=== PATIENT | female | born 1990 | race Caucasian/White ===

== ENCOUNTER → 2018-03-20 14:30 | Outpatient (CLI) | payer OTHER, SELFPAY ==
[2018-03-21 12:47] LABS: Chlamydia Trachomatis by PCR Negative (Negative); Neisserai gonorrhoeae by PCR Negative (Negative); Probe Check PASS; Sample Adequacy Control PASS; Specimen Processing Control PASS
== END ==
PROVIDERS: Visit Provider Obstetrics & Gynecology
DX: Z11.3 Encounter for screening for infections with a predominantly sexual mode of transmission (principal)
CPT/HCPCS: 87491; 87591

== ENCOUNTER → 2018-04-11 16:36 | Outpatient (CLI) | payer OTHER, SELFPAY ==
[2018-04-11 17:49] LABS: Absolute Lymphocyte Count 2.19 X10^3/ul (0.83-4.51); Absolute Neutrophil Count 6.1 X10^3/uL (2.0-7.7); Basophil# 0.02 X10^3/uL; Basophil% 0.2 % (0-1); Eosinophil# 0.13 X10^3/uL; Eosinophils% 1.4 % (0-5); Hematocrit 40.7 % (37-47); Hemoglobin 14.4 g/dl (12.0-15.0); Lymphocyte # 2.19 X10^3/ul (4.0); Mean Corp Hgb Conc 35.4 g/gl (32-36); Mean Corpuscular Hgb 29.6 pg (27.0-32.0); Mean Corpuscular Volume 83.7 fL (81-99); Mean Platelet Vol. 8.9 fl (6.2-12.0); Monocyte# 0.62 X10^3/uL; Monocyte% 6.8 % (0-10); Neutrophil # 6.13 X10^3/uL (2.7-7.7); Neutrophil % 67.3 % (47-70); Platelet Count 249 K/mm3 (150-450); RBC Distribution Width CV 11.9 % (11.6-14.6); RBC Distribution Width SD 36.4 fl (35.1-43.9); Red Blood Count 4.86 M/mm3 (4.2-5.4); White Blood Count 9.1 K/mm3 (4.4-11.0)
[2018-04-11 18:32] LABS: POSITIVE COUNT NO; POSITIVE DIFFERENTIAL NO; POSITIVE MORPHOLOGY NO
[2018-04-11 18:38] LABS: Color, Urine Straw (Yellow); Glucose, Dipstick Normal (Normal); Ketone-Dipstick Negative (Negative); Leukocyte Esterase-Dipstick Negative /ul (Negative); Nitrite-Dipstick Negative (Negative); Occult Blood-Urine Negative /ul (Negative); Protein-Dipstick Negative (Negative); Specific Gravity, Urine 1.005 (1.002-1.030); Urine Bilirubin Dipstick Negative (Negative); Urine Clarity Clear (Clear); Urine Urobilinogen Normal (Normal)
[2018-04-11 18:51] LABS: HIV - WCH Non-Reactive (Nonreactive); Rubella IgG 88.5 IU/mL
[2018-04-13 03:32] LABS: Prenatal RPR NONREACTIVE (NONREACTIVE)
[2018-04-14 20:15] LABS: HEPATITIS B SURFACE AG Negative (Negative); Hep C Antibodies <0.1 s/co ratio (0.0-0.9); V-Zoster IgG (Immunity) < 135 index (Immune >165)
== END ==
PROVIDERS: Visit Provider Obstetrics & Gynecology
DX: Z34.81 Encounter for supervision of other normal pregnancy, first trimester (principal)
CPT/HCPCS: 36415; 81002; 84443; 85025; 86703; 86762; 86787; 86803; 87340

== ENCOUNTER → 2018-09-25 | Outpatient (CLI) | payer OTHER, SELFPAY | END | disposition home or self-care (01) | LOC: LABSPEC 09-26 09:34 | PROVIDERS: Visit Provider Obstetrics & Gynecology | DX: Z36.85 Encounter for antenatal screening for Streptococcus B (principal) | CPT/HCPCS: 87081 ==

== ENCOUNTER 2018-10-30 05:35 | Inpatient (IN) | payer SELFPAY ==
[2018-10-30 05:25] VITALS: BMI 27.1
[2018-10-30 05:30] LABS: ROM Internal Control Test YES-OK TO RESULT pt. (Internal QC)
[2018-10-30 05:31] LABS: ROM Patient Test POSITIVE (Negative)
[2018-10-30] MEDS: Lactated Ringers 1,000 ML 50 ML IV ×4 (06:20→23:54)
[2018-10-30 06:47] LABS: Absolute Neutrophil Count 9.4 X10^3/uL (2.0-7.7); Basophil# 0.07 X10^3/uL; Basophil% 0.5 % (0-1); Eosinophil# 0.16 X10^3/uL; Eosinophils% 1.2 % (0-5); Hematocrit 36.8 % (37-47); Hemoglobin 13.1 g/dL (12.0-15.0); Lymphocyte % 18.9 % (19-41); Mean Corp Hgb Conc 35.6 g/dL (32-36); Mean Corpuscular Hgb 32.3 pg (27.0-32.0); Mean Corpuscular Volume 90.9 fL (81-99); Mean Platelet Vol. 9.6 fl (6.2-12.0); Monocyte% 7.3 % (0-10); NRBC Flagged by Analyzer 0 % (0-5); Neutrophil % 68.4 % (47-70); Platelet Count 205 K/mm3 (150-450); RBC Distribution Width CV 12.5 % (11.6-14.6); RBC Distribution Width SD 41.1 fl (35.1-43.9); Red Blood Count 4.05 M/mm3 (4.2-5.4); White Blood Count 13.7 K/mm3 (4.4-11.0)
--- NOTE | 2018-10-30 06:52 | HP.PCM_ITS ---
History and Physical Date of Admission: 10/30/18 [facility] History of this : 28 yo female Ab0 with EDC 10/23/2018 by 9 weeks 0 days Ultrasound, presents to Labor and Delivery. care remarkable for - NOT immune to chickenpox IgG low, MSAFP and CF testing declined, Prefers no epidural, Clomid , and childbirth ed classes encouarged. Presents in active labor at 41w0d with SROM at home. Pertinent Past Medical History: Non-smoker Allergies: No Known Allergies Medications: During - clomiphene citrate 50 mg tablet; Prometrium 200 mg capsule; clomiphene citrate 50 mg tablet; letrozole 2.5 mg tablet; Prometrium 200 mg capsule; Vitamin tablet Review of Systems: Non-contributory PHYSICAL EXAMINATION General Appearence: 28 yo female in no acute distress Vital Signs: AF, VSS Heart: RRR without rubs or gallops Lungs: CTA x 2 Breasts: deferred Abdomen: gravid Pelvis: Cervix: 2/50 Presentation: cephalic Station: -2 Fetus: Size: AGA Movement: present Heart: present Impression /Plan: Intrauterine in early labor. Preparations in pr ogress for delivery. Expect .
[2018-10-30] MEDS: Oxytocin 30 units/NS 500 ml 30 UNITS/500 ML IV.SOLN IV (07:30)
--- NOTE | 2018-10-30 07:52 | PCM.PN.BLA ---
Progress Note O positive RI. SROM this am at 0245 Admitted for Pitocin induction at 41 wks. Pitocin at 2 mIU/min EFM 130-140s accels. Irregular UCs at intervals of more than q 10 mins CX: deferred, at admission 2 /60/-2 +ROM A/P: 41 wk induction after SROM. Continue Pitocin Watch progress and tolerance of labor.
--- NOTE | 2018-10-30 13:01 | PCM.PN.BLA ---
Progress Note LABOR PROGRESS SROM at 41 wk In shower Plans no epidural. AVSS Pitocin at 5 mIU/min (dec from 8 mIU/min d/t many UCs) EFM 130-140s avg variability. Accels. Category I tracing UCs q 3-5 mins CX last RN check 3 1/2 cm, 80 / -1 A/P: 41 wk SROM. Labor. Pitocin induction. Continue Pitocin. Watch progress, descent.
[2018-10-30] MEDS: Nalbuphine 10 MG/ML Ampul IV (15:31)
--- NOTE | 2018-10-30 18:24 | PCM.PN.BLA ---
Progress Note 41 wk SROM this am 0245. Light [facility] now S/P Nubain for pain. Wanting another dose soon. Has been back and forth to shower AVSS Pitocin at 9 mIU/min EFM: 120-130s avg variability. Accels early decels, variable decels. Category I tracing UCs q 2-3 mins. CX: 7/100/-1 A/P 41 wk SROM pitocin induction after SROM. Adequate progress. Continue labor.
[2018-10-30] MEDS: fentaNYL-bupivacaine (epidural) 100 ML BAG EPIDURAL ×2 (19:08→23:18)
--- NOTE | 2018-10-30 23:36 | PN_ITS ---
Progress Note 41 wk SROM at 0245 10/30/18 Comfortable w/ epidural and not feeling UCs or pressure with UCs. Pitocin turned off 2/2 variables . some ? lates (on external monitoring). AVSS EFM 120-140s avg variability with accels. Also periods of dec variability. Variables noted (some with late onset), lasting up to 1 min Accel prior to variable. Most variables with UCs. [place] with UCs q 2-5 , now to 8 min without pitocin AGA fetus. CX reducible anterior lip, caput noted. 0 to +1 station IUPC placed for potential amnioinfusion. Scalp stim noted. A/P: 41 wk EGA nearing 41 1/7 wk EGA SROM 21 hr ago. Remains afeb, with inadequate UCs w/o pitocin. Resume pitocin and inc prn to adequate mVUs. Begin pushing, consider amnioinfusion prn.
[2018-10-30] MEDS: Amnioinfusion- 0.9% NS 1,000 ML IV.SOLN. INTRA-UTER (23:47)
[2018-10-31] MEDS: Oxytocin 30 units/NS 500 ml 30 UNITS/500 ML IV.SOLN 334 UNITS IV (02:56)
--- NOTE | 2018-10-31 03:05 | PCM.OPRPT ---
Vaginal Delivery Maternal Presentation: Spontaneous Rupture of Membranes 41 wk SROM Method of Induction: Pitocin Amniotic Membrane Rupture Type: Spontaneous at home Rupture of Membrane time: 0230 10/30/18 Amniotic Fluid Description: Clear - to meconium stained fluid in labor. Final LILIA: 10/23/18 Final LILIA Source: US <20 weeks Gestational age: 41 Weeks and 1 Days Date of Procedure: 10/31/18 Pre-Operative Diagnosis: 41 wk SROM Post-Operative Diagnosis: 41 1/7 wk induction Surgery/ Procedure Performed: Spontaneous Vaginal Delivery Type of Anesthesia: Epidural Description of Procedure: Vacuum assisted vaginal delivery. Significant caput. single pull in green zone on [place] resulted in vaginal delivery. Head delivered CAMILO. OP and nares bulb suctioned on perineum. Nuchal cord times two reduced. Shoulders delivered easily Infant to maternal abdomen for warming, then to Dr Dean present for delivery 2/2 vacuum assist and meconium stained fluid. Routine ABG and VBG collected Infant back to maternal abdomen after Dr. Dean evaluated. PP exam; 2nd deg posterior vaginal and perineal laceration. Repaired under epidural to hemostatic, intact t with 3-0 Vicryl No other lacerations. Placenta delivered by spont expulsion, 3V normal appearing, intact with trailing membranes. Meconium stained. EBL 350 cc pt and infant tole delivery well> to recovery, stable condition [place] and needle counts correct times two. Presentation: Vertex, CAMILO Placental Delivery Description: Spontaneous, Expressed Placenta Disposition: [facility] Cord Vessel Description: 3 Vessels Cord Entanglement: Around neck x 2, loose Drain: [place] to straight drain Estimated Blood Loss: 350 A gender: Male Episiotomy Description: None Laceration: Midline, Perineal Extension/lac, Vaginal Extension/lac, 2nd degree Medications given after delivery: IV Pitocin Complications: None
--- NOTE | 2018-10-31 03:12 | DCINST_ITS ---
Discharge Diet: No Restrictions Discharge Activity: May Shower, May Take a Tub Bath May resume sexual activity in: 4-6 weeks Additional Activity Instructions:: Nothing in the vagina for 4-6 weeks. You may return to work/school in 6 weeks. Additional Instructions: If you experience any of the following, contact your healthcare provider. * Bleeding that soaks a pad every hour for 2 hours * Fever 100.4 or higher * Unrelieved abdominal pain * Problems urinating (including inability to urinate or burning while urinating). * Visual changes * Severe headache * Flu-like symptoms * Pain or redness in one of both of your breasts * Pain, warmth, tenderness or swelling in your legs, especially the calf area * Frequent nausea and vomiting * Symptoms of depression or anxiety If you experience any of the following, call 911 or go to the nearest Emergency Room. * Chest pain * Problems breathing * Seizure activity * Partial or complete paralysis of a body part, slurred speech, weakness or drooping of the face, or a sudden inability to walk or hold your balance Allergies/Adverse Reactions: Allergies No Known Allergies Allergy (Verified 10/30/18 05:21) Medications to take at Discharge Pnv No.121/Iron/Folic Acid [ Multivitamin Tablet] 1 ea PO DAILY 10/30/18 Please Follow Up With: Lionel Zelaya MD - [phone] When: Call to make an appointment with your doctor in 6 weeks. Primary Care Physician: Care Physician,No Primary [Primary Care Provider] - Test Results: Test results from this visit will be discussed in further detail at your follow- up appointment, if applicable. Proposed Discharge Date: 11/02/18
--- NOTE | 2018-10-31 03:12 | PCM.DCVAG ---
Discharge Diet: No Restrictions Discharge Activity: May Shower, May Take a Tub Bath May resume sexual activity in: 4-6 weeks Additional Activity Instructions:: Nothing in the vagina for 4-6 weeks. You may return to work/school in 6 weeks. Additional Instructions: If you experience any of the following, contact your healthcare provider. Bleeding that soaks a pad every hour for 2 hours Fever 100.4 or higher Unrelieved abdominal pain Problems urinating (including inability to urinate or burning while urinating). Visual changes Severe headache Flu-like symptoms Pain or redness in one of both of your breasts Pain, warmth, tenderness or swelling in your legs, especially the calf area Frequent nausea and vomiting Symptoms of depression or anxiety If you experience any of the following, call 911 or go to the nearest Emergency Room. Chest pain Problems breathing Seizure activity Partial or complete paralysis of a body part, slurred speech, weakness or drooping of the face, or a sudden inability to walk or hold your balance Allergies/Adverse Reactions: Allergies No Known Allergies Allergy (Verified 10/30/18 05:21) Medications to take at Discharge Pnv No.121/Iron/Folic Acid [ Multivitamin Tablet] 1 ea PO DAILY 10/30/18 Please Follow Up With: Lionel Zelaya MD - [phone] When: Call to make an appointment with your doctor in 6 weeks. Primary Care Physician: Care Physician,No Primary [Primary Care Provider] - Test Results: Test results from this visit will be discussed in further detail at your follow-up appointment, if applicable. Proposed Discharge Date: 11/02/18
[2018-10-31] MEDS: Oxytocin 30 units/NS 500 ml 30 UNITS/500 ML IV.SOLN 167 UNITS IV (03:27)
[2018-10-31] MEDS: 0.9% Saline Lock 10 ML Syringe IV (05:00)
[2018-10-31 08:15] VITALS: BP 135/64; PULSE 105; RESP 16; TEMP 37.2
--- NOTE | 2018-10-31 08:26 | PCM.PN.OB ---
Subjective: Day of delivery Vacuum assisted vaginal delivery Deep variables with pushing. CAN times two at delivery. Doing well. No concerns voiced. Breast feeding. Baby just over 6# weight. - Physical Exam General: Alert, Oriented x3, Cooperative, No apparent distress HEENT: Atraumatic, EOMI Neck: Supple Abdomen: Soft - Fundus firm NT inferior to umbilicus. Minimal lochia on pad Psych/Mental Status: Normal Affect Weight: 67.318 kg Body Mass Index (BMI) 27.1 Intake and Output for Last 24 Hours 10/29/18 10/30/18 10/31/18 23:59 23:59 23:59 Intake Total 2948 / 2948 1979 / 1979 Output Total 1300 / 1300 1900 / 1900 Balance 1648 / 1648 80 / 80 Laboratory Tests Past 24 Hrs 10/30/18 06:25 Blood Type O POSITIVE Antibody Screen NEGATIVE Medical Necessity - Tobacco Use Smoking Status: Never smoker Assessment/Plan PPD#0 day of delivery. Vacuum assist Stable continue routine care.
[2018-10-31] MEDS: Prenatal Vits Tablet 1 TABLET PO (10:24)
[2018-10-31 12:10] VITALS: BP 117/68; PULSE 99; RESP 16; TEMP 36.6
[2018-10-31 17:30] VITALS: BP 108/55; PULSE 77; RESP 16; TEMP 36.9
[2018-10-31 20:07] VITALS: BP 127/68; PULSE 108; RESP 16; TEMP 36.6; O2SAT 98
[2018-11-01 00:21] VITALS: BP 104/53; PULSE 92; RESP 16; TEMP 36.9
--- NOTE | 2018-11-01 01:09 | NURSING ---
this RN confirmed with [facility] that they are charging for the breast pump being used. education given to pt concerning pump settings and frequency of when to pump. pt aware to label and take colostrum to [facility] as needed.
[2018-11-01 03:26] VITALS: BP 106/62; PULSE 93; RESP 16; TEMP 37.2
[2018-11-01 08:00] VITALS: BP 112/64; PULSE 90; RESP 16; TEMP 36.4
--- NOTE | 2018-11-01 08:15 | PCM.PN.OB ---
Subjective: PPD#1 Vacuum assisted vaginal delivery Doing well. Some soreness at perineum. Breast feeding. Minimal pain and minimal bleeding. - Physical Exam General: Alert, Oriented x3, Cooperative, No apparent distress HEENT: Atraumatic Neck: Supple Abdomen: Soft - Fundus firm NT at inferior to umbilicus Neurological: Cranial nerves II-XII grossly intact Psych/Mental Status: Normal Affect Vital Signs Temp Pulse Resp BP Pulse Ox 97.5 F L 90 16 112/64 98 11/01/18 08:00 11/01/18 08:00 11/01/18 08:00 11/01/18 08:00 10/31/18 20:07 Oxygen Delivery Method Room Air Weight: 67.318 kg Body Mass Index (BMI) 27.1 Intake and Output for Last 24 Hours 10/30/18 10/31/18 11/01/18 23:59 23:59 23:59 Intake Total 2948 / 2948 1979 / 1979 Output Total 1300 / 1300 4100 / 4100 Balance 1648 / 1648 -2120 / -2120 Medical Necessity - Tobacco Use Smoking Status: Never smoker Assessment/Plan PPD#1 day of delivery. Vacuum assist Stable continue routine care.
[2018-11-01] MEDS: Prenatal Vits Tablet 1 TABLET PO (12:25)
[2018-11-01 13:49] VITALS: BP 99/57; PULSE 84; RESP 14; TEMP 36.1
[2018-11-01 13:54] LABS: Hematocrit 35.9 % (37-47); Hemoglobin 12.4 g/dL (12.0-15.0); Mean Corp Hgb Conc 34.5 g/dL (32-36); Mean Corpuscular Hgb 32.2 pg (27.0-32.0); Mean Corpuscular Volume 93.2 fL (81-99); Mean Platelet Vol. 9.6 fl (6.2-12.0); Platelet Count 254 K/mm3 (150-450); RBC Distribution Width CV 12.9 % (11.6-14.6); Red Blood Count 3.85 M/mm3 (4.2-5.4); White Blood Count 17.2 K/mm3 (4.4-11.0)
[2018-11-01 18:00] VITALS: BP 107/66; PULSE 84; RESP 16; TEMP 36.7
[2018-11-01 19:54] VITALS: BP 111/63; PULSE 94; RESP 16; TEMP 36.7
[2018-11-02 02:48] VITALS: BP 99/65; PULSE 84; RESP 18; TEMP 36.4
--- NOTE | 2018-11-02 08:19 | PCM.PN.BLA ---
Progress Note Attempted to round. patient not in room. Baby is in [facility]. Probable dischg on 11/03/18
[2018-11-02 10:00] VITALS: BP 110/81; PULSE 95; RESP 15; TEMP 36.7; O2SAT 98
--- NOTE | 2018-11-02 13:04 | PCM.PN.OB ---
Subjective: talking on phone NAD - Physical Exam General: Alert, Oriented x3 HEENT: Atraumatic, EOMI Neck: Supple Psych/Mental Status: Normal Affect Vital Signs Temp Pulse Resp BP Pulse Ox 98.1 F 95 15 110/81 H 98 11/02/18 10:00 11/02/18 10:00 11/02/18 10:00 11/02/18 10:00 11/02/18 10:00 Oxygen Delivery Method Room Air Weight: 67.318 kg Body Mass Index (BMI) 27.1 Intake and Output for Last 24 Hours 10/31/18 11/01/18 11/02/18 23:59 23:59 23:59 Intake Total 1979 / 1979 Output Total 4100 / 4100 Balance -2120 / -2120 Laboratory Tests Past 24 Hrs 11/01/18 13:35 WBC 17.2 H RBC 3.85 L Hgb 12.4 Hct 35.9 L MCV 93.2 MCH 32.2 H MCHC 34.5 RDW Std Deviation 44.0 H RDW Coeff of Loren 12.9 Plt Count 254 MPV 9.6 Medical Necessity - Tobacco Use Smoking Status: Never smoker Assessment/Plan PPD#2 day of delivery. Vacuum assist Stable Unable to round 2/2 not in room, then on phone. Doing well according to chart review NAD on phone Dischg home. Eligible for hotel status if baby is not released. RTO in 6 wk for pp check. , prn sooner.
--- NOTE | 2018-11-02 13:06 | PCM.DC.SUM ---
Discharge Date and Diagnosis Date of Admission: 10/30/18 - 41 wk SROM Date of Discharge: 11/02/18 Hospital Course and Treatment Summary of Care Provided: The patient is a 28 year old female admitted for induction for SROM on 10/30/18 Slow progress to complete and delivered by vacuum assisted vaginal delivery 0300 (approx time) 10/31/18 course uneventful. in [facility]. Home on PPD#2 - Physical Exam Vital Signs Temp Pulse Resp BP Pulse Ox 98.1 F 95 15 110/81 H 98 11/02/18 10:00 11/02/18 10:00 11/02/18 10:00 11/02/18 10:00 11/02/18 10:00 Oxygen Delivery Method Room Air Weight: 67.318 kg Body Mass Index (BMI) 27.1 Intake and Output for Last 24 Hours 10/31/18 11/01/18 11/02/18 23:59 23:59 23:59 Intake Total 1979 / 1979 Output Total 4100 / 4100 Balance -2120 / -2120 Laboratory Tests Past 24 Hrs 11/01/18 13:35 WBC 17.2 H RBC 3.85 L Hgb 12.4 Hct 35.9 L MCV 93.2 MCH 32.2 H MCHC 34.5 RDW Std Deviation 44.0 H RDW Coeff of Loren 12.9 Plt Count 254 MPV 9.6 Discharge Diet: No Restrictions Discharge Activity: May Shower, May Take a Tub Bath May resume sexual activity in: 4-6 weeks Additional Activity Instructions:: Nothing in the vagina for 4-6 weeks. You may return to work/school in 6 weeks. Home Medications: Medications to take at Discharge Pnv No.121/Iron/Folic Acid [ Multivitamin Tablet] 1 ea PO DAILY 10/30/18 Primary Care Physician: Care Physician,No Primary [Primary Care Provider] - Please Follow Up With: Lionel Zelaya MD - [phone] Medical Necessity - Tobacco Use Smoking Status: Never smoker Meaningful Use Info Meaningful Use Diagnoses (Choose all that apply): None applicable
== END 2018-11-02 11:30 | disposition home or self-care (01) | DRG 807 ==
LOC: WPOUT 05:38 → WP 10-31 02:56
PROVIDERS: Obstetrics & Gynecology; Admitting Provider Obstetrics & Gynecology; Referring Provider Obstetrics & Gynecology; Visit Provider Obstetrics & Gynecology
DX: O76 Abnormality in fetal heart rate and rhythm complicating labor and delivery (principal); Z37.0 Single live birth; O77.0 Labor and delivery complicated by meconium in amniotic fluid; Z3A.41 41 weeks gestation of pregnancy; O48.0 Post-term pregnancy; O69.81X0 Labor and delivery complicated by cord around neck, without compression, not applicable or unspecified; O70.1 Second degree perineal laceration during delivery
CPT/HCPCS: 59025; 59050; 84112; 85025; 85027; 86850; 86900; 99218; J7030; J7120; A4216; G0378

== ENCOUNTER → 2018-12-12 12:29 | Outpatient (CLI) | payer OTHER, SELFPAY ==
[2018-12-18 11:26] LABS: HPV Reflexed? NOT INDICATED
== END ==
PROVIDERS: Referring Provider Obstetrics & Gynecology; Visit Provider Obstetrics & Gynecology
DX: Z12.4 Encounter for screening for malignant neoplasm of cervix (principal)
CPT/HCPCS: 87624; 88175; G0145

== ENCOUNTER → 2020-09-23 11:26 | Outpatient (CLI) | payer OTHER, SELFPAY ==
[2020-09-25 03:07] LABS: Chlamydia By Nucleic Acid AMP Negative (Negative)
[2020-09-26 09:57] LABS: Gonococcus By Nucleic Acid AMP Negative (Negative)
[2020-09-30 11:16] LABS: HPV APTIMA, High Risk Negative (Negative); HPV Reflexed? YES, CHARGE PATIENT
== END ==
PROVIDERS: Visit Provider Obstetrics & Gynecology
DX: Z12.4 Encounter for screening for malignant neoplasm of cervix (principal); Z11.3 Encounter for screening for infections with a predominantly sexual mode of transmission
CPT/HCPCS: 87491; 87591; 87624; 88175; G0145

== ENCOUNTER → 2021-02-23 | Outpatient (CLI) | payer SELFPAY | END | disposition home or self-care (01) | LOC: LABSPEC 02-24 09:54 | PROVIDERS: Visit Provider Obstetrics & Gynecology | DX: Z36.85 Encounter for antenatal screening for Streptococcus B (principal) | CPT/HCPCS: 87081 ==

== ENCOUNTER 2021-03-06 07:20 | Inpatient (IN) | payer SELFPAY ==
[2021-03-06] VITALS (25 sets, daily range): BP systolic 97–129; BP diastolic 57–77; PULSE 72–110; RESP 18; TEMP 36.2–36.8; O2SAT 96–98; BMI 25.1
--- NOTE | 2021-03-06 01:55 | NURSING ---
ROM collected. results to be determined.
[2021-03-06 02:15] LABS: ROM Internal Control Test YES-OK TO RESULT pt. (Internal QC)
[2021-03-06 02:16] LABS: ROM Patient Test POSITIVE (Negative)
--- NOTE | 2021-03-06 07:51 | PCM.HP.BLA ---
History and Physical Date of Admission: 03/06/21 HPI: 30 yo at 38/2w, LILIA 03/18/21 by LMP, admitted with spontaneous rupture of membranes. Reports rupture of membranes at 2300 on 03/05/2021, reports some bloody mucus as well. Denies regular contractions. Reports movement. Denies headache, vision changes, chest pain, shortness of breath, nausea or vomiting, fevers chills, diarrhea or constipation. complicated by: Nothing CLINICAL LAB ASSISTANT history: G1: 41/1-week vacuum-assisted vaginal delivery for 3-hour pushing G2: current Medical history: Denies Surgical history: Tonsillectomy and adenoidectomy Medications: vitamin Allergies: No known drug allergies Family history: No history of blood clots or bleeding disorders Social history: Denies alcohol, smoking, drug use Review of systems: Negative otherwise noted above Physical exam: Vitals: Blood pressure 119/76 // pulse 96 // temperature 98.1 ?F // 97% oxygen saturation on room air General: Patient is no acute distress, comfortable resting in bed HEENT: Normocephalic/atraumatic, pupils equally round and reactive to light and accommodation Cardiorespiratory: No increased effort, no use of accessory muscles, regular heart rate Abdomen: Soft, nontender, gravid Extremities: No edema Neurologic: Cranial nerves II through XII grossly intact Musculoskeletal: Equal strength and movement throughout all extremities Sterile speculum exam: [place]-tinged fluid on swab, ferning slide collected however not used based on cervical exam. Cervical exam completed noting dilation of 4 cm / 60% effaced/-1 station. Moderate amount of blood-tinged fluid noted on exam. Confirming rupture of membranes. Bedside ultrasound: Fetus in cephalic position, HANSA minimal Labs: Blood type O+ Hepatitis B/C both negative Syphilis nonreactive HIV pending GBS negative 02/23 Assessment/plan 30-year-old G2, P1 at 38/2 weeks admitted with spontaneous rupture of membranes and labor. uncomplicated. -Rupture of membranes confirmed with leakage of moderate amount of blood-tinged fluid on cervical exam, no membranes palpated, bedside ultrasound with minimal amniotic fluid noted. Additionally patient has made cervical change from 2.5 cm to 4 cm since arrival to labor and delivery. -Plan for expectant management at this time. Will reevaluate cervical change and if Pitocin augmentation needed we will add at that time. -GBS negative -Admit to L&D Assessment & Plan Assessment/Plan (1) Spontaneous rupture of amniotic membranes:
[2021-03-06] MEDS: Lactated Ringers 1,000 ML 50 ML IV (08:00)
[2021-03-06 08:31] LABS: Absolute Lymphocyte Count 2.26 X10^3/uL (0.83-4.51); Absolute Neutrophil Count 10.3 X10^3/uL (2.0-7.7); Basophil# 0.12 X10^3/uL; Basophil% 0.8 % (0-1); Eosinophil# 0.15 X10^3/uL; Eosinophils% 1.1 % (0-5); Hematocrit 35.6 % (37-47); Hemoglobin 12.4 g/dL (12.0-15.0); Lymphocyte # 2.26 X10^3/ul (0.83-4.51); Lymphocyte % 15.9 % (19-41); Mean Corp Hgb Conc 34.8 g/dL (32-36); Mean Corpuscular Hgb 31.2 pg (27.0-32.0); Mean Corpuscular Volume 89.4 fL (81-99); Mean Platelet Vol. 9.4 fl (6.2-12.0); Monocyte% 6.3 % (0-10); NRBC Flagged by Analyzer 0 % (0-5); Neutrophil # 10.29 X10^3/uL (2.7-7.7); Neutrophil % 72.4 % (47-70); Platelet Count 210 K/mm3 (150-450); RBC Distribution Width CV 13.2 % (11.6-14.6); RBC Distribution Width SD 42.6 fl (35.1-43.9); Red Blood Count 3.98 M/mm3 (4.2-5.4); White Blood Count 14.2 K/mm3 (4.4-11.0)
[2021-03-06 09:27] LABS: HIV - WCH Non-Reactive (Nonreactive)
--- NOTE | 2021-03-06 15:16 | PCM.PN.BLA ---
Progress Note AROM forebag, blood tinged. CE /0. FHR cat I 135/mod mendy/+accel/no decel/. [place] q5. continue expectant management as patient is progressing.
[2021-03-06] MEDS: Oxytocin 30 units/NS 500 ml 30 UNITS/500 ML IV.SOLN 334 UNITS IV (16:45)
--- NOTE | 2021-03-06 16:56 | EX.PCM.OBRPT ---
Maternal Data Information Final LILIA: 03/18/21 Final LILIA Source: LMP Vaginal Delivery Operative Information Date of Procedure: 03/06/21 Pre-Operative Diagnosis: Hodgsno intrauterine Post-Operative Diagnosis: Hodgson intrauterine Surgery / Procedure Performed: Spontaneous Vaginal Delivery Type of Anesthesia: None Estimated Blood Loss: 400cc Findings Description of Procedure: Spontaneous vaginal delivery viable female. No nuchal cord. Baby to mom, cord clamped and cut. Spontaneous delivery of placenta. First degree laceration repaired in usual fashion, hemostatic. Left labial abrasion, hemostatic. Infant A Gender: Female (1 minute): 8 (5 minute): 9
[2021-03-06] MEDS: Ibuprofen 600 MG Tablet PO (17:47)
[2021-03-07] VITALS (10 sets, daily range): BP systolic 90–109; BP diastolic 55–68; PULSE 88–100; RESP 14–18; TEMP 36.5–36.7
--- NOTE | 2021-03-07 10:45 | PN.OBGYN_ITS ---
Subjective Subjective day 1. Feeling well. Lochia minimal. Pain controlled. Breast- feeding going well. Objective Data Objective Data Vital Signs: Vital Signs Temp Pulse Resp BP Pulse Ox 98.1 F 88 16 100/56 L 98 03/07/21 07:59 03/07/21 07:59 03/07/21 07:59 03/07/21 07:59 03/06/21 14:52 Oxygen Delivery Method Room Air Weight: 62.3 kg Body Mass Index (BMI) 25.1 Intake & Output: Intake and Output for Last 24 Hours 03/05/21 03/06/21 03/07/21 23:59 23:59 23:59 Intake Total 500.83 / 500.83 Output Total 500 / 500 Balance 0.83 / 0.83 Lab / Micro Data Result Diagrams: 03/06/21 07:50 Micro: Microbiology 03/06/21 07:50 Nasal Secretion SARS-CoV-2 Antigen (Rapid) - Final Physical Exam Const alert, oriented x3 and no apparent distress HEENT normocephalic Head and Scalp: atraumatic Neck full ROM Resp normal respiratory effort Cardio regular rate GI normal to inspection, nondistended, normoactive bowel sounds GI Narrative: Uterus 2 cm below umbilicus Back/Spine normal ROM Extremity normal to inspection Extremity Narrative: Minimal pedal edema Neuro no focal motor deficits and no sensory deficits noted Psych mental status grossly normal and affect normal Assessment & Plan (1) state: PLAN: day 1. Breast-feeding. Desires home-going today. Follow-up 2 weeks telehealth visit and 6-week visit. (2) Vaginal delivery:
--- NOTE | 2021-03-07 10:46 | PCM.DC ---
Discharge Instructions Diet Discharge Diet: No restrictions Activity Discharge Activity: Return to Normal Activity and May Shower May resume sexual activity in: 4-6 weeks Weight Bearing Status: Weight bearing as tolerated Lifting Restrictions: No greater than 25 pounds Dressing / Incision Call your doctor if you observe: Fever of 101 or Higher, Change in Color, Inability to urinate, Using more than 1 pad per hour, Shortness of breath, Dizziness, Swelling in the ankles, Chest pain and Calf discomfort Follow Up Care Please Follow Up With: Lionel Zelaya MD When: 2-week telehealth appointment and 6-week visit Test Results: Test results from this visit will be discussed in further detail at your follow-up appointment, if applicable. Discharge Plan Admission Admit Date/Time: 03/06/21 07:20 Primary Reason for Your Visit: Labor Attending Provider: Antonella Griffith Primary Care Provider: Joann Pandey Primary Discharge Orders/Prescriptions Prescriptions: No Action PNV no.[id number] acid 1 EACH tablet 1 ea PO DAILY RF: 0 Referrals / Follow Up: Care Physician,No Primary [Primary Care Provider] - Disposition Disposition (needs filled in before D/C Order can be placed): Home, Self Care
== END 2021-03-07 20:13 | disposition home or self-care (01) | DRG 807 ==
LOC: WPOUT 07:28 → WP 07:31
PROVIDERS: Admitting Provider Student in an Organized Health Care Education/Training Program; Referring Provider Student in an Organized Health Care Education/Training Program; Visit Provider Student in an Organized Health Care Education/Training Program
DX: O70.0 First degree perineal laceration during delivery (principal); Z37.0 Single live birth; Z3A.38 38 weeks gestation of pregnancy
CPT/HCPCS: 59025; 59050; 76815; 84112; 85025; 86703; 86850; 86900; 86901; 87426; 99218; J7120; G0378

== ENCOUNTER → 2024-10-10 | Outpatient (CLI) | payer SELFPAY ==
[2024-10-10 12:19] LABS: Hematocrit 39.6 % (37-47); Hemoglobin 13.8 g/dL (12.0-15.0); Immature Granulocytes Count 0.050 X10^3/uL (0.0-0.0); Mean Corp Hgb Conc 34.8 g/dL (32-36); Mean Corpuscular Volume 85.0 fL (81-99); Mean Platelet Vol. 8.8 fl (6.2-12.0); NRBC Flagged by Analyzer 0 % (0-5); Platelet Count 343 K/mm3 (150-450); RBC Distribution Width CV 11.9 % (11.6-14.6); RBC Distribution Width SD 36.3 fl (35.1-43.9); Red Blood Count 4.66 M/mm3 (4.2-5.4); White Blood Count 7.9 K/mm3 (4.4-11.0)
[2024-10-10 13:04] LABS: HIV Nonreactive (Nonreactive); Hepatitis B Surface Antigen Nonreactive (Nonreactive); Hepatitis C Antibody Nonreactive (Nonreactive); Syphilis Antibodies Nonreactive (Nonreactive)
[2024-10-11 22:07] LABS: Chlamydia By Nucleic Acid AMP Negative (Negative); Gonococcus By Nucleic Acid AMP Negative (Negative)
[2024-10-13 15:07] LABS: HPV APTIMA, High Risk Negative (Negative)
== END | disposition home or self-care (01) ==
PROVIDERS: Visit Provider Advanced Practice Midwife
DX: O09.90 Supervision of high risk pregnancy, unspecified, unspecified trimester (principal); Z3A.00 Weeks of gestation of pregnancy not specified; Z12.4 Encounter for screening for malignant neoplasm of cervix
CPT/HCPCS: 36415; 85025; 86703; 86762; 86780; 86803; 86850; 86900; 86901; 87086; 87340; 87491; 87591; 87624; 88175; G0145

== ENCOUNTER → 2024-12-30 | Outpatient (CLI) | payer SELFPAY ==
--- NOTE | 2024-12-30 12:06 | US_ITS ---
PROCEDURE: OB ANATOMY W/ TRANSVAGINAL 12/30/2024 REASON FOR EXAM: ANATOMY ULTRASOUND Routine survey TECHNIQUE: Procedure Code: [id number] Modality: US Procedure: OB ANATOMY W/ TRANSVAGINAL COMPARISON: None FINDINGS Number: 1 Position: Breech Placental Position: Anterior Placental Abnormalities: None DIMENSIONS: Biparietal Diameter: 5.0 cm/21 weeks 0 days Head Circumference: 18.5 cm/20 weeks 6 days Abdominal Circumference: 15 cm/20 weeks 2 days Femur Length: 3.1 cm/19 weeks 5 days ESTIMATED WEIGHT: 335 g +/-50 g ESTIMATED WEIGHT PERCENTILE (24+ weeks): 37 ESTIMATED GESTATIONAL AGE: By Ultrasound: 20 weeks 4 days ESTIMATED DATE OF DELIVERY: By Ultrasound: 05/15/2025 BIOPHYSICAL ASSESSMENT: Amniotic Fluid Volume: Subjectively normal with largest pocket measuring 4 cm Amniotic Fluid Index: (8-24 cm normal range) Cardiac Motion: 157 (average) Trunk and Limb Motion: Present. MATERNAL ANATOMY: Adnexa: Neither maternal ovary is successfully identified. Cervical Length (if measured): 3 cm ANATOMY: Spine: Sonographically normal Cranium: Sonographically normal Cerebellum: Sonographically normal Cisterna Magna: Sonographically normal Cavum Septum Pellucidi: Sonographically normal Lateral Ventricles: Sonographically normal Choroid Plexus: Sonographically normal Midline Falx: Sonographically normal Nuchal Fold: Sonographically normal Upper Lip: Sonographically normal Heart: Sonographically normal Ventricular Outflow Tracts: Seen Stomach: Sonographically normal Kidneys: A nonspecific subtle dilatation of the left renal pelvis at 3 mm Bladder: Sonographically normal Umbilical Cord: Three-vessel umbilical cord seen attaching the midline of the abdomen Extremities: Sonographically normal Incidental note is made of uterine syncytiae to the right of the placenta which may be from previous inflammation US/OB Anatomy w/ Transvaginal IMPRESSION: Single live intrauterine at 20 weeks 4 days by current ultrasound wit h a LILIA of 05/15/2025. Heart rate at 157 beats per minute. Placenta is anterior position is breech anatomical survey showed no suspicious abnormalities Incidental note is made of uterine syncytiae to the right of the placenta Reading Location: [id number]
== END | disposition home or self-care (01) ==
PROVIDERS: Referring Provider Advanced Practice Midwife; Visit Provider Advanced Practice Midwife
DX: O09.90 Supervision of high risk pregnancy, unspecified, unspecified trimester (principal); Z3A.00 Weeks of gestation of pregnancy not specified
CPT/HCPCS: 76805; 76817

== ENCOUNTER → 2025-02-24 | Outpatient (CLI) | payer OTHER, SELFPAY ==
--- OUTSIDE RECORDS SUMMARY | 2025-02-24 09:14 | XMS RPT_ITS | CCD ---
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 follow up unless otherwise noted in visit notes/problem list details Initial Weight: Not Recorded Date -???-???-???-???-?? ?-???-???-???-???-? ??-???-???- EGA Weight BP Urine Prot -???-???-???-???-?? ?-???-???-???-???-? ??-???-???- Glucose FHR FuHt Pres Dilation -???-???-???-???-?? ?-???-???-???-???-? ??-???-???- Effaced St Visit Note 10/10/24 -???-???-???-???-?? ?-???-???-???-???-? ??-???-???- 8w 5d 127 lb 2 oz 115/80 -???-???-???-???-?? ?-???-???-???-???-? ??-???-???- 185 -???-???-???-???-?? ?-???-???-???-???-? ??-???-???- KW- CRL 2.09 cm and cons with dates. Declines NIPT. 11/06/24 -???-???-???-???-?? ?-???-???-???-???-? ??-???-???- 12w 4d 123 lb 9 oz 109/73 Negative -???-???-???-???-?? ?-???-???-???-???-? ??-???-???- Negative 184 -???-???-???-???-?? ?-???-???-???-???-? ??-???-???- KW- no vb/cr amping. feeling much better. US ordered with WC. 12/03/24 -???-???-???-???-?? ?-???-???-???-???-? ??-???-???- 16w 3d 127 lb 9 oz 102/68 Negative -???-???-???-???-?? ?-???-???-???-???-? ??-???-???- Negative 166 -???-???-???-???-?? ?-???-???-???-???-? ??-???-???- -No VB, HIEU F. Roberto FM. Nausea resolved ACOG First Trimester First Trimester: Desire for , Alcohol, Tobacco Cessation, Illicit/Recreationa l Drug/Substance Use, Intimate Partner Violence, Barriers to care, Unstable Housing, Communication Barriers, Environmental/Work Hazards, Anticipated (more content not included)... Normal [facility] - Chemistry and C hemistry - challengeOrdered By: Gail Murphy on 11-06-2024 Glucose Ql (U) Negative [facility] - UrinalysisOrder ed By: Gail Murphy on 11-06-2024 Protein Ql (U) Negative [facility] Child Care Supervisor Office Visit Reporton 11-06-2024 Child Care Supervisor Office Visit Report [facility] [address], [address] [place] [address] OFFICE VISIT Date of Service: 11/06/24 MR#: [id number] Acct: [id number] Name: DOLLY GRAY Rep #: [id number] : 1990 Provider: VASYL Sam ams Age/Sex: 34/F Location: [place] Status: Signed Intake Vital Signs 10/10/24 10:33 11/06/24 14:41 Height 5 ft 2 in 5 ft 2 in Weight: 123 lb 9 oz BMI 22.6 BP 109/73 Intake Visit Reasons: 12 wk ob Picture Frames Inspector Required: No Is patient in pain?: No Feel stressed/tense/nerv ous/anxious/difficu lty sleeping: not at all Allergies No Known Allergies Allergy (Verified 11/06/24 14:39) Medications ???Medication ???Instructions ???Recorded ???Confirmed ???Type vitamins no.121-iron 28 1 ea PO DAILY 10/30/18 0 11/06/24 History mg-folic acid 800 mcg tablet Last Menstrual Period: 08/10/24 Zika: Zika virus screening: Negative : No PFSH PFSH Surgical History History of tonsillectomy Social History adopted: No household members: spouse and children housing: house number of children: 2 current occupational status: unemployed current occupation: [employer] pets and animals: Yes (Avoid litterbox) pets and animals: cat(s) and dog(s) history of recent travel: Yes (July) out of state: Yes out of country: No sexually active: Yes Smoking Status: Never smoker alcohol intake: never substance use type: does not use well-balanced diet: daily or most days caffeine: Yes Type: coffee Number of servings: 1 eating out: rarely or never during the past year weight has: remained stable what type of physical activity do you participate in: none ben/holiness: Bahai seatbelt use: always do you feel safe at home: Yes additional social history: Andrey History 2 Elective abortions Hx Para 2 Spontaneous abortions Hx # Term Pregnancies 2 Ectopic pregnancies Hx # Pregnancies 0 Multiple births # of living children 2 Past Pregnancies Del. Date Name GA/Weeks Outcome Route Bth Weight Gen Labor Lgth Anesthesia Del Locatn Provider FOB 10/31/18 Mir 41 live - full term vacuum 6#5oz Male epidural [facility] Justin Balderas 03/06/21 Mayeie 38 live - full term 5#8oz Female none [facility] Allan Balderas HPI 12 wk ob Details: DOLLY GRAY is a 34 year old who presents for routine OB visit. OB Visit LILIA Calculator Estimated Delivery Date Method Current WG Current Estimate 05/17/25 LMP (Certain) 12w 4d Other Estimates 05/17/25 Ultrasound #1 12w 4d Expected Delivery Route/Plan Labor Preferences- CB/BF classes: [] labor support person: [] labor intervention preferences: [] pain management options preferred: [] cut cord/dad catch: [] : [] PP control planned: [] discussed possible routes of delivery and associated risks: [] special requests: [] Specific Issue/Plans Covid status: [] Flu vaccine: [] Tdap vaccine: [] Rhogam: [] LARC form signed: [] Problem list reviewed and updated with the most current plan of care details and appropriate orders placed. Relevant counseling for the gestational age provided. Continue routine care and follow up unless otherwise noted in visit notes/problem list details Initial Weight: Not Recorded Date -???-???-???-???-?? ?-???-???-???-???-? ??-???-???- EGA Weight BP Urine Prot -???-???-???-???-?? ?-???-???-???-???-? ??-???-???- Glucose FHR FuHt Pres Dilation -???-???-???-???-?? ?-???-???-???-???-? ??-???-???- Effaced St Visit Note 10/10/24 -???-???-???-???-?? ?-???-???-???-???-? ??-???-???- 8w 5d 127 lb 2 oz 115/80 -???-???-???-???-?? ?-???-???-???-???-? ??-???-???- 185 -???-???-???-???-?? ?-???-???-???-???-? ??-???-???- KW- CRL 2.09 cm and cons with dates. Declines NIPT. 11/06/24 -???-???-???-???-?? ?-???-???-???-???-? ??-???-???- 12w 4d 123 lb 9 oz 109/73 -???-???-???-???-?? ?-???-???-???-???-? ??-???-???- 184 -???-???-???-???-?? ?-???-???-???-???-? ??-???-???- KW- no vb/cr amping. feeling much better. US ordered with [facility]. ACOG First Trimester First Trimester: Desire for , Alcohol, Tobacco Cessation, Illicit/Recreationa l Drug/Substance Use, Intimate Partner Violence, Barriers to care, Unstable Housing, Communication Barriers, Environmental/Work Hazards, Anticipated Course of Care, Toxoplasmosis Precations, Use of Any medications, Sexual activity, Exercise, Dental Care, Sauna/Hot tub use, Seat Belt use, Childbirth classes/Hospital facilities, Travel, Indications for Ultrasound and Screening for Aneuploidy; Discussed Second Trimester Seco (more content not included)... Normal [facility] PAP IG HPV APTIMA 16/18,45on 10-13-2024 ADEQ Comment Normal . [facility] Comment on above: Order Comment: Speci men Comment: [id number] Specimen Comment: No. of containers..01 ThinPrep Vial Result Comment: Sati sfactory for evaluation. No endocervical component is identified. Performed By: #### L 7400.0280, M100.2200, L7000.1800 #### [facility] [address] [place], [place], [id number] COMM . Normal . [facility] Comment on above: Order Comment: Speci men Comment: [id number] Specimen Comment: No. of containers..01 ThinPrep Vial Performed By: #### L 7400.0280, M100.2200, L7000.1800 #### [facility] [address] [place], [address] COMMENT Comment Normal . [facility] Comment on above: Order Comment: Speci men Comment: [id number] Specimen Comment: No. of containers..01 ThinPrep Vial Result Comment: This liquid based ThinPrep(R) pap test was screened with the use of an image guided system. Performed By: #### L 7400.0280, M100.2200, L7000.1800 #### [facility] [address] [place], [address] DIAG Comment Normal . [facility] Comment on above: Order Comment: Speci men Comment: [id number] Specimen Comment: No. of containers..01 ThinPrep Vial Result Comment: NEGA TIVE FOR INTRAEPITHELIAL LESION OR MALIGNANCY. Performed By: #### L 7400.0280, M100.2200, L7000.1800 #### [facility] [address] [place], [address] HPV APTIMA, HR Negative Normal Negative [facility] Comment on above: Order Comment: Speci men Comment: [id number] Specimen Comment: No. of containers..01 ThinPrep Vial Result Comment: This nucleic acid amplification test detects fourteen high- risk HPV types (16,18,31,33,35,39,45,51,52,56,58,59,66,68) without differentiation. Performed By: #### L 7400.0280, M100.2200, L7000.1800 #### [facility] [address] [place], [address] HPV Candelaria Rfx Comment Normal . [facility] Comment on above: Order Comment: Speci men Comment: [id number] Specimen Comment: No. of containers..01 ThinPrep Vial Result Comment: Crit eria not met, HPV Genotype not performed. Performed at: - [address] [id number] Pastrycook: Sandra Pena MD, Phone: [phone] Performed at: = - [facility], [place] [id number] Pastrycook: Sandra Pena MD, Phone: [phone] Performed By: #### L 7400.0280, M100.2200, L7000.1800 #### [facility] [address] [place], [address] PAPSMR Comment Normal . [facility] Comment on above: Order Comment: Speci men Comment: [id number] Specimen Comment: No. of containers..01 ThinPrep Vial Result Comment: The Pap smear is a screening test designed to aid in the detection of premalignant and malignant conditions of the uterine cervix. It is not a diagnostic procedure and should not be used as the sole means of detecting cervical cancer. Both false-positive and false-negative reports do occur. Performed By: #### L 7400.0280, M100.2200, L7000.1800 #### [facility] [address] [place], [address] PERFORM Comment Normal . [facility] Comment on above: Order Comment: Speci men Comment: [id number] Specimen Comment: No. of containers..01 ThinPrep Vial Result Comment: Joann Woodward Scoreboard Operator (ASCP) Performed By: #### L 7400.0280, M100.2200, L7000.1800 #### [facility] [address] [place], [address] Chlamydia/GC TEE aptimaon CHLAMY,NUC ACID Negative Normal Negative [facility] Comment on above: Performed By: #### L 7400.0280, M100.2200, L7000.1800 #### [facility] [address] [place], [address] GC BY NUC ACID Negative Normal Negative [facility] Comment on above: Result Comment: Perf ormed at: =G - [facility] [address] [place] [id number] Pastrycook: Sandra Pena MD, Phone: [phone] Performed By: #### L 7400.0280, M100.2200, L7000.1800 #### [facility] [address] [place], [address] Urine Cultureon 10-11-2024 URC Culture exhibits no growth. Normal [facility] Comment on above: Performed By: #### L 7400.0280, M100.2200, L7000.1800 #### [facility] [address] [place], [address] Absolute lymphocyte countOrd ered By: Gail Murphy on 10-10-2024 Lymphocytes Auto (Unsp spec) [#/Vol] 1.93 10*3/uL 0.83-4.51 [facility] Absolute neutrophil countOrd ered By: Gail Murphy on 10-10-2024 Neutrophils (Bld) [#/Vol] 5.3 10*3/uL 2.0-7.7 [facility] Automated lymphocyte count a s percentage of total leukocytesOrdered By: Gail Murphy on 10-10-2024 Lymphocytes/100 WBC Auto (Unsp spec) 24.4 % 19-41 [facility] Basophil percentageOrdered B y: Gail Murphy on 10-10-2024 Basophils/100 WBC (Bld) 0.3 % 0-1 [facility] [place] CBC W/Diff, Automatedon 10-01 0-2024 Absolute Lymph 1.93 X10 3/uL Normal 0.83-4.51 [facility] Comment on above: Performed By: #### B TS, L509.4006, L3890.6006, L509.8002, L100.0100, L3890.6102, L3890.6301 #### [facility] [address] [place], [address] Absolute Neut 5.3 X10 3/uL Normal 2.0-7.7 [facility] Comment on above: Performed By: #### B TS, L509.4006, L3890.6006, L509.8002, L100.0100, L3890.6102, L3890.6301 #### [facility] [address] [place], [address] Basophils/100 WBC (Bld) 0.3 % Normal 0-1 [facility] [place] Comment on above: Performed By: #### B TS, L509.4006, L3890.6006, L509.8002, L100.0100, L3890.6102, L3890.6301 #### [facility] [address] [place], [address] Eosinophils/100 WBC (Bld) 1.4 % Normal 0-5 [facility] Comment on above: Performed By: #### B TS, L509.4006, L3890.6006, L509.8002, L100.0100, L3890.6102, L3890.6301 #### [facility] [address] [place], [address] Erythrocyte distribution width (RBC) [Ratio] 11.9 % Normal 11.6-14.6 [facility] Comment on above: Performed By: #### B TS, L509.4006, L3890.6006, L509.8002, L100.0100, L3890.6102, L3890.6301 #### [facility] [address], [address] Hematocrit (Bld) [Volume fraction] 39.6 % Normal 37-47 [facility] Comment on above: Performed By: #### B TS, L509.4006, L3890.6006, L509.8002, L100.0100, L3890.6102, L3890.6301 #### [facility] [address] [place], [address] Hemoglobin (Bld) [Mass/Vol] 13.8 g/dL Normal 12.0-15.0 [facility] Comment on above: Performed By: #### B TS, L509.4006, L3890.6006, L509.8002, L100.0100, L3890.6102, L3890.6301 #### [facility] [address] [place], [address] IG% 0.600 Normal 0.0-0.9 [facility] Comment on above: Result Comment: IG% - Immature Granulocytes (promyelocytes, myelocytes and metamyelocytes) > 1% indicates that a LEFT SHIFT is Present. Performed By: #### B TS, L509.4006, L3890.6006, L509.8002, L100.0100, L3890.6102, L3890.6301 #### [facility] [address] [place], [address] Lymphocytes/100 WBC (Bld) 24.4 % Normal 19-41 [facility] Comment on above: Performed By: #### B TS, L509.4006, L3890.6006, L509.8002, L100.0100, L3890.6102, L3890.6301 #### [facility] [address] [place], [address] MCH (RBC) [Entitic mass] 29.6 pg Normal 27.0-32.0 [facility] Comment on above: Performed By: #### B TS, L509.4006, L3890.6006, L509.8002, L100.0100, L3890.6102, L3890.6301 #### [facility] [address] [place], [address] MCHC (RBC) [Mass/Vol] 34.8 g/dL Normal 32-36 [facility] Comment on above: Performed By: #### B TS, L509.4006, L3890.6006, L509.8002, L100.0100, L3890.6102, L3890.6301 #### [facility] [address] [place], [address] MCV (RBC) [Entitic vol] 85.0 fL Normal 81-99 [facility] [place] Comment on above: Performed By: #### B TS, L509.4006, L3890.6006, L509.8002, L100.0100, L3890.6102, L3890.6301 #### [facility] [address] [place], [address] Monocytes/100 WBC (Bld) 6.7 % Normal 0-10 [facility] [place] Comment on above: Performed By: #### B TS, L509.4006, L3890.6006, L509.8002, L100.0100, L3890.6102, L3890.6301 #### [facility] [address] [place], [address] Neutrophils/100 WBC (Bld) 66.6 % Normal 47-70 [facility] Comment on above: Performed By: #### B TS, L509.4006, L3890.6006, L509.8002, L100.0100, L3890.6102, L3890.6301 #### [facility] [address] [place], [address] Nucleated RBC (Bld) [#/Vol] 0 10*3/uL Normal 0-5 [facility] Comment on above: Performed By: #### B TS, L509.4006, L3890.6006, L509.8002, L100.0100, L3890.6102, L3890.6301 #### [facility] [address] [place], [address] Platelet mean volume (Bld) [Entitic vol] 8.8 fL Normal 6.2-12.0 [facility] Comment on above: Performed By: #### B TS, L509.4006, L3890.6006, L509.8002, L100.0100, L3890.6102, L3890.6301 #### [facility] [address] [place], [address] Platelets (Bld) [#/Vol] 343 10*3/uL Normal 150-450 [facility] Comment on above: Performed By: #### B TS, L509.4006, L3890.6006, L509.8002, L100.0100, L3890.6102, L3890.6301 #### [facility] [address] [place], [address] RBC (Bld) [#/Vol] 4.66 10*6/uL Normal 4.2-5.4 [facility] Comment on above: Performed By: #### B TS, L509.4006, L3890.6006, L509.8002, L100.0100, L3890.6102, L3890.6301 #### [facility] [address] [place], [address] RDW SD 36.3 fl Normal 35.1-43.9 [facility] Comment on above: Performed By: #### B TS, L509.4006, L3890.6006, L509.8002, L100.0100, L3890.6102, L3890.6301 #### [facility] [address] [place], [address] WBC (Bld) [#/Vol] 7.9 10*3/uL Normal 4.4-11.0 [facility] Comment on above: Performed By: #### B TS, L509.4006, L3890.6006, L509.8002, L100.0100, L3890.6102, L3890.6301 #### [facility] [address] [place], [address] Cervical or vaginal specimen microscopic examination by liquid based cytology (reportOrdered By: Gail Murphy on 10-10-2024 Cytology report Cyto stain.thin prep Doc (Cvx/Vag) Comment . [facility] Comment on above: Criteria not met, HP V Genotype not performed.Performed at: - [facility] [id number] Director: Sandra Pena MD, Phone: [phone] at: = - [facility] [id number] [facility] [place] [id number] Director: Sandra Pena MD, Phone: [phone] Cervical or vagninal specime n microscopic examination by cytology stain (reported asOrdered By: Gail Murphy on 10-10-2024 Cytology report Cyto stain Doc (Cvx/Vag) Comment . [facility] Comment on above: The Pap smear is a s creening test designed to aid in thedetection of premalignant and malignant conditions of theuterine cervix. It is not a diagnostic procedure andshould not be used as the sole means of detecting cervicalcancer. Both false-positive and false-negative reports dooccur. Chlamydia trachomatis rRNA d etection by probe and target amplification methodOrdered By: Gail Murphy on 10-10-2024 C. trachomatis rRNA TEE+probe Ql (Unsp spec) Negative Negative [facility] Detection in cervical specim en of any of human papilloma virus (HPV) 16, 18, 31, 33,Ordered By: Gail Murphy on 10-10-2024 HPV 16+18+31+33+35+39+45+51+5 2+56+58+59+66+68 DNA Probe+sig amp Ql (Cvx) Negative Negative [facility] Comment on above: This nucleic acid am plification test detects fourteen high-risk HPV types (16,18,31,33,35,39,45,51,52,56,58,59,66,68)without differentiation. Eosinophil percentageOrdered By: Gail Murphy on 10-10-2024 Eosinophils/100 WBC (Bld) 1.4 % 0-5 [facility] Erythrocyte distribution wid th ratioOrdered By: Gail Murphy on 10-10-2024 Erythrocyte distribution width (RBC) [Ratio] 11.9 % 11.6-14.6 [facility] Erythrocyte distribution wid th standard deviationOrdered By: Gail Murphy on 10-10-2024 Erythrocyte distribution width (RBC) [Ratio] 36.3 fl 35.1-43.9 [facility] HIVon 10-10-2024 HIV Non-Reactive Normal Nonreactive [facility] Comment on above: Result Comment: Non- Reactive Reactive Repeatedly reactive samples must be confirmed according to CDC recommended confirmatory algorithms. The subresults for either HIVAG or AHIV can be used as an aid in the selection of the confirmation algorithm for reactive samples. Send out specimens with Reactive results to [facility] for confirmation. Order the HIV antibody detection and differentiation: [id number] Performed By: #### B TS, L509.4006, L3890.6006, L509.8002, L100.0100, L3890.6102, L3890.6301 #### [facility] [address] [place], [place], [address] Hematocrit Auto (Bld) [Volum e fraction]Ordered By: Gail Murphy on 10-10-2024 Hematocrit (Bld) [Volume fraction] 39.6 % 37-47 [facility] Hemoglobin measurementOrdere d By: Gail Murphy on 10-10-2024 Hemoglobin (Bld) [Mass/Vol] 13.8 g/dL 12.0-15.0 [facility] Hepatitis C Antibodyon 10-10 Hepatitis C Ab Non-Reactive Normal Nonreactive [facility] Comment on above: Result Comment: Reac tive: Presumptive evidence of antibodies to HCV. Follow CDC recommendations for supplemental testing. Non-Reactive: Antibodies to HCV were not detected; does not exclude the possibility of exposure to HCV Reactive Results are presumptive evidence of antibodies to HCV. Follow CDC recommendations for supplemental testing. Order confirmation testing: HCV Quant by PCR testing - HCVPCR #[id number] Non Reactive: < 0.8 Equivocal: >/= 0.8 to < 1.0 Reactive: >/= 1.0 The CDC requires that a reactive/equivocal HCV antibody result be sent out for confirmation. HCV Quant by PCR testing. Performed By: #### B TS, L509.4006, L3890.6006, L509.8002, L100.0100, L3890.6102, L3890.6301 ####[facility] [address] [place], [place], [id number] Immature granulocytes/100 WB C Auto (Bld)Ordered By: Gail Murphy on 10-10-2024 Immature granulocytes/100 WBC (Bld) 0.600 % 0.0-0.9 [facility] Comment on above: IG% - Immature Granu locytes (promyelocytes, myelocytes and metamyelocytes) > 1% indicates that a LEFT SHIFT is Present. L3890.6102on 10-10-2024 HEP B Surf Ag Non-Reactive Normal Nonreactive [facility] Comment on above: Result Comment: Reac tive: Presumptive evidence of HBV. Repeatedly reactive samples must be confirmed using a neutralization test ([employer] HBsAg Confirmatory Test) Non-Reactive: HBsAg not detected; does not exclude the possibility of exposure to HBV Performed By: #### B TS, L509.4006, L3890.6006, L509.8002, L100.0100, L3890.6102, L3890.6301 ####[facility] [address] [facility] [place], [place], [address] L509.4006on 10-10-2024 Rubella IgG REAC Normal Nonreactive [facility] Comment on above: Result Comment: Anti body Result: Interpretation Non-Reactive: Non-Immune Reactive: Immune The following results were obtained with the [employer] Rubella IgG assay. Results from assays of other manufacturers cannot be used interchangeably. Performed By: #### B TS, L509.4006, L3890.6006, L509.8002, L100.0100, L3890.6102, L3890.6301 ####[facility] [address] [place], [place], [id number] Laboratory - CytologyOrdered By: Gail Murphy on 10-10-2024 Scoreboard Operator Cyto stain Nom (Cvx/Vag) [ID] Comment . [facility] Comment on above: Bg Young (ASCP) Laboratory - Microbiology an d Antimicrobial susceptibilityOrdered By: Gail Murphy on 10-10-2024 HBV surface Ag Ql (S) Non-Reactive Nonreactive [facility] Comment on above: Reactive: Presumptiv e evidence of HBV. Repeatedly reactive samples must be confirmed using a neutralization test ([employer] HBsAg Confirmatory Test)Non-Reactive: HBsAg not detected; does not exclude the possibility of exposure to HBV Laboratory - Miscellaneous t estsOrdered By: Gail Murphy on 10-10-2024 Service comment (Unsp spec) [Interp] . . [facility] MCV (mean corpuscular volume ) determinationOrdered By: Gail Murphy on 10-10-2024 MCV (RBC) [Entitic vol] 85.0 fL 81-99 [facility] [place] Mean corpuscular hemoglobin (MCH) determinationOrdered By: Gail Murphy on 10-10-2024 MCH (RBC) [Entitic mass] 29.6 pg 27.0-32.0 [facility] Mean corpuscular hemoglobin concentration (MCHC) determinationOrdered By: Gail Murphy on 10-10-2024 MCHC (RBC) [Mass/Vol] 34.8 g/dL 32-36 [facility] Mean platelet volume determi nationOrdered By: Gail Murphy on 10-10-2024 Platelet mean volume (Bld) [Entitic vol] 8.8 fL 6.2-12.0 [facility] Monocyte percentageOrdered B y: Gail Murphy on 10-10-2024 Monocytes/100 WBC (Bld) 6.7 % 0-10 [facility] [place] Neisseria gonorrhoeae nuclei c acid detection by amplified probe techniqueOrdered By: Gail Murphy on 10-10-2024 N. gonorrhoeae DNA TEE+probe Ql (Unsp spec) Negative Negative [facility] Comment on above: Performed at: =[address] [id number] Director: Sandra Pena MD, Phone: [phone] Neutrophil percentageOrdered By: Gail Murphy on 10-10-2024 Neutrophils/100 WBC (Bld) 66.6 % 47-70 [facility] No Panel InformationOrdered By: Gail Murphy on 10-10-2024 Pap Smear Specimen Adequacy Comment . [facility] Comment on above: Satisfactory for cade luation. No endocervical component is identified. HIV (1&2) Antibody Non-Reactive Nonreactive [facility] Comment on above: Non-ReactiveReactive Repeatedly reactive samples must be confirmed according to CDC recommended confirmatory algorithms. The subresults for either HIVAG or AHIV can be used as an aid in the selection of the confirmation algorithm for reactive samples.Send out specimens with Reactive results to [facility] for confirmation.Order the HIV antibody detection and differentiation: #[id number] Nucleated red blood cell per centageOrdered By: Gail Murphy on 10-10-2024 Nucleated RBC/100 WBC (Bld) [Ratio] 0 % 0-5 [facility] Child Care Supervisor Office Visit Reporton 10-10-2024 Child Care Supervisor Office Visit Report [facility] [address], [address] [place] [address] OFFICE VISIT Date of Service: 10/10/24 MR#: [id number] Acct: [id number] Name: DOLLY GRAY Rep #: [id number] : 1990 Provider: VASYL Sam ams Age/Sex: 34/F Location: [place] Status: Signed Intake Vital Signs 03/06/21 07:32 10/03/24 12:30 10/10/24 10:33 Height 5 ft 2 in 5 ft 2 in 5 ft 2 in Weight: 126 lb 8 oz 127 lb 2 oz BMI 23.1 23.2 BP 102/60 115/80 Blood Pressure Location Lt brachial Position Sitting Intake Visit Reasons: *NEW* NOB LMP 08/10, LILIA 05/17 Chief Complaint: New OB Picture Frames Inspector Required: No Is patient in pain?: No Allergies No Known Allergies Allergy (Verified 10/10/24 10:31) Medications ???Medication ???Instructions ???Recorded ???Confirmed ???Type vitamins no.121-iron 28 1 ea PO DAILY 10/30/18 0 10/10/24 History mg-folic acid 800 mcg tablet Last Menstrual Period: 08/10/24 Have you fallen in the past year?: No PFSH PFSH Surgical History History of tonsillectomy Social History adopted: No household members: spouse and children housing: house number of children: 2 current occupational status: unemployed current occupation: [employer] pets and animals: Yes (Avoid litterbox) pets and animals: cat(s) and dog(s) history of recent travel: Yes ([place]) out of state: Yes out of country: No sexually active: Yes Smoking Status: Never smoker alcohol intake: never substance use type: does not use well-balanced diet: daily or most days caffeine: Yes Type: coffee Number of servings: 1 eating out: rarely or never during the past year weight has: remained stable what type of physical activity do you participate in: none ben/holiness: Bahai seatbelt use: always do you feel safe at home: Yes additional social history: Andrey History 2 Elective abortions Hx Para 2 Spontaneous abortions Hx # Term Pregnancies 2 Ectopic pregnancies Hx # Pregnancies 0 Multiple births # of living children 2 Past Pregnancies Del. Date Name GA/Weeks Outcome Route Bth Weight Infant Gen Labor Lgth Anesthesia Del Locatn Provider FOB 10/31/18 Mir 41 live - full term vacuum 6#5oz Male epidural [facility] Wee rita Balderas 03/06/21 Aerie 38 live - full term 5#8oz Female none [facility] Weema n Andrey HPI *NEW* NOB LMP 08/10, LILIA 05/17 Details: DOLLY GRAY is a 34 year old who presents for New OB visit. OB Visit LILIA Calculator Estimated Delivery Date Method Current WG Current Estimate 05/17/25 LMP (Certain) 8w 5d Other Estimates 05/17/25 Ultrasound #1 8w 5d Comments: HIV: Urine Culture: Sequential Screen: NIPT Screen: Estimated Due Date: 05/17/25 Expected Delivery Route/Plan Labor Preferences- CB/BF classes: [] labor support person: [] labor intervention preferences: [] pain management options preferred: [] cut cord/dad catch: [] : [] PP control planned: [] discussed possible routes of delivery and associated risks: [] special requests: [] Specific Issue/Plans Covid status: [] Flu vaccine: [] Tdap vaccine: [] Rhogam: [] LARC form signed: [] Problem list reviewed and updated with the most current plan of care details and appropriate orders placed. Relevant counseling for the gestational age provided. Continue routine care and follow up unless otherwise noted in visit notes/problem list details Initial Weight: Not Recorded Date -???-???-???-???-?? ?-???-???-???-???-? ??-???-???- EGA Weight BP Urine Prot -???-???-???-???-?? ?-???-???-???-???-? ??-???-???- Glucose FHR FuHt Pres Dilation -???-???-???-???-?? ?-???-???-???-???-? ??-???-???- Effaced St Visit Note 10/10/24 -???-???-???-???-?? ?-???-???-???-???-? ??-???-???- 8w 5d 127 lb 2 oz 115/80 -???-???-???-???-?? ?-???-???-???-???-? ??-???-???- 185 -???-???-???-???-?? ?-???-???-???-???-? ??-???-???- KW- CRL 2.09 cm and cons with dates. Declines NIPT. 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 Normal [facility] Platelet countOrdered By: Corey Murphy on 10-10-2024 Platelets (Bld) [#/Vol] 343 10*3/uL 150-450 [facility] RBC Auto (Bld) [#/Vol]Ordere d By: Gail Murphy on 10-10-2024 RBC (Bld) [#/Vol] 4.66 10*6/uL 4.2-5.4 [facility] Syphilis Antibodieson 2024 Syphilis Abs Non-Reactive Normal Nonreactive [facility] Comment on above: Performed By: #### B TS, L509.4006, L3890.6006, L509.8002, L100.0100, L3890.6102, L3890.6301 #### [facility] [address] [place] [place], [address] Type AND Screenon 10-10-2024 Ab SCREEN GEL Negative Normal [facility] Comment on above: Order Comment: PN Performed By: #### B TS, L509.4006, L3890.6006, L509.8002, L100.0100, L3890.6102, L3890.6301 ####[facility] [address] [place], [address] Urine cultureOrdered By: Allen Murphy on 10-10-2024 Bacteria identified Cx Nom (U) Culture exhibits no growth. [facility] White blood cell (WBC) count Ordered By: Gail Murphy on 10-10-2024 WBC (Bld) [#/Vol] 7.9 10*3/uL 4.4-11.0 [facility] - Chemistry and C hemistry - challengeOrdered By: Gail Murphy on 10-03-2024 HCG ( test) Ql (U) Positive [facility] Office Visit Reporton 2024 Office Visit Report [facility] [address] [place] [address] OFFICE VISIT Date of Service: 10/10/24 MR#: [id number] Acct: [id number] Patient: DOLLY GRAY Rep #: [id number] : 1990 Provider: VASYL Sam ams Age/Sex: 34/F Location: [place] Status: Signed Intake Vital Signs 03/06/21 07:32 10/03/24 12:30 10/10/24 10:33 Height 5 ft 2 in 5 ft 2 in 5 ft 2 in Weight: 126 lb 8 oz 127 lb 2 oz BMI 23.1 23.2 BP 102/60 115/80 Blood Pressure Location Lt brachial Position Sitting Intake Visit Reasons: *NEW* NOB LMP 08/10, LILIA 05/17 Picture Frames Inspector Required: No Accompanied by: Daughter Is patient in pain?: No Allergies No Known Allergies Allergy (Verified 10/10/24 10:31) Medications ???Medication ???Instructions ???Recorded ???Confirmed ???Type vitamins no.121-iron 28 1 ea PO DAILY 10/30/18 0 10/10/24 History mg-folic acid 800 mcg tablet Is last menstrual period known: Yes Last menstrual period: 08/10/24 Post menopausal: No Patient : Yes Nurse's Note: Pt here for secondary amenorrhea. Office UPT: positive. Vitals WNL. PNOB questions completed. Problem list, allergies, and medications updated. First trimester ACOG education completed. Assessment and Plan Assessment and Plan Orders: Orders CBC W/Diff, Automated 10/10/24 O09.90 - Supervision of high risk , unspecified, unspecified trimester Type Screen 10/10/24 O09.90 - Supervision of high risk , unspecified, unspecified trimester Rubella IgG 10/10/24 O09.90 - Supervision of high risk , unspecified, unspecified trimester Hepatitis C Antibody 10/10/24 O09.90 - Supervision of high risk , unspecified, unspecified trimester Hepatitis B Surface Antigen 10/10/24 O09.90 - Supervision of high risk , unspecified, unspecified trimester Culture, Urine 10/10/24 O09.90 - Supervision of high risk , unspecified, unspecified trimester Syphilis Antibodies 10/10/24 O09.90 - Supervision of high risk , unspecified, unspecified trimester Chlamydia/GC TEE aptima 10/10/24 O09.90 - Supervision of high risk , unspecified, unspecified trimester HIV 10/10/24 O09.90 - Supervision of high risk , unspecified, unspecified trimester POC Urine 10/03/24 N91.1 - Secondary amenorrhea PAP IG HPV APTIMA 16/18,45 10/10/24 Z12.4 - Encounter for screening for malignant neoplasm of cervix 10/21/24 1208 Date Gail Murphy CNM Cosigner Signature: Date (if applicable) CC: Normal [facility] CBC + DIFFon 12-22-2020 BANDS 3 % Normal 0 - 5 [facility] Comment on above: Performed By: #### 2 00772 #### [facility],[address] [place] [address]68 Baso # 0.10 x10EE3/UL Normal 0.00 - 0.10 [facility] Comment on above: Performed By: #### 2 38958 #### [facility],[address] [place] [address] Basophils/100 WBC (Bld) 1.0 % Normal 0.0 - 2.0 [facility] Comment on above: Performed By: #### 2 04862 #### [facility],[address] [place] [address]70 Basophils/100 WBC (Bld) 2.0 % Normal 0.0 - 2.0 [facility] Comment on above: Performed By: #### 2 15509 #### [facility],[address] [place] [address] 24760 CBC + DIFF Normal [facility] Comment on above: Result Comment: CBC- COMPLETE BLOOD COUNT Performed By: #### 2 32736 #### [facility],[address] [place] [address] 71570 CELL COUNT 100 Normal [facility] Comment on above: Performed By: #### 2 07728 #### [facility],[address] [place] [address] EO 1.0 % Normal 0.0 - 4.0 [facility] Comment on above: Performed By: #### 2 68381 #### [facility],[address] [place], [place] [id number] EO # 0.60 x10EE3/UL High 0.00 - 0.50 [facility] Comment on above: Performed By: #### 2 02062 #### [facility],[address] [place] [address] Eosinophils/100 WBC (Bld) 5.3 % Normal 0.0 - 7.0 [facility] Comment on above: Performed By: #### 2 61505 #### [facility],[address] [place] [address] Erythrocyte distribution width (RBC) [Ratio] 13.4 % Normal 12.0 - 15.6 [facility] Comment on above: Performed By: #### 2 74410 #### [facility],[address] [place] [address] Hematocrit (Bld) [Volume fraction] 35.7 % Normal 34.0 - 46.0 [facility] Comment on above: Performed By: #### 2 50065 #### [facility],[address] [place], [place] [id number] Hemoglobin (Bld) [Mass/Vol] 12.4 g/dL Normal 12.0 - 16.0 [facility] Comment on above: Performed By: #### 2 86672 #### [facility],[address] [place] [address]201 Lymph # 2.70 x10EE3/UL Normal 0.80 - 2.80 [facility] Comment on above: Performed By: #### 2 08286 #### [facility],[address] [place], [place] [id number] Lymphocytes/100 WBC (Bld) 22.9 % Normal 20.0 - 45. 0 [facility] Comment on above: Performed By: #### 2 91861 #### [facility],[address] [place], [place] [address] Lymphocytes/100 WBC (Bld) 58 % High 20 - 40 [facility] Comment on above: Performed By: #### 2 81615 #### [facility],[address] [place] [address] MANUAL DIFF SEE BELOW Normal [facility] Comment on above: Performed By: #### 2 17123 #### [facility],[address] [place] [address] MCH (RBC) [Entitic mass] 30 pg Normal 27 - 33 [facility] Comment on above: Performed By: #### 2 08143 #### [facility],[address] [place] [address] MCHC 35 X10 3 Normal 32 - 36 [facility] Comment on above: Performed By: #### 2 78785 #### [facility],[address] [place] [address] MCV (RBC) [Entitic vol] 87 fL Normal 80 - 99 [facility] Comment on above: Performed By: #### 2 19697 #### [facility],[address] [place] [address] META 2 % High 0 - 1 [facility] Comment on above: Performed By: #### 2 06962 #### [facility],[address] [place] [address] [place] # 0.70 x10EE3/UL Normal 0.20 - 1.00 [facility] Comment on above: Performed By: #### 2 81378 #### [facility],[address] [place] [address] MONOS 4 % Normal 0 - 8 [facility] Comment on above: Performed By: #### 2 95797 #### [facility],[address] [place] [address] MONOS % 6.1 % Normal 0.0 - 10.0 [facility] Comment on above: Performed By: #### 2 18378 #### [facility],[address] [place] [address] Morphology Jame (Bld) [Interp] REVIEWED Normal [facility] Comment on above: Result Comment: {CD] Performed By: #### 2 31417 #### [facility],[address] [place] [address] Neut # 7.50 x10EE3/UL High 1.50 - 7.10 [facility] Comment on above: Performed By: #### 2 31620 #### [place] [address] Neutrophils/100 WBC (Bld) 64.7 % Normal 46.0 - 76. 0 [facility] Comment on above: Performed By: #### 2 03252 #### [facility],[address] [place] [address] PLATELET 357 x10EE3/UL Normal 150 - 450 [facility] Comment on above: Performed By: #### 2 35493 #### [facility],[address] [place] [address] Platelet mean volume (Bld) [Entitic vol] 7.1 fL Normal 6.6 - 10.5 [facility] Comment on above: Result Comment: AUTO MATED DIFFERENTIAL Performed By: #### 2 63820 #### [facility],[address] [place] [address] RBC 4.10 x 10EE6/UL Normal 4.10 - 5.30 [facility] Comment on above: Performed By: #### 2 28416 #### [facility],[address] [place] [address] SEGS 30 % Low 50 - 70 [facility] Comment on above: Performed By: #### 2 86288 #### [place] [address] WBC 11.7 x 10EE3/UL High 4.5 - 10.8 [facility] Comment on above: Performed By: #### 2 98217 #### [facility],[address] [place] [address] 86819 GLUCOSE CHALLENGE 50GM 1 TESSA Preston 12-22-2020 Glucose [Mass/Vol] 102 mg/dL Normal 70 - 140 [facility] Comment on above: Performed By: #### 2 31080 #### [facility],[address] [place] [address]3921 GLUCOSE CHALLENGE 50GM 1 HOUR Normal [facility] Comment on above: Result Comment: GLUC OSE CHALLENGE 50 GMS 1 HOUR Performed By: #### 2 39177 #### [facility],[address] [place], [place] [id number] HEPATITIS C AB IA [CCL]on Hepatitis C Ab IA Negative Normal NEGAT [facility] Comment on above: Result Comment: [facility] [address] [place] [address] Kirby Matias III, M.D. [id number] Performed By: #### 2 67355 #### [facility],[address] [place] [address]16 Hepatitis C Ab IAon 09-25-19 Hepatitis C Ab IA NEGAT Normal Negative [facility] Comment on above: Performed By: #### A HCV #### [facility] Routine Lab [address] [place] [address] #### POMER3 #### [facility] [address] [place] [address] JOHN DAY 3 [CCL]on Hepatitis B Surf. Ag Negative Normal NEGAT [facility] Comment on above: Performed By: #### 2 08981 #### [facility],[address] [place] [address] 50585 Reagin Ab RPR Ql (S) Non-Reactive Normal NR [facility] Comment on above: Performed By: #### 2 75025 #### [facility],[address] [place] [address] 56243 Rubella IgG Ab 1.91 Indexlue Normal [facility] Comment on above: Result Comment: Inde x values are interpreted as follows: Negative specimens <0.90 Equivocol specimens 0.90 to 0.99 Positive specimens >0.99 The magnitude of the measured result is not indicative of the amount of antibody present. [facility] [address] [place] [address] Kirby Matias III, M.D. [id number] Performed By: #### 2 85714 #### [facility],[address] [place], [place] [address] Rubella IgG Ab, Qual Positive Abnormal NEGAT [facility] Comment on above: Result Comment: Samp le is considered positive for IgG antibodies to rubella virus. A positive result indicates previous exposure to Rubella virus or vaccination. Performed By: #### 2 80589 #### [facility],[address] [place] [address] 09-24-2020 Rubella IgG Ab 1.91 Index Value Normal [facility] Comment on above: Performed By: #### A HCV #### [facility] Routine Lab [address] [place] [phone] #### POMER3 #### [facility] [address] [place] [address] Rubella IgG Ab, Qual Positive Abnormal Negative [facility] Comment on above: Performed By: #### A HCV #### [facility] Routine Lab [address] [place] [phone] #### POMER3 #### [facility] [address] [place] [phone] Hepatitis B Surf. Ag NEGAT Normal Negative [facility] Comment on above: Performed By: #### A HCV #### [facility] Routine Lab [address] [place] [place] [address] #### POMER3 #### [facility] [address] [place] [address] Reagin Ab RPR Ql (S) NR Normal Non Reactive Cl [facility] Comment on above: Performed By: #### A HCV #### [facility] Routine Lab [address] [place] [address] #### POMER3 #### [facility] [address] [place] [address] BB TYPE & SCREENon 1 ABO O Normal [facility] Comment on above: Performed By: #### 2 08971 #### [facility],[address] [place] [address] ANTIBODY SCR Negative Normal [facility] Comment on above: Performed By: #### 2 64985 #### [facility],[address] [place] [address] BB TYPE & SCREEN Normal [facility] Comment on above: Result Comment: TYPE , Rh, AND SCREEN Performed By: #### 2 86246 #### [facility],[address] [place] [address] Rh Nom (Bld) Positive Normal [facility] Comment on above: Performed By: #### 2 82172 #### [facility],[address] [place] [address] CBC + DIFFon 09-22-2020 Baso # 0.00 x10EE3/UL Normal 0.00 - 0.10 [facility] Comment on above: Performed By: #### 2 27780 #### [facility],[address],[place] [address] Basophils/100 WBC (Bld) 0.5 % Normal 0.0 - 2.0 [facility] Comment on above: Performed By: #### 2 56020 #### [facility],[address] [place] [address] CBC + DIFF Normal [facility] Comment on above: Result Comment: CBC- COMPLETE BLOOD COUNT Performed By: #### 2 63445 #### [facility],[address] [place] [address] EO # 0.10 x10EE3/UL Normal 0.00 - 0.50 [facility] Comment on above: Performed By: #### 2 30421 #### [facility],[address] [place] [address] Eosinophils/100 WBC (Bld) 0.8 % Normal 0.0 - 7.0 [facility] Comment on above: Performed By: #### 2 52986 #### [facility],[address] [place] [address] Erythrocyte distribution width (RBC) [Ratio] 12.4 % Normal 12.0 - 15.6 [facility] Comment on above: Performed By: #### 2 96766 #### [facility],[address] [place] [address] Hematocrit (Bld) [Volume fraction] 42.0 % Normal 34.0 - 46.0 [facility] Comment on above: Performed By: #### 2 48986 #### [facility],[address] [place] [address] Hemoglobin (Bld) [Mass/Vol] 14.8 g/dL Normal 12.0 - 16.0 [facility] Comment on above: Performed By: #### 2 87495 #### [facility],[address] [place] [address] Lymph # 2.10 x10EE3/UL Normal 0.80 - 2.80 [facility] Comment on above: Performed By: #### 2 54324 #### [facility],[address] [place] [address] Lymphocytes/100 WBC (Bld) 22.6 % Normal 20.0 - 45. 0 [facility] Comment on above: Performed By: #### 2 54222 #### [facility],[address] [place] [address] MANUAL DIFF N/A Normal [facility] Comment on above: Performed By: #### 2 45068 #### [facility],[address] [place] [address] MCH (RBC) [Entitic mass] 30 pg Normal 27 - 33 [facility] Comment on above: Performed By: #### 2 88315 #### [facility],[address] [place] [address] MCHC 35 X10 3 Normal 32 - 36 [facility] Comment on above: Performed By: #### 2 52747 #### [facility],[address] [place] [address] MCV (RBC) [Entitic vol] 85 fL Normal 80 - 99 [facility] Comment on above: Performed By: #### 2 67185 #### [facility],[address] [place] [address] [place] # 0.50 x10EE3/UL Normal 0.20 - 1.00 [facility] Comment on above: Performed By: #### 2 80600 #### [facility],[address] [place] [address] MONOS % 4.9 % Normal 0.0 - 10.0 [facility] Comment on above: Performed By: #### 2 82332 #### [facility],[address] [place] [address] Morphology Jame (Bld) [Interp] N/A Normal [facility] Comment on above: Result Comment: {CD] Performed By: #### 2 [id number] #### [facility],[address] [place] [address] 03417 Neut # 6.70 x10EE3/UL Normal 1.50 - 7.10 [facility] Comment on above: Performed By: #### 2 [id number] #### [facility],[address] [place] [address] 72338 Neutrophils/100 WBC (Bld) 71.2 % Normal 46.0 - 76. 0 [facility] Comment on above: Performed By: #### 2 [id number] #### [facility],[address] [place] [address] 45213 PLATELET 348 x10EE3/UL Normal 150 - 450 [facility] Comment on above: Performed By: #### 2 [id number] #### [facility],[address] [place] [address] 22688 Platelet mean volume (Bld) [Entitic vol] 7.3 fL Normal 6.6 - 10.5 [facility] Comment on above: Result Comment: AUTO MATED DIFFERENTIAL Performed By: #### 2 [id number] #### [facility],[address] [place] [address] 56429 RBC 4.95 x 10EE6/UL Normal 4.10 - 5.30 [facility] Comment on above: Performed By: #### 2 [id number] #### [facility],[address] [place] [address] 45136 WBC 9.4 x 10EE3/UL Normal 4.5 - 10.8 [facility] Comment on above: Performed By: #### 2 [id number] #### [facility],[address] [place] [address] 75947 TSHon 09-22-2020 TSH Qn 0.56 m[IU]/L Normal 0.35 - 3.74 [facility] Comment on above: Performed By: #### 2 [id number] #### [facility],[address] [place] [address] 42600 URINALYSISon 09-22-2020 Bilirubin Ql (U) Negative Normal NORMAL: NEGATIVE [facility] Comment on above: Performed By: #### 2 [id number] #### [facility],[address] [place] [address] 14413 Clarity (U) clear Normal NORMAL: CLEAR [facility] Comment on above: Performed By: #### 2 [id number] #### [facility],[address] [place] [address] 07022 Color (U) p.yel Normal NORMAL: YELLOW [facility] Comment on above: Performed By: #### 2 [id number] #### [facility],[address] [place] [address] 55327 Glucose Ql (U) NORM Normal NORMAL: NORMAL [facility] Comment on above: Performed By: #### 2 [id number] #### [facility],[address] [place] [address] 71731 Hemoglobin Ql (U) Negative Normal NORMAL: NEGATIVE [facility] Comment on above: Performed By: #### 2 [id number] #### [facility],[address] [place] [address] 47422 Ketone Negative Normal NORMAL: NEGATIVE [facility] Comment on above: Performed By: #### 2 72973 #### [facility],[address] [place] [address] 55105 Leukocytes Negative Normal NORMAL: NEGATIVE [facility] Comment on above: Performed By: #### 2 [id number] #### [facility],[address] [place] [address] 10475 Nitrite Ql (U) Negative Normal NORMAL: NEGATIVE [facility] Comment on above: Performed By: #### 2 [id number] #### [facility],[address] [place] [address] 08541 pH (U) 6 [pH] Normal NORMAL: 5.0-8.0 [facility] Comment on above: Performed By: #### 2 [id number] #### [facility],[address] [place] [address] 22051 Protein Ql (U) Negative Normal NORMAL: NEGATIVE [facility] Comment on above: Performed By: #### 2 42612 #### [facility],[address] [place] [address] Sp Eldridge 1.010 Normal NORMAL: 1.010-1.030 [facility] Comment on above: Performed By: #### 2 45424 #### [facility],[address] [place] [address] Specimen Type Clean catch Normal [facility] Comment on above: Performed By: #### 2 22462 #### [facility],[address] [place] [address] Urinalysis dipstick W Reflex Microscopic panel (U) NOT INDICATED Normal [facility] Comment on above: Performed By: #### 2 [id number] #### [facility],[address] [place] [address] Urobilinog NORM Normal NORMAL: NORMAL [facility] Comment on above: Performed By: #### 2 [id number] #### [facility],[address] [place], [place] [id number] Laboratory - Chemistry and C hemistry - challengeon 12-16-2016 Prolactin [Mass/Vol] 23.2 ng/mL Normal 2.0 - 3 0.0 ng/mL [facility], [facility].; [facility] Vital Signs Date Time Vital Sign Value Performing Clinician Luma guadarrama 12-30-2024 11:16 Body height 157.48 cm No Primary Care Physician [facility] 12-30-2024 11:16040 Body mass index (BMI) [Ratio] 23.8 kg/m2 No Primary Care Physician [facility] 12-30-2024 11:16 Body weight 59.08 kg No Primary Care Physician [facility] 12-30-2024 11:16040 Diastolic blood pressure 71 mm[Hg] No Primary Care Physician [facility] 12-30-2024 11:16040 Systolic blood pressure 107 mm[Hg] No Primary Care Physician [facility] 12-03-2024 09:53-0400 Body height 157.48 cm No Primary Care Physician [facility] 12-03-2024 09:47-0400 Body mass index (BMI) [Ratio] 23.3 kg/m2 No Primary Care Physician [facility] 12-03-2024 09:47-0400 Body weight 57.86 kg No Primary Care Physician [facility] 12-03-2024 09:47-0400 Diastolic blood pressure 68 mm[Hg] No Primary Care Physician [facility] 12-03-2024 09:47-0400 Systolic blood pressure 102 mm[Hg] No Primary Care Physician [facility] 11-06-2024 14:41-0400 Body height 157.48 cm No Primary Care Physician [facility] 11-06-2024 14:41-0400 Body mass index (BMI) [Ratio] 22.6 kg/m2 No Primary Care Physician [facility] 11-06-2024 14:41-0400 Body weight 56.04 kg No Primary Care Physician [facility] 11-06-2024 14:41-0400 Diastolic blood pressure 73 mm[Hg] No Primary Care Physician [facility] 11-06-2024 14:41-0400 Systolic blood pressure 109 mm[Hg] No Primary Care Physician [facility] 10-10-2024 10:33-0400 Body height 157.48 cm No Primary Care Physician [facility] 10-10-2024 10:33-0400 Body mass index (BMI) [Ratio] 23.2 kg/m2 No Primary Care Physician [facility] 10-10-2024 10:33-0400 Body weight 57.66 kg No Primary Care Physician [facility] 10-10-2024 10:33-0400 Diastolic blood pressure 80 mm[Hg] No Primary Care Physician [facility] 10-10-2024 10:33-0400 Systolic blood pressure 115 mm[Hg] No Primary Care Physician [facility] 09-06-2023 10:37-0400 Body height 157.48 cm ANGELICA MORRISON RN [facility], [facility].; [facility] 09-06-2023 10:37-0400 Body mass index (BMI) [Ratio] 22.86 kg/m2 ANGELICA MORRISON RN [facility].; [facility]. 09-06-2023 10:37-0400 Body surface area Derived from formula 1.57 m2 ANGELICA MORRISON RN [facility].; [facility]. 09-06-2023 10:37-0400 Body weight 56.7 kg ANGELICA MORRISON RN [facility].; [facility]. 09-06-2023 10:37-0400 Diastolic blood pressure 62 mm[Hg] ANGELICA MORRISON RN [facility].; [facility]. Comment on above: Patient Position: Sitting; Cuff Location : Left Arm; Cuff Size: Standard 09-06-2023 10:37-0400 Heart rate 80 /min ANGELICA MORRISON RN [facility] Comment on above: Pattern: Regular 09-06-2023 10:37-0400 Systolic blood pressure 95 mm[Hg] ANGELICA MORRISON RN [facility].; [facility] Comment on above: Patient Position: Sitting; Cuff Location : Left Arm; Cuff Size: Standard 08-21-2023 14:38-0400 Body height 157.48 cm Maurizio JUSTICE MD Work Phone: [facility].; [employer] [facility] 08-21-2023 14:38-0400 Body mass index (BMI) [Ratio] 22.68 kg/m2 Maurizio JUSTICE MD Work Phone: [facility].; [facility]. 08-21-2023 14:38-0400 Body surface area Derived from formula 1.56 m2 Maurizio JUSTICE MD Work Phone: [facility].; [employer] [facility] [employer] [facility] 08-21-2023 14:38-0400 Body weight 56.25 kg Maurizio JUSTICE MD Work Phone: [facility].; [employer] [facility] [employer] [facility] 08-21-2023 14:38-0400 Diastolic blood pressure 57 mm[Hg] Maurizio JUSTICE MD Work Phone: [facility].; [employer] [facility] [employer] [facility] Comment on above: Patient Position: Sitting; Cuff Location : Left Arm; Cuff Size: Standard 08-21-2023 14:38-0400 Heart rate 88 /min Maurizio JUSTICE MD Work Phone: [facility] [employer] [facility]; [employer] [employer] [facility] Comment on above: Pattern: Regular 08-21-2023 14:38-0400 Systolic blood pressure 95 mm[Hg] Maurizio JUSTICE MD Work Phone: [facility] [employer] [facility].; [facility] [employer] [facility]. Comment on above: Patient Position: Sitting; Cuff Location : Left Arm; Cuff Size: Standard 10-28-2021 10:35-0400 Body height 157.48 cm Pippa Rubio RN [facility].; [facility]. 10-28-2021 10:35-0400 Body mass index (BMI) [Ratio] 22.31 kg/m2 Pippa Rubio RN [facility].; [facility]. 10-28-2021 10:35-0400 Body surface area Derived from formula 1.55 m2 Pippa Rubio RN [facility], [facility].; [facility]. 10-28-2021 10:35-0400 Body weight 55.34 kg Pippa Rubio RN [facility], [facility].; [facility]. 10-28-2021 10:35-0400 Diastolic blood pressure 58 mm[Hg] Pippa Rubio RN [facility], [facility].; [employer] [facility] [employer] [facility] Comment on above: Patient Position: Sitting; Cuff Location : Left Arm; Cuff Size: Large 10-28-2021 10:35-0400 Heart rate 73 /min Pippa Rubio RN [facility], [facility] [employer] [facility] [employer] [facility] Comment on above: Pattern: Regular 10-28-2021 10:35-0400 Systolic blood pressure 90 mm[Hg] Pippa Rubio RN [facility] [employer] [facility] [employer] [facility] [employer] [facility] Comment on above: Patient Position: Sitting; Cuff Location : Left Arm; Cuff Size: Large 09-15-2016 15:19-0400 Body height 157.48 cm Pippa Rubio RN [facility], [facility] [employer] [facility] [employer] [facility] 09-15-2016 15:19-0400 Body mass index (BMI) [Ratio] 21.95 kg/m2 Pippa Rubio RN [facility] [employer] [facility] 09-15-2016 15:19-0400 Body surface area Derived from formula 1.54 m2 Pippa Rubio RN [facility] [employer] [facility].; [employer] [facility] 09-15-2016 15:19-0400 Body weight 54.43 kg Pippa Rubio RN [facility], [facility].; [employer] [facility] [employer] [facility] 09-15-2016 15:19-0400 Diastolic blood pressure 74 mm[Hg] Pippa Rubio RN [facility] [employer] [facility] [employer] [facility] [employer] [facility] Comment on above: Patient Position: Sitting; Cuff Location : Left Arm; Cuff Size: Standard 09-15-2016 15:19-0400 Heart rate 95 /min Pippa Rubio RN [facility] [employer] [facility] [employer] [facility] [employer] [employer] Comment on above: Pattern: Regular 09-15-2016 15:19-0400 Systolic blood pressure 116 mm[Hg] Pippa Rubio RN [facility] [employer] [facility] [employer] [facility] [employer] [facility] Comment on above: Patient Position: Sitting; Cuff Location : Left Arm; Cuff Size: Standard 08-05-2014 13:37-0400 Body height 157.48 cm Mary Olmos RN [facility], [facility].; [facility] 08-05-2014 13:37-0400 Body mass index (BMI) [Ratio] 20.12 kg/m2 Mary Olmos RN [facility], [facility] 08-05-2014 13:37-0400 Body surface area Derived from formula 1.48 m2 Mary Olmos RN [facility], [facility].; [facility] 08-05-2014 13:37-0400 Body weight 49.9 kg Mary Olmos RN [facility], [employer] [facility] 08-05-2014 13:37-0400 Diastolic blood pressure 77 mm[Hg] Mary Olmos RN [facility], [facility] [employer] [facility] Comment on above: Patient Position: Sitting; Cuff Location : Left Arm; Cuff Size: Large 08-05-2014 13:37-0400 Heart rate 118 /min Mary Olmos RN [facility] [employer] [facility], [employer] [facility] [employer] [facility] Comment on above: Pattern: Regular 08-05-2014 13:37-0400 Systolic blood pressure 135 mm[Hg] Mary Olmos RN [facility] [employer] [facility].; [facility] [employer] [facility] Comment on above: Patient Position: Sitting; Cuff Location : Left Arm; Cuff Size: Large 07-12-2010 14:03-0400 Body height 157.48 cm Maurizio JUSTICE MD Work Phone: [facility] [employer] [facility].; [employer] [facility] [employer] [facility] 07-12-2010 14:03-0400 Body mass index (BMI) [Percentile] Per age and sex 13 % Maurizio JUSTICE MD Work Phone: [facility] [employer] [facility].; [employer] [facility] [employer] [facility] 07-12-2010 14:03-0400 Body mass index (BMI) [Ratio] 18.47 kg/m2 Maurizio JUSTICE MD Work Phone: [employer]. 07-12-2010 14:03-0400 Body surface area Derived from formula 1.43 m2 Maurizio JUSTICE MD Work Phone: [employer].; [employer]. 07-12-2010 14:03-0400 Body temperature 98.3 [degF] Maurizio JUSTICE MD Work Phone: [employer].; [employer]. Comment on above: Method: Oral 07-12-2010 14:03-0400 Body weight 45.81 kg Maurizio JUSTICE MD Work Phone: [employer].; [employer]. 07-12-2010 14:03-0400 Diastolic blood pressure 68 mm[Hg] Maurizio JUSTICE MD Work Phone: [employer].; [employer]. Comment on above: Patient Position: Sitting; Cuff Location : Left Arm; Cuff Size: Large 07-12-2010 14:03-0400 Heart rate 96 /min Maurizio JUSTICE MD Work Phone: [employer]; [employer]. Comment on above: Pattern: Regular 07-12-2010 14:03-0400 Systolic blood pressure 106 mm[Hg] Maurizio JUSTICE MD Work Phone: [employer].; [employer]. Comment on above: Patient Position: Sitting; Cuff Location : Left Arm; Cuff Size: Large Encounters Encounter Date Encounter Type Care Provider Facility Start: 05-17-2025 ambulatory No Primary Car e Physician Facility:[facility] Start: 02-24-2025 ambulatory No Primary Car e Physician Facility:[facility] Start: 01-27-2025 End: 01-27-2025 ambulatory No Primary Care Physician Facility:[facility] Start: 12-30-2024 End: 12-30-2024 Patient encounter procedure Gail Murphy CN -Ultrasound [facility] Work Phone: Start: 12-30-2024 End: 12-30-2024 ambulatory No Primary Care Physician -[facility] Start: 12-30-2024 End: 12-30-2024 ambulatory No Primary Care Physician Facility:[facility] Start: 12-03-2024 End: 12-03-2024 Patient encounter procedure Marlena SHEPHERD -[facility] Work Phone: Start: 12-03-2024 End: 12-03-2024 ambulatory No Primary Care Physician -[facility] Start: 11-06-2024 End: 11-06-2024 Patient encounter procedure Gail WYATT -[facility] Work Phone: Start: 11-06-2024 End: 11-06-2024 ambulatory No Primary Care Physician -[facility] Start: 10-10-2024 End: 10-10-2024 Patient encounter procedure Gail WYATT -[facility] Work Phone: Start: 10-10-2024 End: 10-10-2024 ambulatory No Primary Care Physician -[facility] Start: 10-10-2024 End: 10-10-2024 ambulatory Gail Murphy Facility:[facility] Start: 10-03-2024 End: 10-03-2024 Patient encounter procedure Gail WYATT -[facility] Work Phone: Start: 10-03-2024 End: 10-03-2024 ambulatory No Primary Care Physician [facility] Start: 09-06-2023 End: 09-06-2023 Admission to same day surgery center Maurizio JUSTICE MD Work Phone: [facility] Start: 08-21-2023 End: 08-21-2023 Office outpatient visit 15 minutes Maurizio JUSTICE MD Work Phone: [facility] Start: 10-28-2021 End: 10-28-2021 Office outpatient visit 10 minutes Maurizio JUSTICE MD Work Phone: [employer]. Start: 12-22-2020 End: 12-22-[address] [facility] Start: 09-22-2020 End: 09-22-[address] [facility] Start: 05-15-2019 End: 05-15-2019 Lab Only Maurizio JUSTICE MD Work Phone: [employer]. Start: 12-16-2016 End: 12-16-2016 Lab Only Maurizio JUSTICE MD Work Phone: [employer]. Start: 09-15-2016 End: 09-15-2016 Office outpatient visit 15 minutes Maurizio JUSTICE MD Work Phone: [employer]. Start: 08-05-2014 End: 08-05-2014 Medical examinations/reports status Maurizio JUSTICE MD Work Phone: [employer].; [employer]. Start: 08-05-2014 End: 08-05-2014 Office outpatient visit 40 minutes Maurizio JUSTICE MD Work Phone: [employer]. Start: 07-12-2010 End: 07-12-2010 Patient encounter procedure Maurizio JUSTICE MD Work Phone: [employer]. Start: 07-12-2010 End: 07-12-2010 Historical Summary Maurizio JUSTICE MD Work Phone: [employer] Procedures Date Procedure Procedure Detail Performing Clinician Start: 12-30-2024 Ultrasonography in f irst trimester No Primary Care Physician Start: 10-10-2024 Liquid based cervica l cytology screening No Primary Care Physician Comment on above: NEGATIVE FOR INTRAEP ITHELIAL LESION OR MALIGNANCY. This liquid based Th inPrep(R) pap test was screened withthe use of an image guided system. Start: 10-10-2024 Urine culture No Primar y Care Physician Start: 10-10-2024 Hepatitis C antibody measurement No Primary Care Physician Comment on above: Reactive: Presumptiv e evidence of antibodies to HCV. Follow CDC recommendations for supplemental testing.Non-Reactive: Antibodies to HCV were not detected; does not exclude the possibility of exposure to HCVReactive Results are presumptive evidence of antibodies to HCV. Follow CDC recommendations for supplemental testing.Order confirmation testing: HCV Quant by PCR testing - HCVPCR #[id number] Non Reactive: < 0.8 Equivocal: >/= 0.8 to < 1.0 Reactive: >/= 1.0The CDC requires that a reactive/equivocal HCV antibody result be sent out for confirmation. HCV Quant by PCR testing. Start: 10-10-2024 Rubella IgG measurement No Primary Care Physician Comment on above: Antibody Result: Int erpretationNon-Reactive: Non- ImmuneReactive: ImmuneThe following results were obtained with the [employer] Rubella IgG assay. Results from assays of other manufacturers cannot be used interchangeably. Start: 10-10-2024 Serologic test for syphilis No Primary Care Physician Start: 09-06-2023 End: 09-06-2023 Exc b9 lesion mrgn xcp sk tg s/n/h/f/g 1.1-2.0cm LUCIANO CARSONP-C Work Phone: Start: 08-21-2023 End: 08-21-2023 Dischrg meds reconciled w/current med list LUCIANO CARSONP-C Work Phone: Start: 10-28-2021 End: 10-28-2021 Dischrg meds reconciled w/current med list ALDEN MASTERS MD Work Phone: Start: 09-22-2020 Urinalysis URSULA Marvin Comment on above: Result Comment: URIN ALYSIS Performed By: #### [id number] #### [facility],[address] [place] [address] Adenoid excision R NICKIE HUSTON MD Work Phone: Comment on above: Age 12 Tonsillectomy Maurizio JUSTICE MD Work Phone: Comment on above: Age 12 Plan of Treatment Date Care Activity Detail Author Start: 10-10-2024 CBC W Auto Differential panel - Blood [facility] Start: 10-10-2024 Hepatitis C antibody measurement [facility] Start: 10-10-2024 Rubella IgG measurement [facility] Start: 10-10-2024 Serologic test for syphilis [facility] Start: 10-10-2024 [facility] Start: 09-06-2023 Patient encounter procedure Medical; ACUTE ILLNESS - CYST ON HEAD [facility]AL [facility] Start: 06-Sep-2023 11:00-04:00 DYLAN ABDULLAHI Appointment Request [facility] Start: 09-15-2016 Patient Education OTITIS MEDIA INSTRUCTIONS Indication: Right acute otitis media Start: 15-Sep-2016 Instruction Type: Patient Education [email or web address] Chlamydia deoxyribon ucleic acid detection [facility] Erythrocyte mean corpuscular volume determination [facility] Hematocrit [Volume Fraction] of Blood [facility] Hemoglobin [Mass/vol ume] in Blood [facility] Hepatitis B virus pete rface Ag [Presence] in Serum [facility] Leukocytes [#/volume ] in Blood [facility] Liquid based cervica l cytology screening [facility] Mean corpuscular hem oglobin concentration determination [facility] Mean corpuscular hem oglobin determination [facility] Neutrophil count [facility] Neutrophil percent differential count [facility] Platelets [#/volume] in Blood [facility] Red blood cell count [facility] Red cell distributio n width determination [facility] Ultrasonography in f irst trimester [facility] Immunizations Immunization Date Immunization Notes Care Provider Fa cility 05-15-2019 *IMMUNIZATION ADMIN ([id number]) Maurizio JUSTICE MD Work Phone: [facility] [facility].; [facility] 05-15-2019 tetanus toxoid, redu manuel diphtheria toxoid, and acellular pertussis vaccine, adsorbed Maurizio JUSTICE MD Work Phone: [facility]; [facility] [employer] [facility]. Comment on above: Site: Right DeltoidV IS Given: * Tdap (Tetanus, Diphtheria, Pertussis) (05/27/14) 05-15-2019 varicella virus vaccine Maurizio JUSTICE MD Work Phone: [facility] [employer] [facility]; [facility] [employer] [facility]. Comment on above: Site: Left ArmVIS Gi luis felipe: * Varicella (Chickenpox) (11/15/2018) 04-10-2019 varicella virus vaccine Maurizio JUSTICE MD Work Phone: [facility] [employer] [facility]; [facility] [employer] [facility]. Comment on above: Health Dept 05-06-1997 diphtheria, tetanus toxoids and acellular pertussis vaccine Maurizio JUSTICE MD Work Phone: [facility] [employer] [facility]; [facility] [employer] [facility] 05-06-1997 measles, mumps and rubella virus vaccine Maurizio JUSTICE MD Work Phone: [facility] [employer] [facility]; [facility] [employer] [facility]. 05-06-1997 poliovirus vaccine, inactivated Maurizio JUSTICE MD Work Phone: [facility] [employer] [facility].; [facility] 03-08-1994 diphtheria, tetanus toxoids and acellular pertussis vaccine Maurizio JUSTICE MD Work Phone: [facility] [employer] [facility].; [facility] 03-08-1994 measles, mumps and rubella virus vaccine Maurizio JUSTICE MD Work Phone: [facility] [employer] [facility].; [facility] 03-08-1994 poliovirus vaccine, inactivated Maurizio JUSTICE MD Work Phone: [facility] [employer] [facility]; [facility] 03-12-1993 diphtheria, tetanus toxoids and acellular pertussis vaccine Maurizio JUSTICE MD Work Phone: [facility].; [facility] 1990 diphtheria, tetanus toxoids and acellular pertussis vaccine Maurizio JUSTICE MD Work Phone: [facility].; [facility] 1992 poliovirus vaccine, inactivated Maurizio JUSTICE MD Work Phone: [facility].; [facility] 1992 diphtheria, tetanus toxoids and acellular pertussis vaccine Maurizio JUSTICE MD Work Phone: [facility].; [facility] 1992 poliovirus vaccine, inactivated Maurizio JUSTICE MD Work Phone: [facility].; [facility] Payers Date Payer Category Payer Self-pay 2020 Unknown [id number] 1990 Unknown [id number] 2.16.84 [id number] 1990 Unknown [id number] 2.16.84 [id number] Unknown 90 Unknown [id number] 2.16.8 [id number] Unknown [id number] 2.16.8 [id number] Unknown [id number] 2.16.8 [id number] Unknown [id number] 2.16.8 [id number] Unknown [id number] 2.16.8 [id number] Unknown [id number] 2.16.8 [id number] Unknown [id number] 2.16.8 [id number] Unknown [id number] 2.16.8 [id number] Unknown [id number] 2.16.8 [id number] Unknown [id number] 2.16.8 [id number] Social History Date Type Detail Facility Alcohol Use: Alcohol Use: ; N o Alcohol Use. [facility]; [facility] Current Work/Study Status Current Work/Study Status [facility]; [facility] Tobacco use: Tobacco use: ; N ever smoker. [facility]; [facility] Start: 1990 Female [facility] Start: 10-03-2024 Never smoked tobacco [facility] Sex Female [facility] Clinical Notes 10-10-2024 to 12-30-2024 Note Date & Type Note Facility 12-30-2024 Progress note [facility] 12-03-2024 Progress note [facility] 11-06-2024 Progress note [facility] 11-06-2024 Progress note Note Date/Time November 06, 2024 2:58pm [facility] [address], [address] [place] [address] OFFICE VISIT Date of Service: 11/06/24 MR#: [id number] Acct: [id number] Name: ISAACIVETDOLLY R Rep #: [id number] : 1990 Provider: VASYL Murphy Age/Sex: 34/F Location: [place] Status: Signed Intake Vital Signs 10/10/24 10:33 11/06/24 14:41 Height 5 ft 2 in 5 ft 2 in Weight: 123 lb 9 oz BMI 22.6 BP 109/73 Intake Visit Reasons: 12 wk ob Picture Frames Inspector Required: No Is patient in pain?: No Feel stressed/tense/nervous/anxious/difficulty sleeping: not at all Allergies No Known Allergies Allergy (Verified 11/06/24 14:39) Medications ?Medication ?Instructions ?Recorded ?Confirmed ?Type vitamins no.121-iron 28 1 ea PO DAILY pregnan cy 10/30/18 11/06/24 History mg-folic acid 800 mcg tablet Last Menstrual Period: 08/10/24 Zika: Zika virus screening: Negative : No PFSH PFSH Surgical History History of tonsillectomy Social History adopted: No household members: spouse and children housing: house number of children: 2 current occupational status: unemployed current occupation: [employer] pets and animals: Yes (Avoid litterbox) pets and animals: cat(s) and dog(s) history of recent travel: Yes (July) out of state: Yes out of country: No sexually active: Yes Smoking Status: Never smoker alcohol intake: never substance use type: does not use well-balanced diet: daily or most days caffeine: Yes Type: coffee Number of servings: 1 eating out: rarely or never during the past year weight has: remained stable what type of physical activity do you participate in: none ben/holiness: Bahai seatbelt use: always do you feel safe at home: Yes additional social history: Andrey History 2 Elective abortions Hx Para 2 Spontaneous abortions Hx # Term Pregnancies 2 Ectopic pregnancies Hx # Pregnancies 0 Multiple births # of living children 2 Past Pregnancies Del. Date Name GA/Weeks Outcome Route Bth Weight Gen Labor Lgth Anesthesia Del Locatn Provider FOB 10/31/18 Mir 41 live - full term vacuum 6#5oz Male epidu ral [facility] Nathalie Balderas 03/06/21 Aerie 38 live - full term 5#8oz Female none [facility] Nathalie Balderas HPI 12 wk ob Details: DOLLY GRAY is a 34 year old who presents for routine OB visit. OB Visit LILIA Calculator Estimated Delivery Date Method Current WG Current Estimate 05/17/25 LMP (Certain) 12w 4d Other Estimates 05/17/25 Ultrasound #1 12w 4d Expected Delivery Route/Plan Labor Preferences- CB/BF classes: [] labor support person: [] labor intervention preferences: [] pain management options preferred: [] cut cord/dad catch: [] : [] PP control planned: [] discussed possible routes of delivery and associated risks: [] special requests: [] Specific Issue/Plans Covid status: [] Flu vaccine: [] Tdap vaccine: [] Rhogam: [] LARC form signed: [] Problem list reviewed and updated with the most current plan of care details and appropriate orders placed. Relevant counseling for the gestational age provided. Continue routine care and follow up unless otherwise noted in visit notes/problem list details Initial Weight: Not Recorded Date -?-?-?-?-?-?-?-?-?-?-?-?- EGA Weight BP Urine Prot -?-?-?-?-?-?-?-?-?-?-?-?- Glucose FHR FuHt Pres Dilation -?-?-?-?-?-?-?-?-?-?-?-?- Effaced St Visit Note 10/10/24 -?-?-?-?-?-?-?-?-?-?-?-?- 8w 5d 127 lb 2 oz 115/80 -?-?-?-?-?-?-?-?-?-?-?-?- 185 -?-?-?-?-?-?-?-?-?-?-?-?- KW- CRL 2.09cm a nd cons with dates. Declines NIPT. 11/06/24 -?-?-?-?-?-?-?-?-?-?-?-?- 12w 4d 123 lb 9 oz 109/73 -?-?-?-?-?-?-?-?-?-?-?-?- 184 -?-?-?-?-?-?-?-?-?-?-?-?- KW- no vb/crampi ng. feeling much better. US ordered with WC. ACOG First Trimester First Trimester: Desire for , Alcohol, Tobacco Cessation, Illicit/Recreational Drug/Substance Use, Intimate Partner Violence, Barriers to care, Unstable Housing, Communication Barriers, Environmental/Work Hazards, Anticipated Course of Care, Toxoplasmosis Precations, Use of Any medications, Sexual activity, Exercise, Dental Care, Sauna/Hot tub use, Seat Belt use, Childbirth classes/Hospital facilities, Travel, Indications for Ultrasound and Screening for Aneuploidy; Discussed Second Trimester Second Trimester: Signs and Symptoms of Labor, Selecting a care provider, Reproductive Life Planning & Contreception, Care Planning, Depression/Anxiety and Intimate Partner Violence; Discussed Tobacco Cessation Third Trimester Third Trimester: Pain Management Plans, Labor support person(s), Immediate Larc, Signs and Symptoms of Preeclampsia, Infant Feeding No , [place] Education and Family Medical Leave or Disability Forms ROS Const Reports system reviewed and no additional complaints, except as documented Eyes Reports system reviewed and no additional complaints, except as documented ENT Reports system reviewed and no additional complaints, except as documented Card Reports system reviewed and no additional complaints, except as documented Resp Reports system reviewed and no additional complaints, except as documented GI Reports system reviewed and no additional complaints, except as documented, Denies nausea and Denies vomiting Reports system reviewed and no additional complaints, except as documented Musc Reports system reviewed and no additional complaints, except as documented Skin/Breast Reports system reviewed and no additional complaints, except as documented Neuro Yes system reviewed and no additional complaints, except as documented Psych Reports system reviewed and no additional complaints, except as documented Endo Reports system reviewed and no additional complaints, except as documented Randall/Lymph Reports system reviewed and no additional complaints, except as documented Aller/Immun Reports system reviewed and no additional complaints, except as documented Exam Const General: cooperative, healthy appearing and no acute distress Orientation: alert, awake and oriented x3 Neck Neck: normal visual inspection and full ROM Resp Effort & Inspection: normal respiratory effort, able to speak in complete sentences and symmetric chest movement GI Inspection: normal to inspection Palpation: soft and other Other: gravid Skin General: no rashes or lesions noted Neuro General: patient alert, patient awake and patient oriented x3 Cognition: normal cognition Speech: speech normal Gait: normal gait Motor: muscle tone normal throughout Extrem General: normal to inspection and full ROM Psych Appearance: grossly normal Mental Status: mental status grossly normal Mood: congruent mood Affect: normal affect Speech and Movement: speech and movement normal Attitude: cooperative Thought Process: normal Thought Content: normal Judgment: judgment good Coding Level of Care Code OB Routine Diagnoses Supervision of high-risk O09.90 12 weeks gestation of Z3A.12 Weeks of gestation: 12 weeks PCOS (polycystic ovarian syndrome) E28.2 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 Assessment and Plan Assessment and Plan (1) Supervision of high-risk : Status: Acute Comment: PRR, , LILIA 05/17/25, PC Mir Joey, Andrey (2) : Status: Acute Qualifiers: Weeks of gestation: 12 weeks Qualified Code(s): Z3A.12 - 12 weeks gestation of Comment: declines NIPT & Carrier testing (3) PCOS (polycystic ovarian syndrome): Status: Acute (4) Infertility associated with anovulation: Status: Acute Comment: spontaneous Orders: Orders OB Anatomy w/ Transvaginal 12/30/24 O09.90 - Supervision of high risk , unspecified, unspecified trimester Plan Details Additional Comments: ACOG trimester education reviewed and updated. see problem list details for updated plan management information and see below for orders placed at this visit. GA appropriate handout given. 11/06/24 [id number] <Electronically signed by Gail briseno CNM> Date _ Gail Murphy CNM Cosigner Signature: Date (if applicable) CC: ~ [facility] Work Phone: 1(206) 327-374007-10-2025 Evaluation note* Diagnosis Onset Date Resolution Status Admit Date Infertility associated with anovulation acute October 10, 2024 10:30am PCOS (polycystic ovarian syndrome) acute October 10, 2024 10:30am acute October 10 10:30am Supervision of high-risk acute October 10, 2024 10:30am [facility] Work Phone: 1(332) 391-726007-10-2025 Evaluation note* Diagnosis Onset Date Resolution Status Admit Date Infertility associated with anovulation acute October 10, 2024 10:30am PCOS (polycystic ovarian syndrome) acute October 10, 2024 10:30am acute October 10 10:30am Supervision of high-risk acute October 10, 2024 10:30am Infertility associated with anovulation acute November 06, 2024 2:36pm PCOS (polycystic ovarian syndrome) acute November 06, 2024 2:36pm acute November 06 2:36pm Supervision of high-risk acute November 06, 2024 2:36pm [facility] Work Phone: 1(336) 437-691207-10-2025 Evaluation note* Diagnosis Onset Date Resolution Status Admit Date Infertility associated with anovulation acute October 10, 2024 10:30am PCOS (polycystic ovarian syndrome) acute October 10, 2024 10:30am acute October 10 10:30am Supervision of high-risk acute October 10, 2024 10:30am Infertility associated with anovulation acute November 06, 2024 2:36pm PCOS (polycystic ovarian syndrome) acute November 06, 2024 2:36pm acute November 06 2:36pm Supervision of high-risk acute November 06, 2024 2:36pm Infertility associated with anovulation acute December 03 025 9:44am PCOS (polycystic ovarian syndrome) acute December 03, 025 9:44am acute December 03, 2024 9:44am Supervision of high-risk acute December 03 025 9:44am [facility] Work Phone: 1(463) 342-309807-10-2025 Evaluation note* Diagnosis Onset Date Resolution Status Admit Date Infertility associated with anovulation acute October 10, 2024 10:30am PCOS (polycystic ovarian syndrome) acute October 10, 2024 10:30am acute October 10 10:30am Supervision of high-risk acute October 10, 2024 10:30am Infertility associated with anovulation acute November 06, 2024 2:36pm PCOS (polycystic ovarian syndrome) acute November 06, 2024 2:36pm acute November 06 2:36pm Supervision of high-risk acute November 06, 2024 2:36pm Infertility associated with anovulation acute December 03, 2 025 9:44am PCOS (polycystic ovarian syndrome) acute December 03, 2 025 9:44am acute December 03, 2024 9:44am Supervision of high-risk acute December 03 9:44am Infertility associated with anovulation acute December 30, 2024 11:13am PCOS (polycystic ovarian syndrome) acute December 30, 2024 11:13am acute December 11:13am Supervision of high-risk acute December 30, 2024 11:13am [facility] Work Phone: 1(404) 689-160007-10-2025 [facility] [address] [place] [address], [address] [place] [address] OFFICE VISIT Date of Service: 10/10/24 MR#: [id number] Acct: [id number] Name: DOLLY GRAY Rep #: [id number] : 1990 Provider: VASYL Murphy Age/Sex: 34/F Location: [place] Status: Signed Intake Vital Signs 03/06/21 07:32 10/03/24 12:30 10/10/24 10:33 Height 5 ft 2 in 5 ft 2 in 5 ft 2 in Weight: 126 lb 8 oz 127 lb 2 oz BMI 23.1 23.2 BP 102/60 115/80 Blood Pressure Location Lt brachial Position Sitting Intake Visit Reasons: *NEW* NOB LMP 08/10, LILIA 05/17 Chief Complaint: New OB Picture Frames Inspector Required: No Is patient in pain?: No Allergies No Known Allergies Allergy (Verified 10/10/24 10:31) Medications ?Medication ?Instructions ?Recorded ?Confirmed ?Type vitamins no.121-iron 28 1 ea PO DAILY pregnan cy 10/30/18 10/10/24 History mg-folic acid 800 mcg tablet Last Menstrual Period: 08/10/24 Have you fallen in the past year?: No PFSH PFSH Surgical History History of tonsillectomy Social History adopted: No household members: spouse and children housing: house number of children: 2 current occupational status: unemployed current occupation: [employer] pets and animals: Yes (Avoid litterbox) pets and animals: cat(s) and dog(s) history of recent travel: Yes (July) out of state: Yes out of country: No sexually active: Yes Smoking Status: Never smoker alcohol intake: never substance use type: does not use well-balanced diet: daily or most days caffeine: Yes Type: coffee Number of servings: 1 eating out: rarely or never during the past year weight has: remained stable what type of physical activity do you participate in: none ben/holiness: Bahai seatbelt use: always do you feel safe at home: Yes additional social history: Andrey History 2 Elective abortions Hx Para 2 Spontaneous abortions Hx # Term Pregnancies 2 Ectopic pregnancies Hx # Pregnancies 0 Multiple births # of living children 2 Past Pregnancies Del. Date Name GA/Weeks Outcome Route Bth Weight Infant Gen Labor Lgth Anesthesia Del Locatn Provider FOB 10/31/18 Mir 41 live - full term vacuum 6#5oz Male epidu ral [facility] Nathalie A nthony 03/06/21 Aerie 38 live - full term 5#8oz Female none [facility] Nathalie Balderas HPI *NEW* NOB LMP 08/10, ILLIA 05/17 Details: DOLLY GRAY is a 34 year old who presents for New OB visit. OB Visit LILIA Calculator Estimated Delivery Date Method Current WG Current Estimate 05/17/25 LMP (Certain) 8w 5d Other Estimates 05/17/25 Ultrasound #1 8w 5d Comments: HIV: Urine Culture: Sequential Screen: NIPT Screen: Estimated Due Date: 05/17/25 Expected Delivery Route/Plan Labor Preferences- CB/BF classes: [] labor support person: [] labor intervention preferences: [] pain management options preferred: [] cut cord/dad catch: [] : [] PP control planned: [] discussed possible routes of delivery and associated risks: [] special requests: [] Specific Issue/Plans Covid status: [] Flu vaccine: [] Tdap vaccine: [] Rhogam: [] LARC form signed: [] Problem list reviewed and updated with the most current plan of care details and appropriate ordersplaced. Relevant counseling for the gestational age provided. Continue routine care and follow up unless otherwise noted in visit notes/problem list details Initial Weight: Not Recorded Date -?-?-?-?-?-?-?-?-?-?-?-?- EGA Weight BP Urine Prot -?-?-?-?--?-?-?-?-?-?-?-?- Glucose FHR FuHt Pres Dilation -?-?-?-?-?-?-?-?-?-?--?-?- Effaced St Visit Note 10/10/24 -?-?-?-?-?-?-?-?-?-?-?-?- 8w 5d 127 lb 2 oz 115/80 -?-?-?-?-?-?-?-?-?-?-?-?- 185 -?-?-?-?-?-?-?-?-?-?-?-?- KW- CRL 2.09cm a nd cons with dates. Declines NIPT. Menstrual History Last Menstrual Period: 08/10/24 Reported LMP: definite Normal amount/duration: Yes Frequency in days: 32-35 On hormonal BC at conception: No hCG+: 09/17/24 Antepartum Record Genetic Screening: Congenital Heart Defect: Patient (nephew, opposite side had heart surgery), Neural Tube Defect: Other, Hemoglobinopathy Or Carrier: Other, Cystic Fibrosis: Other, Chromosome Abnormality: Other, Rojas-Sachs: Other, Hemophilia: Other, Intellectual Disability/Autism: Other, Recurrent Loss/Stillbirth: Other, Other Structural Defect: Other, Other Genetic Disease: Otherand Maternal Metabolic Disorder: Other Infection History: Live with someone with TB or Exposed to TB: No, Patient or Partner has history of Genital Herpes: No, Rash or Viral illness since last mentrual period: No, Prior GBS-Infected child: No, History of STD: No, HIV Infection: No, History of Hepatitis: No, Recent travel outside of [place]: No, Concern for hepatitis exposure: No, Varicella immune: Yes (immune) and Covid Vaccinated: No Medical History Medical History: Positive: Operations/hospitalizations (tonsillectomy), Infertility (3 yrs to conceive 1st preg, 2 years to conceive this time) and Other (PCOS) and Negative: Diabetes, Hypertension, Heart disease, Auto-immune disorder, Kidney disease/UTI, Neurologic/epilepsy, Psychiatric, Depression / depression, Hepatitis/liver disease, Varicosities/phlebitis, Thyroid dysfunction, Trauma/domestic violence, History of blood transfusions, D (Rh) Sensitized, Pulmonary (e.g.,TB,Asthma), Seasonal allergies, Drug/latex allergies/reactions, Breast, School Curriculum Developer surgery, Anesthetic complications, History of abnormal pap, Uterine anomaly/luisa, Anti-retroviral treatment and Relevant family history ACOG First Trimester First Trimester: Nurtrition and weight gain Second Trimester Second Trimester: Signs and Symptoms of Labor, Selecting a care provider, Reproductive Life Planning & Contreception, Care Planning, Depression/Anxiety and Intimate Partner Violence; Discussed Tobacco Cessation Third Trimester Third Trimester: Pain Management Plans, Labor support person(s), Immediate Larc, Signs and Symptoms of Preeclampsia, Feeding, Education and Family Medical Leave or Disability Forms ROS Const Reports system reviewed and no additional complaints, except as documented Eyes Reports system reviewed and no additional complaints, except as documented ENT Reports system reviewed and no additional complaints, except as documented Card Reports system reviewed and no additional complaints, except as documented Resp Reports system reviewed and no additional complaints, except as documented GI Reports system reviewed and no additional complaints, except as documented, Denies nausea and Denies vomiting Reports system reviewed and no additional complaints, except as documented Musc Reports system reviewed and no additional complaints, except as documented Skin/Breast Reports system reviewed and no additional complaints, except as documented Neuro Yes system reviewed and no additional complaints, except as documented Psych Reports system reviewed and no additional complaints, except as documented Endo Reports system reviewed and no additional complaints, except as documented Randall/Lymph Reports system reviewed and no additional complaints, except as documented Aller/Immun Reports system reviewed and no additional complaints, except as documented Exam Const General: cooperative, healthy appearing and no acute distress Orientation: alert, awake and oriented x3 Neck Neck: normal visual inspection and full ROM Chest Chest palpation & inspection: normal inspection of the chest Breast inspection: normal inspection of the breasts and normal inspection of the axillae Breast palpation: normal palpation of the breasts and normal palpation of the axillae Resp Effort & Inspection: normal respiratory effort, able to speak in complete sentences and symmetric chest movement GI Inspection: normal to inspection Palpation: soft and other Other: gravid External Female Exam: normal external appearance and normal appearance of the urethra Urethra: normal appearance of the urethra Skin General: no rashes or lesions noted Neuro General: patient alert, patient awake and patient oriented x3 Cognition: normal cognition Speech: speech normal Gait: normal gait Motor: muscle tone normal throughout Extrem General: normal to inspection and full ROM Psych Appearance: grossly normal Mental Status: mental status grossly normal Mood: congruent mood Affect: normal affect Speech and Movement: speech and movement normal Attitude: cooperative Thought Process: normal Thought Content: normal Judgment: judgment good Coding Level of Care Code OB Routine Diagnoses Supervision of high-risk O09.90 8 weeks gestation of Z3A.08 Weeks of gestation: 8 weeks PCOS (polycystic ovarian syndrome) E28.2 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 Assessment and Plan Assessment and Plan (1) Supervision of high-risk : Status: Acute Comment: , LILIA 05/17/25, Joey Garcia, Andrey (2) : Status: Acute Qualifiers: Weeks of gestation: 8 weeks Qualified Code(s): Z3A.08 - 8 weeks gestation of Comment: declines NIPT & Carrier testing (3) PCOS (polycystic ovarian syndrome): Status: Acute (4) Infertility associated with anovulation: Status: Acute Comment: spontaneous Orders: Orders CBC W/Diff, Automated 10/03/24 O09.90 - Supervision of high risk , unspecified, unspecified trimester Type & Screen 10/03/24 O09.90 - Supervision of high risk , unspecified, unspecified trimester Rubella IgG 10/03/24 O09.90 - Supervision of high risk , unspecified, unspecified trimester Hepatitis C Antibody 10/03/24 O09.90 - Supervision of high risk , unspecified, unspecifiedtrimester Hepatitis B Surface Antigen 10/03/24 O09.90 - Supervision of high risk , unspecified, unspecified trimester Culture, Urine 10/03/24 O09.90 - Supervision of high risk , unspecified, unspecified trimester Syphilis Antibodies 10/03/24 O09.90 - Supervision of high risk , unspecified, unspecified trimester Chlamydia/GC TEE aptima 10/03/24 O09.90 - Supervision of high risk , unspecified, unspecified trimester HIV 10/03/24 O09.90 - Supervision of high risk , unspecified, unspecified trimester POC Urine 10/03/24 N91.1 - Secondary amenorrhea Plan Details Additional Comments: ACOG trimester education reviewed and updated. see problem list details for updated plan management information and see below for orders placed atthis visit. [place] appropriate handout given. Comments Comments: Patient oriented to practice and discussed care expectations and screenings. ACOG book offered to patient. Discussed routine and specially indicated labs if needed- patient consents to testing. See problem list details for plan information. Optional screening including maternal carrier screenings, neural tube defect screening, genetic screening options including quad screen, nuchal translucency, sequential screening, and NIPT screening offered to patient and patient chose: Declines Clinical Quality Measures Falls Risk Screening/Assistive Devices Have you fallen in the past year?: No 10/10/24 1101 s CNM> Date _ Gail Murphy CNM Cosigner Signature: Date (if applicable) CC: [facility] Work Phone: Evaluation note* Diagnosis Onset Date Resolution Status Admit Date Infertility associated with anovulation acute October 10, 2024 10:30am PCOS (polycystic ovarian syndrome) acute October 10, 2024 10:30am acute October 10 10:30am Supervision of high-risk acute October 10, 2024 10:30am [facility] Work Phone: Progress note Author Gail Murphy [facility] Note Date/Time October 10, 2024 11:0 1am [facility] [address] [place] [address], [address] [place] [address] OFFICE VISIT Date of Service: 10/10/24 MR#: [id number] Acct: [id number] Name: DOLLY GRAY Rep #: [id number] : 1990 Provider: VASYL Murphy Age/Sex: 34/F Location: [facility] Status: Signed Intake Vital Signs 03/06/21 07:32 10/03/24 12:30 10/10/24 10:33 Height 5 ft 2 in 5 ft 2 in 5 ft 2 in Weight: 126 lb 8 oz 127 lb 2 oz BMI 23.1 23.2 BP 102/60 115/80 Blood Pressure Location Lt brachial Position Sitting Intake Visit Reasons: *NEW* NOB LMP 08/10, LILIA 05/17 Chief Complaint: New OB Picture Frames Inspector Required: No Is patient in pain?: No Allergies No Known Allergies Allergy (Verified 10/10/24 10:31) Medications ?Medication ?Instructions ?Recorded ?Confirmed ?Type vitamins no.121-iron 28 1 ea PO DAILY pregnan cy 10/30/18 10/10/24 History mg-folic acid 800 mcg tablet Last Menstrual Period: 08/10/24 Have you fallen in the past year?: No PFSH PFSH Surgical History History of tonsillectomy Social History adopted: No household members: spouse and children housing: house number of children: 2 current occupational status: unemployed current occupation: [employer] pets and animals: Yes (Avoid litterbox) pets and animals: cat(s) and dog(s) history of recent travel: Yes (July) out of state: Yes out of country: No sexually active: Yes Smoking Status: Never smoker alcohol intake: never substance use type: does not use well-balanced diet: daily or most days caffeine: Yes Type: coffee Number of servings: 1 eating out: rarely or never during the past year weight has: remained stable what type of physical activity do you participate in: none ben/holiness: Bahai seatbelt use: always do you feel safe at home: Yes additional social history: Andrey History 2 Elective abortions Hx Para 2 Spontaneous abortions Hx # Term Pregnancies 2 Ectopic pregnancies Hx # Pregnancies 0 Multiple births # of living children 2 Past Pregnancies Del. Date Name GA/Weeks Outcome Route Bth Weight Gen Labor Lgth Anesthesia Del Locatn Provider FOB 10/31/18 Mir 41 live - full term vacuum 6#5oz Male epidu ral [facility] Nathalie Roberts nthony 03/06/21 Aerie 38 live - full term 5#8oz Female none [facility] Nathalie Balderas HPI *NEW* NOB LMP 08/10, LILIA 05/17 Details: DOLLY GRAY is a 34 year old who presents for New OB visit. OB Visit LILIA Calculator Estimated Delivery Date Method Current WG Current Estimate 05/17/25 LMP (Certain) 8w 5d Other Estimates 05/17/25 Ultrasound #1 8w 5d Comments: HIV: Urine Culture: Sequential Screen: NIPT Screen: Estimated Due Date: 05/17/25 Expected Delivery Route/Plan Labor Preferences- CB/BF classes: [] labor support person: [] labor intervention preferences: [] pain management options preferred: [] cut cord/dad catch: [] : [] PP control planned: [] discussed possible routes of delivery and associated risks: [] special requests: [] Specific Issue/Plans Covid status: [] Flu vaccine: [] Tdap vaccine: [] Rhogam: [] LARC form signed: [] Problem list reviewed and updated with the most current plan of care details and appropriate orders placed. Relevant counseling for the gestational age provided. Continue routine care and follow up unless otherwise noted in visit notes/problem list details Initial Weight: Not Recorded Date -?-?-?-?-?-?-?-?-?-?-?-?- EGA Weight BP Urine Prot -?-?-?-?--?-?-?-?-?-?-?-?- Glucose FHR FuHt Pres Dilation -?-?-?-?-?-?-?-?-?-?--?-?- Effaced St Visit Note 10/10/24 -?-?-?-?-?-?-?-?-?-?-?-?- 8w 5d 127 lb 2 oz 115/80 -?-?-?-?-?-?-?-?-?-?-?-?- 185 -?-?-?-?-?-?-?-?-?-?-?-?- KW- CRL 2.09cm a nd cons with dates. Declines NIPT. Menstrual History Last Menstrual Period: 08/10/24 Reported LMP: definite Normal amount/duration: Yes Frequency in days: 32-35 On hormonal BC at conception: No hCG+: 09/17/24 Antepartum Record Genetic Screening: Congenital Heart Defect: Patient (nephew, opposite side had heart surgery), Neural Tube Defect: Other, Hemoglobinopathy Or Carrier: Other, Cystic Fibrosis: Other, Chromosome Abnormality: Other, Rojas-Sachs: Other, Hemophilia: Other, Intellectual Disability/Autism: Other, Recurrent Loss/Stillbirth: Other, Other Structural Defect: Other, Other Genetic Disease: Other and Maternal Metabolic Disorder: Other Infection History: Live with someone with TB or Exposed to TB: No, Patient or Partner has history of Genital Herpes: No, Rash or Viral illness since last mentrual period: No, Prior GBS-Infected child: No, History of STD: No, HIV Infection: No, History of Hepatitis: No, Recent travel outside of [place]: No, Concern for hepatitis exposure: No, Varicella immune: Yes (immune) and Covid Vaccinated: No Medical History Medical History: Positive: Operations/hospitalizations (tonsillectomy), Infertility (3 yrs to conceive 1st preg, 2 years to conceive this time) and Other (PCOS) and Negative: Diabetes, Hypertension, Heart disease, Auto-immune disorder, Kidney disease/UTI, Neurologic/epilepsy, Psychiatric, Depression/ depression, Hepatitis/liver disease, Varicosities/phlebitis, Thyroid dysfunction, Trauma/domestic violence, History of blood transfusions, D (Rh) Sensitized, Pulmonary (e.g.,TB,Asthma), Seasonal allergies, Drug/latex allergies/reactions, Breast, School Curriculum Developer surgery, Anesthetic complications, History of abnormal pap, Uterine anomaly/luisa, Anti-retroviral treatment and Relevant family history ACOG First Trimester First Trimester: Nurtrition and weight gain Second Trimester Second Trimester: Signs and Symptoms of Labor, Selecting a care provider, Reproductive Life Planning & Contreception, Care Planning, Depression/Anxiety and Intimate Partner Violence; Discussed Tobacco Cessation Third Trimester Third Trimester: Pain Management Plans, Labor support person(s), Immediate Larc, Signs and Symptoms of Preeclampsia, Feeding, Education and Family Medical Leave or Disability Forms ROS Const Reports system reviewed and no additional complaints, except as documented Eyes Reports system reviewed and no additional complaints, except as documented ENT Reports system reviewed and no additional complaints, except as documented Card Reports system reviewed and no additional complaints, except as documented Resp Reports system reviewed and no additional complaints, except as documented GI Reports system reviewed and no additional complaints, except as documented, Denies nausea and Denies vomiting Reports system reviewed and no additional complaints, except as documented Musc Reports system reviewed and no additional complaints, except as documented Skin/Breast Reports system reviewed and no additional complaints, except as documented Neuro Yes system reviewed and no additional complaints, except as documented Psych Reports system reviewed and no additional complaints, except as documented Endo Reports system reviewed and no additional complaints, except as documented Randall/Lymph Reports system reviewed and no additional complaints, except as documented Aller/Immun Reports system reviewed and no additional complaints, except as documented Exam Const General: cooperative, healthy appearing and no acute distress Orientation: alert, awake and oriented x3 Neck Neck: normal visual inspection and full ROM Chest Chest palpation & inspection: normal inspection of the chest Breast inspection: normal inspection of the breasts and normal inspection of the axillae Breast palpation: normal palpation of the breasts and normal palpation of the axillae Resp Effort & Inspection: normal respiratory effort, able to speak in complete sentences and symmetric chest movement GI Inspection: normal to inspection Palpation: soft and other Other: gravid External Female Exam: normal external appearance and normal appearance of the urethra Urethra: normal appearance of the urethra Skin General: no rashes or lesions noted Neuro General: patient alert, patient awake and patient oriented x3 Cognition: normal cognition Speech: speech normal Gait: normal gait Motor: muscle tone normal throughout Extrem General: normal to inspection and full ROM Psych Appearance: grossly normal Mental Status: mental status grossly normal Mood: congruent mood Affect: normal affect Speech and Movement: speech and movement normal Attitude: cooperative Thought Process: normal Thought Content: normal Judgment: judgment good Coding Level of Care Code OB Routine Diagnoses Supervision of high-risk O09.90 8 weeks gestation of Z3A.08 Weeks of gestation: 8 weeks PCOS (polycystic ovarian syndrome) E28.2 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 Assessment and Plan Assessment and Plan (1) Supervision of high-risk : Status: Acute Comment: , LILIA 05/17/25, Joey Garcia, Andrey (2) : Status: Acute Qualifiers: Weeks of gestation: 8 weeks Qualified Code(s): Z3A.08 - 8 weeks gestation of Comment: declines NIPT & Carrier testing (3) PCOS (polycystic ovarian syndrome): Status: Acute (4) Infertility associated with anovulation: Status: Acute Comment: spontaneous Orders: Orders CBC W/Diff, Automated 10/03/24 O09.90 - Supervision of high risk , unspecified, unspecified trimester Type & Screen 10/03/24 O09.90 - Supervision of high risk , unspecified, unspecified trimester Rubella IgG 10/03/24 O09. - Supervision of high risk , unspecified, unspecified trimester Hepatitis C Antibody 10/03/24 O09.90 - Supervision of high risk , unspecified, unspecified trimester Hepatitis B Surface Antigen 10/03/24 O. - Supervision of high risk , unspecified, unspecified trimester Culture, Urine 10/03/24 O. - Supervision of high risk , unspecified, unspecified trimester Syphilis Antibodies 10/03/24 O09.90 - Supervision of high risk , unspecified, unspecified trimester Chlamydia/GC TEE aptima 10/03/24 O - Supervision of high risk , unspecified, unspecified trimester HIV 10/03/24 O09. - Supervision of high risk , unspecified, unspecified trimester POC Urine 10/03/24 N91.1 - Secondary amenorrhea Plan Details Additional Comments: ACOG trimester education reviewed and updated. see problem list details for updated plan management information and see below for orders placed at this visit. [place] appropriate handout given. Comments Comments: Patient oriented to practice and discussed care expectations and screenings. ACOG book offered to patient. Discussed routine and specially indicated labs if needed- patient consents to testing. See problem list details for plan information. Optional screening including maternal carrier screenings, neural tube defect screening, genetic screening options including quad screen, nuchal translucency, sequential screening, and NIPT screening offered to patient and patient chose: Declines Clinical Quality Measures Falls Risk Screening/Assistive Devices Have you fallen in the past year?: No 10/10/24 1101 <Electronically signed by Gail briseno CNM> Date _ Gail Murphy CNM Cosigner Signature: Date (if applicable) CC: ~ [facility] Work Phone: Progress note Author Marlena Álvarez [facility] Note Date/Time December 03, 2024 10:00am [facility] [address], [address] [place] [address] OFFICE VISIT Date of Service: 12/03/24 MR#: [id number] Acct: [id number] Name: DOLLY GRAY Rep #: [id number] : 1990 Provider: JOAO Álvarez Age/Sex: 34/F Location: [facility] Status: Signed Intake Vital Signs 10/10/24 10:33 11/06/24 14:41 12/03/24 09:47 12/03/24 09:53 Height 5 ft 2 in 5 ft 2 in 5 ft 2 in 5 ft 2 in Weight: 127 lb 9 oz BMI 23.3 BP 102/68 Intake Visit Reasons: 16 wk ob Chief Complaint: 16 Week OB Picture Frames Inspector Required: No Is patient in pain?: No Allergies No Known Allergies Allergy (Verified 12/03/24 09:47) Medications ?Medication ?Instructions ?Recorded ?Confirmed ?Type vitamins no.121-iron 28 1 ea PO DAILY pregnan cy 10/30/18 12/03/24 History mg-folic acid 800 mcg tablet Last Menstrual Period: 08/10/24 Zika: Zika virus screening: Negative : No PFSH PFSH Surgical History History of tonsillectomy Social History adopted: No household members: spouse and children housing: house number of children: 2 current occupational status: unemployed current occupation: [employer] pets and animals: Yes (Avoid litterbox) pets and animals: cat(s) and dog(s) history of recent travel: Yes (July) out of state: Yes out of country: No sexually active: Yes Smoking Status: Never smoker alcohol intake: never substance use type: does not use well-balanced diet: daily or most days caffeine: Yes Type: coffee Number of servings: 1 eating out: rarely or never during the past year weight has: remained stable what type of physical activity do you participate in: none ben/holiness: Bahai seatbelt use: always do you feel safe at home: Yes additional social history: Andrey History 2 Elective abortions Hx Para 2 Spontaneous abortions Hx # Term Pregnancies 2 Ectopic pregnancies Hx # Pregnancies 0 Multiple births # of living children 2 Past Pregnancies Del. Date Name GA/Weeks Outcome Route Bth Weight Gen Labor Lgth Anesthesia Del Locatn Provider FOB 10/31/18 Mir 41 live - full term vacuum 6#5oz Male epidu ral [facility] Radamesterrell Adnrey 03/06/21 Aerie 38 live - full term 5#8oz Female none [facility] Andrey HPI 16 wk ob Details: DOLLY GRAY is a 34 year old who presents for routine OB visit. OB Visit LILIA Calculator Estimated Delivery Date Method Current WG Current Estimate 05/17/25 LMP (Certain) 16w 3d Other Estimates 05/17/25 Ultrasound #1 16w 3d Expected Delivery Route/Plan Labor Preferences- CB/BF classes: [] labor support person: [] labor intervention preferences: [] pain management options preferred: [] cut cord/dad catch: [] : [] PP control planned: [] discussed possible routes of delivery and associated risks: [] special requests: [] Specific Issue/Plans Covid status: [] Flu vaccine: [] Tdap vaccine: [] Rhogam: [] LARC form signed: [] Problem list reviewed and updated with the most current plan of care details and appropriate orders placed. Relevant counseling for the gestational age provided. Continue routine care and follow up unless otherwise noted in visit notes/problem list details Initial Weight: Not Recorded Date -?-?--?-?-?-?-?-?-?-?-?-?- EGA Weight BP Urine Prot -?-?-?-?-?-?-?-?-?-?-?-?- Glucose FHR FuHt Pres Dilation -?-?-?-?-?-?-?-?-?-?-?-?- Effaced St Visit Note 10/10/24 -?-?-?-?-?-?-?-?-?-?-?-?- 8w 5d 127 lb 2 oz 115/80 -?-?-?-?-?-?-?-?-?-?-?-?- 185 -?-?-?-?-?-?-?-?-?-?-?-?- KW- CRL 2.09cm a nd cons with dates. Declines NIPT. 11/06/24 -?-?-?-?-?-?-?-?-?-?-?-?- 12w 4d 123 lb 9 oz 109/73 Nega tive -?-?-?-?-?-?-?-?-?-?-?-?- Negative 184 -?-?-?-?-?-?-?-?-?-?-?-?- KW- no vb/crampi ng. feeling much better. US ordered with WC. 12/03/24 -?-?-?-?-?-?-?-?-?-?-?-?- 16w 3d 127 lb 9 oz 102/68 Nega tive -?-?-?-?-?-?-?-?-?-?-?-?- Negative 166 -?-?-?-?-?-?-?-?-?-?-?-?- MH-No VB, LOF. G ood FM. Nausea resolved ACOG First Trimester First Trimester: Desire for , Alcohol, Tobacco Cessation, Illicit/Recreational Drug/Substance Use, Intimate Partner Violence, Barriers to care, Unstable Housing, Communication Barriers, Environmental/Work Hazards, Anticipated Course of Care, Toxoplasmosis Precations, Use of Any medications, Sexual activity, Exercise, Dental Care, Sauna/Hot tub use, Seat Belt use, Childbirth classes/Hospital facilities, Travel, Indications for Ultrasound and Screening for Aneuploidy; Discussed Second Trimester Second Trimester: Signs and Symptoms of Labor, Selecting a care provider, Reproductive Life Planning & Contreception, Care Planning, Depression/Anxiety and Intimate Partner Violence; Discussed Tobacco Cessation Third Trimester Third Trimester: Pain Management Plans, Labor support person(s), Immediate Larc, Signs and Symptoms of Preeclampsia, Feeding No , [place] Education and Family Medical Leave or Disability Forms ROS Const Reports system reviewed and no additional complaints, except as documented GI Denies abdominal pain, Denies nausea and Denies vomiting Exam Const General: cooperative Nutritional Appearance: well nourished GI Palpation: soft, nontender and other (gravid) Results POC Urinalysis 2 Dip (Clinic) Office Urine Glucose Negative Last Edit by Madonna Griffith on 12/03/24 09 :53 Office Urine Protein Negative Last Edit by Madonna Griffith on 12/03/24 09 :53 Coding Level of Care Code OB Routine Diagnoses Supervision of high risk in second trimester O09.92 Trimester: second trimester 16 weeks gestation of Z3A.16 Weeks of gestation: 16 weeks PCOS (polycystic ovarian syndrome) E28.2 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 Assessment and Plan Assessment and Plan (1) Supervision of high-risk : Status: Acute Qualifiers: Trimester: second trimester Qualified Code(s): O09.92 - Supervision of high risk , unspecified, second trimester Comment: PRR, , LILIA 05/17/25, PC Joey Hester, Andrey (2) : Status: Acute Qualifiers: Weeks of gestation: 16 weeks Qualified Code(s): Z3A.16 - 16 weeks gestation of Comment: declines NIPT & Carrier testing (3) PCOS (polycystic ovarian syndrome): Status: Acute (4) Infertility associated with anovulation: Status: Acute Comment: spontaneous Orders: Orders POC Urinalysis 2 Dip (Clinic) Today Plan problem list reviewed and updated for most current plan of care and appropriate orders placed. Relevant counseling for the gestational age appropriate provided and ACOG education checklist updated. Continue routine care and follow up. 12/03/24 1001 <Electronically signed by Marlena briseno NP TRANSMITTER ENGINEER-C> Date _ Marlena Álvarez NP TRANSMITTER ENGINEER-C Cosigner Signature: Date (if applicable) CC: ~ [facility] Work Phone: Progress note Author Gail Murphy [facility] Note Date/Time December 30, 2024 11:35am [facility] [address], [address] [place] [address] OFFICE VISIT Date of Service: 12/30/24 MR#: [id number] Acct: [id number] Name: DOLLY GRAY Rep #: [id number] : 1990 Provider: VASYL Murphy Age/Sex: 34/F Location: [facility] Status: Signed Intake Vital Signs 10/10/24 10:33 11/06/24 14:41 12/03/24 09:53 12/30/24 11:16 12/30/24 11:16 Height 5 ft 2 in 5 ft 2 in 5 ft 2 in 5 ft 2 in 5 ft 2 in Weight: 130 lb 4 oz BMI 23.8 BP 107/71 Intake Visit Reasons: 20 wk ob Is patient in pain?: No Allergies No Known Allergies Allergy (Verified 12/30/24 11:16) Medications ?Medication ?Instructions ?Recorded ?Confirmed ?Type vitamins no.121-iron 28 1 ea PO DAILY pregnan cy 10/30/18 12/30/24 History mg-folic acid 800 mcg tablet Last Menstrual Period: 08/10/24 Zika: Zika virus screening: Negative : No PFSH PFSH Surgical History History of tonsillectomy Social History adopted: No household members: spouse and children housing: house number of children: 2 current occupational status: unemployed current occupation: [employer] pets and animals: Yes (Avoid litterbox) pets and animals: cat(s) and dog(s) history of recent travel: Yes (July) out of state: Yes out of country: No sexually active: Yes Smoking Status: Never smoker alcohol intake: never substance use type: does not use well-balanced diet: daily or most days caffeine: Yes Type: coffee Number of servings: 1 eating out: rarely or never during the past year weight has: remained stable what type of physical activity do you participate in: none ben/holiness: Bahai seatbelt use: always do you feel safe at home: Yes additional social history: Andrey History 2 Elective abortions Hx Para 2 Spontaneous abortions Hx # Term Pregnancies 2 Ectopic pregnancies Hx # Pregnancies 0 Multiple births # of living children 2 Past Pregnancies Del. Date Name GA/Weeks Outcome Route Bth Weight Gen Labor Lgth Anesthesia Del Locatn Provider FOB 10/31/18 Mir 41 live - full term vacuum 6#5oz Male epidu ral [facility] Nathalie Balderas 03/06/21 Aerie 38 live - full term 5#8oz Female none [facility] Andrey HPI 20 wk ob Details: DOLLY GRAY is a 34 year old who presents for routine OB visit. OB Visit LILIA Calculator Estimated Delivery Date Method Current WG Current Estimate 05/17/25 LMP (Certain) 20w 2d Other Estimates 05/17/25 Ultrasound #1 20w 2d Expected Delivery Route/Plan Labor Preferences- CB/BF classes: [] labor support person: [] labor intervention preferences: [] pain management options preferred: [] cut cord/dad catch: [] : [] PP control planned: [] discussed possible routes of delivery and associated risks: [] special requests: [] Specific Issue/Plans Covid status: [] Flu vaccine: [] Tdap vaccine: [] Rhogam: [] LARC form signed: [] Problem list reviewed and updated with the most current plan of care details and appropriate orders placed. Relevant counseling for the gestational age provided. Continue routine care and follow up unless otherwise noted in visit notes/problem list details Initial Weight: Not Recorded Date -?-?-?-?-?-?-?-?-?-?-?-?- EGA Weight BP Urine Prot -?-?-?-?-?-?-?-?-?-?-?-?- Glucose FHR FuHt Pres Dilation -?-?-?-?-?-?-?-?-?-?-?-?- Effaced St Visit Note 10/10/24 -?-?-?-?-?-?-?-?-?-?-?-?- 8w 5d 127 lb 2 oz 115/80 -?-?-?-?-?-?-?-?-?-?-?-?- 185 -?-?-?-?-?-?-?-?-?-?-?-?- KW- CRL 2.09cm a nd cons with dates. Declines NIPT. 11/06/24 -?-?-?-?-?-?-?-?-?-?-?-?- 12w 4d 123 lb 9 oz 109/73 Nega tive -?-?-?-?-?-?-?-?-?-?-?-?- Negative 184 -?-?-?-?-?-?-?-?-?-?-?-?- KW- no vb/crampi ng. feeling much better. US ordered with [facility]. 12/03/24 -?-?-?-?-?-?-?-?-?-?-?-?- 16w 3d 127 lb 9 oz 102/68 Nega tive -?-?-?-?-?-?-?-?-?-?-?-?- Negative 166 -?-?-?-?-?-?-?-?-?-?-?-?- MH-No VB, LOF. G ood FM. Nausea resolved 12/30/24 -?-?-?-?-?-?-?-?-?-?-?-?- 20w 2d 130 lb 4 oz 107/71 -?-?-?-?-?-?-?-?-?-?-?-?- 155 20 -?-?-?-?-?-?-?-?-?-?-?-?- KW- no vb/lof/ct x. good fm US today after appt. ACOG First Trimester First Trimester: Desire for , Alcohol, Tobacco Cessation, Illicit/Recreational Drug/Substance Use, Intimate Partner Violence, Barriers to care, Unstable Housing, Communication Barriers, Environmental/Work Hazards, Anticipated Course of Care, Toxoplasmosis Precations, Use of Any medications, Sexual activity, Exercise, Dental Care, Sauna/Hot tub use, Seat Belt use, Childbirth classes/Hospital facilities, Travel, Indications for Ultrasound and Screening for Aneuploidy; Discussed Second Trimester Second Trimester: Signs and Symptoms of Labor, Selecting a care provider, Reproductive Life Planning & Contreception, Care Planning, Depression/Anxiety and Intimate Partner Violence; Discussed Tobacco Cessation Third Trimester Third Trimester: Pain Management Plans, Labor support person(s), Immediate Larc, Signs and Symptoms of Preeclampsia, Feeding No , Education and Family Medical Leave or Disability Forms ROS Const Reports system reviewed and no additional complaints, except as documented Eyes Reports system reviewed and no additional complaints, except as documented ENT Reports system reviewed and no additional complaints, except as documented Card Reports system reviewed and no additional complaints, except as documented Resp Reports system reviewed and no additional complaints, except as documented GI Reports system reviewed and no additional complaints, except as documented, Denies nausea and Denies vomiting Reports system reviewed and no additional complaints, except as documented Musc Reports system reviewed and no additional complaints, except as documented Skin/Breast Reports system reviewed and no additional complaints, except as documented Neuro Yes system reviewed and no additional complaints, except as documented Psych Reports system reviewed and no additional complaints, except as documented Endo Reports system reviewed and no additional complaints, except as documented Randall/Lymph Reports system reviewed and no additional complaints, except as documented Aller/Immun Reports system reviewed and no additional complaints, except as documented Exam Const General: cooperative, healthy appearing and no acute distress Orientation: alert, awake and oriented x3 Neck Neck: normal visual inspection and full ROM Resp Effort & Inspection: normal respiratory effort, able to speak in complete sentences and symmetric chest movement GI Inspection: normal to inspection Palpation: soft and other Other: gravid Skin General: no rashes or lesions noted Neuro General: patient alert, patient awake and patient oriented x3 Cognition: normal cognition Speech: speech normal Gait: normal gait Motor: muscle tone normal throughout Extrem General: normal to inspection and full ROM Psych Appearance: grossly normal Mental Status: mental status grossly normal Mood: congruent mood Affect: normal affect Speech and Movement: speech and movement normal Attitude: cooperative Thought Process: normal Thought Content: normal Judgment: judgment good Coding Level of Care Code OB Routine Diagnoses Supervision of high risk in second trimester O09.92 Trimester: second trimester 20 weeks gestation of Z3A.20 Weeks of gestation: 20 weeks PCOS (polycystic ovarian syndrome) E28.2 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 Assessment and Plan Assessment and Plan (1) Supervision of high-risk : Status: Acute Qualifiers: Trimester: second trimester Qualified Code(s): O09.92 - Supervision of high risk , unspecified, second trimester Comment: PRR, , LILIA 2/14/26, PC Joey Hester, Andrey (2) : Status: Acute Qualifiers: Weeks of gestation: 20 weeks Qualified Code(s): Z3A.20 - 20 weeks gestation of Comment: declines NIPT & Carrier testing (3) PCOS (polycystic ovarian syndrome): Status: Acute (4) Infertility associated with anovulation: Status: Acute Comment: spontaneous Orders: Orders POC Urinalysis 2 Dip (Clinic) Today Plan Details Additional Comments: ACOG trimester education reviewed and updated. see problem list details for updated plan management information and see below for orders placed at this visit. GA appropriate handout given. 12/30/24 0751 <Electronically signed by Gail briseno CNM> Date _ Gail Murphy CNM Cosigner Signature: Date (if applicable) CC: ~ [facility] Work Phone: Reason for referral (narrative)No reason for referral information available[facility] Work Phone: Summary Purpose Family History No Family History Records Found Brother (s) Status:Active Comments:2. Father Status:Active Comments:In good health. 1967; Mother Status:Active Comments:1967 Sister (s) Status:Active Comments:1. Brother (s) Status:Active Comments:2. Father Status:Active Comments:In good health. 1967; Mother Status:Active Comments:1967 Sister (s) Status:Active Comments:1. Brother (s) Status:Active Comments:2. Father Status:Active Comments:In good health. 1967; Mother Status:Active Comments:1967 Sister (s) Status:Active Comments:1. Brother (s) Status:Active Comments:2. Father Status:Active Comments:In good health. 1967; Mother Status:Active Comments:1967 Sister (s) Status:Active Comments:1. Brother (s) Status:Active Comments:2. Father Status:Active Comments:In good health. b. 1968; Mother Status:Active Comments:b. 1967 Sister (s) Status:Active Comments:1. Advance Directives No Advanced Directives Records FoundNo Advanced Directives Records FoundNo Advanced Directives Records Found Chief Complaint and Reason for Visit Chief Complaint Admit Date PNOB Confirm , Vitals October 03, 2024 11:12am Chief Complaint Admit Date PNOB Confirm , Vitals October 03, 2024 11:12am *NEW* NOB LMP 08/10, LILIA 05/17October 10, 2024 10:30am Reason for Visit Admit Date Infertility associated with anovulation October 10, 2024 10:30am PCOS (polycystic ovarian syndrome) October 10, 2024 10:30am October 10, 2024 10:3 0am Supervision of high-risk October 10, 2024 10:30am Chief Complaint Admit Date PNOB Confirm , Vitals October 03, 2024 11:12am *NEW* NOB LMP 08/10, LILIA 05/17October 10, 2024 10:30am 12 wk ob November 06, 2024 2:3 6pm Reason for Visit Admit Date Infertility associated with anovulation October 10, 2024 10:30am PCOS (polycystic ovarian syndrome) October 10, 2024 10:30am October 10, 2024 10:3 0am Supervision of high-risk October 10, 2024 10:30am Infertility associated with anovulation November 06, 2024 2:36pm PCOS (polycystic ovarian syndrome) Augus t 2024 2:36pm November 06, 2024 2:3 6pm Supervision of high-risk Augus t 2024 2:36pm Chief Complaint Admit Date PNOB Confirm , Vitals October 03, 2024 11:12am *NEW* NOB LMP 08/10, LILIA 05/17October 10, 2024 10:30am 12 wk ob November 06, 2024 2:3 6pm 16 wk ob December 03, 2024 9:44am Reason for Visit Admit Date Infertility associated with anovulation October 10, 2024 10:30am PCOS (polycystic ovarian syndrome) October 10, 2024 10:30am October 10, 2024 10:3 0am Supervision of high-risk October 10, 2024 10:30am Infertility associated with anovulation November 06, 2024 2:36pm PCOS (polycystic ovarian syndrome) Augus t 2024 2:36pm November 06, 2024 2:3 6pm Supervision of high-risk Augus t 2024 2:36pm Infertility associated with anovulation December 03, 2024 9:44am PCOS (polycystic ovarian syndrome) [facility] 2024 9:44am December 03, 2024 9:44am Supervision of high-risk [facility] 2024 9:44am Chief Complaint Admit Date PNOB Confirm , Vitals October 03, 2024 11:12am *NEW* NOB LMP 08/10, LILIA 05/17October 10, 2024 10:30am 12 wk ob November 06, 2024 2:3 6pm 16 wk ob December 03, 2024 9:44am 20 wk ob December 30, 2024 11:13am December 30, 2024 12:00pm Reason for Visit Admit Date Infertility associated with anovulation October 10, 2024 10:30am PCOS (polycystic ovarian syndrome) October 10, 2024 10:30am October 10, 2024 10:3 0am Supervision of high-risk October 10, 2024 10:30am Infertility associated with anovulation November 06, 2024 2:36pm PCOS (polycystic ovarian syndrome) Augus t 2024 2:36pm November 06, 2024 2:3 6pm Supervision of high-risk Augus t 2024 2:36pm Infertility associated with anovulation December 03, 2024 9:44am PCOS (polycystic ovarian syndrome) [facility] 2024 9:44am December 03, 2024 9:44am Supervision of high-risk [facility] 2024 9:44am Infertility associated with anovulation December 30, 2024 11:13am PCOS (polycystic ovarian syndrome) [facility] 2024 11:13am December 30, 2024 11:13am Supervision of high-risk [facility] 2024 11:13am Additional Source Comments INFORMATION SOURCE (unrecogn ized section and content) DATE CREATED AUTHOR 09/25/2020 [facility] DATE CREATED AUTHOR AUTHOR'S ORGANIZ ATION 12/23/2020 [facility] DATE CREATED AUTHOR AUTHOR'S ORGANIZ ATION 01/29/2025 [facility] Care Teams (unrecognized sec tion and content) Team Status: Active Member Role/Relationship Status Dates No Primary Care Physician Family Provider Active No Primary Care Physician Primary Care Provider Active Team Status: Inactive Member Role/Relationship Status Dates No Primary Care Physician Primary Care Provider Active Start: October 03, 2024 End: October 03, 2024 No Primary Care Physician Referring Provider Active Start: October 03, 2024 End: October 03, 2024 Gail Murphy CNM Attending Provider Active S tart: October 03, 2024 End: October 03, 2024 Team Status: Inactive Member Role/Relationship Status Dates No Primary Care Physician Primary Care Provider Active Start: October 10, 2024 End: October 10, 2024 No Primary Care Physician Referring Provider Active Start: October 10, 2024 End: October 10, 2024 Gail Murphy CNM Attending Provider Active S tart: October 10, 2024 End: October 10, 2024 Team Status: Active Member Role/Relationship Status Dates No Primary Care Physician Primary Care Provider Active Start: October 10, 2024 Gail Murphy CNM Attending Provider Active S tart: October 10, 2024 Team Status: Active Member Role/Relationship Status Dates No Primary Care Physician Primary Care Provider Active Team Status: Inactive Member Role/Relationship Status Dates No Primary Care Physician Primary Care Provider Active Start: October 10, 2024 End: October 10, 2024 Gail Murphy CNM Attending Provider Active S tart: October 10, 2024 End: October 10, 2024 Team Status: Inactive Member Role/Relationship Status Dates No Primary Care Physician Primary Care Provider Active Start: November 06, 2024 End: November 06, 2024 No Primary Care Physician Referring Provider Active Start: November 06, 2024 End: November 06, 2024 Gail Murphy CNM Attending Provider Active S tart: November 06, 2024 End: November 06, 2024 Team Status: Inactive Member Role/Relationship Status Dates No Primary Care Physician Primary Care Provider Active Start: December 03, 2024 End: December 03, 2024 No Primary Care Physician Referring Provider Active Start: December 03, 2024 End: December 03, 2024 Marlena Álvarez TRANSMITTER ENGINEER, TRANSMITTER ENGINEER-C Attending Provider Active Start: December 03, 2024 End: December 03, 2024 Team Status: Active Member Role/Relationship Status Dates No Primary Care Physician Primary care physician Activ e Team Status: Inactive Member Role/Relationship Status Dates No Primary Care Physician Primary care physician Activ e Start: October 03, 2024 End: October 03, 2024 No Primary Care Physician Referring Provider Active Start: October 03, 2024 End: October 03, 2024 Gail Murphy CNM Attending physician Active Start: October 03, 2024 End: October 03, 2024 Team Status: Inactive Member Role/Relationship Status Dates No Primary Care Physician Primary care physician Activ e Start: October 10, 2024 End: October 10, 2024 No Primary Care Physician Referring Provider Active Start: October 10, 2024 End: October 10, 2024 Gail Murphy CNM Attending physician Active Start: October 10, 2024 End: October 10, 2024 Team Status: Inactive Member Role/Relationship Status Dates No Primary Care Physician Primary care physician Activ e Start: October 10, 2024 End: October 10, 2024 Gail Murphy CNM Attending physician Active Start: October 10, 2024 End: October 10, 2024 Team Status: Inactive Member Role/Relationship Status Dates No Primary Care Physician Primary care physician Activ e Start: November 06, 2024 End: November 06, 2024 No Primary Care Physician Referring Provider Active Start: November 06, 2024 End: November 06, 2024 Gail Murphy CNM Attending physician Active Start: November 06, 2024 End: November 06, 2024 Team Status: Inactive Member Role/Relationship Status Dates No Primary Care Physician Primary care physician Activ e Start: December 03, 2024 End: December 03, 2024 No Primary Care Physician Referring Provider Active Start: December 03, 2024 End: December 03, 2024 Marlena Álvarez NP, TRANSMITTER ENGINEER-C Attending physician Active Start: December 03, 2024 End: December 03, 2024 Team Status: Inactive Member Role/Relationship Status Dates No Primary Care Physician Primary care physician Activ e Start: December 30, 2024 End: December 30, 2024 No Primary Care Physician Referring Provider Active Start: December 30, 2024 End: December 30, 2024 Gail Murphy CNM Attending physician Active Start: December 30, 2024 End: December 30, 2024 Team Status: Active Member Role/Relationship Status Dates No Primary Care Physician Primary care physician Activ e Start: December 30, 2024 Gail Murphy CNM Attending physician Active Start: December 30, 2024 Gail Murphy CNM Referring Provider Active S tart: December 30, 2024 Goals (unrecognized section and content) Type Care Experience Labor Preferences-CB /BF classes: []labor support person: []labor intervention preferences: []pain management options preferred: []cut cord/dad catch: []: []PP control planned: []discussed possible routes of delivery and associated risks: []special requests: [] FOR RECORDS PERTAINING TO PATIENTS WHO ARE OR HAVE BEEN ENROLLED IN A CHEMICAL DEPENDENCY/SUBSTANCEABUSE PROGRAM, SOME INFORMATION MAY BE OMITTED. This clinical summary was aggregated from multiple sources. Caution should be exercised in using it in the provision of clinical care. This summary normalizes information from multiple sources, and as a consequence, information in this document may materially change the coding, format and clinical context of patient data. In addition, data may be omitted in some cases. CLINICAL DECISIONS SHOULD BE BASED ON THE PRIMARY CLINICAL RECORDS. [employer] provides no warranty or guarantee of the accuracy or completeness of information in this document.
[2025-02-24 12:22] LABS: Hematocrit 35.9 % (37-47); Hemoglobin 12.4 g/dL (12.0-15.0); Immature Granulocytes Count 0.610 X10^3/uL (0.0-0.0); Mean Corp Hgb Conc 34.5 g/dL (32-36); Mean Corpuscular Volume 88.2 fL (81-99); Mean Platelet Vol. 8.9 fl (6.2-12.0); NRBC Flagged by Analyzer 0 % (0-5); POSITIVE MORPHOLOGY YES; Platelet Count 283 K/mm3 (150-450); RBC Distribution Width CV 12.9 % (11.6-14.6); RBC Distribution Width SD 42.3 fl (35.1-43.9); Red Blood Count 4.07 M/mm3 (4.2-5.4); White Blood Count 12.7 K/mm3 (4.4-11.0)
[2025-02-24 13:00] LABS: Differential Comment SCANNED; Differential Indicated SCAN CRITERIA MET
[2025-02-24 13:16] LABS: HIV Nonreactive (Nonreactive); Syphilis Antibodies Nonreactive (Nonreactive)
[2025-02-24 13:18] LABS: Glucose Challenge Gest 1H 50g 106 mg/dL (70-140)
== END | disposition home or self-care (01) ==
PROVIDERS: Visit Provider Obstetrics & Gynecology
DX: O09.92 Supervision of high risk pregnancy, unspecified, second trimester (principal); Z3A.00 Weeks of gestation of pregnancy not specified; Z13.1 Encounter for screening for diabetes mellitus
CPT/HCPCS: 36415; 82950; 85025; 86703; 86780

== ENCOUNTER → 2025-02-24 | Outpatient (CLI) | payer SELFPAY ==
--- NOTE | 2025-02-24 11:58 | US_ITS ---
PROCEDURE: OB LIMITED WITH BIOMETRICS 02/24/2025 REASON FOR EXAM: UTERINE SYNECHIAE TECHNIQUE: Procedure Code: [id number] Modality: US Procedure: OB LIMITED WITH BIOMETRICS COMPARISON: 10 October 2024. FINDINGS Number: 1 Position: cephalic Placental Position: anterior DIMENSIONS: Biparietal Diameter: 7.3 cm / 29 weeks and 3 days Head Circumference: 9.1 cm / 28 weeks and 0 days Abdominal Circumference: 23.5 cm / 27 weeks and 6 days Femur Length: 5.3 cm / 28 weeks and 0 days ESTIMATED WEIGHT: 1190 grams ESTIMATED WEIGHT PERCENTILE (24+ weeks): 34 th ESTIMATED GESTATIONAL AGE: Baseline: 28 weeks and 4 days By Ultrasound: 28 weeks and 3 days ESTIMATED DATE OF DELIVERY: Baseline: May 05, 2025. By Ultrasound: May 06, 2025. BIOPHYSICAL ASSESSMENT: Amniotic Fluid Volume: adequate Amniotic Fluid Index: 11.7 cm (8-24 cm normal range) Cardiac Motion: 148 beats per minute (average) Trunk and Limb Motion: Present. MATERNAL ANATOMY: Adnexa: Neither maternal ovary is successfully identified. Cervical Length (if measured): 3.1 cm US/OB Limited With Biometrics IMPRESSION: 1. Single living intrauterine gestation at 28 weeks and 4 days in the cephalic presentation. 2. heart rate of 148 bpm. 3. Incidental uterine synechiae again visualized. Reading Location: [id number]
--- OUTSIDE RECORDS SUMMARY | 2025-02-24 17:01 | XMS RPT_ITS | CCD ---
Author Organization [facility] CliniSymn Care Team Providers Care Angle Shear Operator Name Role Phone URSULA FLEMING Admitting Unavailable URSULA FLEMING Attending Unavailable URSULA FLEMING Primary Care Unavailable URSULA FLEMING Attending Unavailable URSULA FLEMING Primary Care Unavailable URSULA FLEMING Admitting Unavailable VINH RUIZ, Maurizio FU Unavailable ALDEN MASTERS MD Unavailable KAYLEN BROWNLEE-CLUCIANO Unavailable [phone] PAULINE RANGEL Unavailable Unavailable Amarilis RN, Mary [...] Attending Physician Preeti GILBERT-Marlena Wells Attending Physician [phone] Gail Murphy CNM Referring Provider Gail Murphy [...] Class(es) Dates Sig (Normalized) Sig (Original) Pnv No.300-Beuf-Hizhw Acid 1 EACH tablet (5 sources) Start: 10-30-2018 Pnv No.906-Lihc-Krboe Acid 1 EACH tablet Active 1 NMA [...] was ordered by DR Kathleen. fax #: [phone]. 12-16-2016 Past or Other Problems Problem Classification [...] Test Name Value Interpretation Reference Range Facility Occupational Therapy Technician Office Visit Reporton 01-27-2025 Occupational Therapy Technician Office Visit Report [facility] [address], [address] [place] [address] OFFICE VISIT Date of Service: 01/27/25 MR#: [id number] Acct: [id number] Name: DOLLY GRAY Rep #: [id number] : 1990 Provider: Dr. Jazmin Galeas DO Age/Sex: 34/F Location: [facility] Status: Signed Intake Vital Signs 11/06/24 14:41 12/30/24 11:16 01/27/25 09:14 Height 5 ft 2 in 5 ft 2 in 5 ft 2 in Weight: 136 lb 7 oz BMI 24.9 BP 106/69 Intake Visit Reasons: 24w 2d OB Golf Cart Attendant Required: No Is patient in pain?: No [...] 2 current occupational status: unemployed current occupation: [employer] pets and animals: Yes (Avoid litterbox) [...] physical activity do you participate in: none ben/mandaeism: Roman Catholic seatbelt use: always do you feel safe [...] - full term vacuum 6#5oz Male epidural [facility] Justin salinas Andrey 03/06/21 Mayeie 38 live - full term 5#8oz Female none [facility] Allan Balderas HPI 24w 2d OB Details: [...] amping. feeling much better. US ordered with [facility]. 12/03/24 -???-???-???-???-?? ?-???-???-???-???-? ??-???-???- 16w 3d 127 [...] -???-???-???-???-?? ?-???-? (more content not included)... Normal [facility] OB Anatomy w/ Transvaginalon 12-30-2024 OB Anatomy w/ Transvaginal [facility] [address] [place], [place] [address] OB Anatomy w/ Transvaginal MR#: [id number] Acct: [id number] Name: DOLLY GRAY Rep #: [id number] : 1990 F 34 From: Hari Aguirre MD PCP: Care Physician,No Primary Status: REG CLI Study: OB Anatomy w/ Transvaginal Date of Exam: 12/30 Exam# [id number] Ordering Dr: Gail Murphy CNM PROCEDURE: OB [...] the right of the placenta Reading Location: [id number] CC: VASYL Murphy; No Primary Care Physician Garland Machine Operator: Signed Normal [facility] Occupational Therapy Technician Office Visit Reporton 12-30-2024 Occupational Therapy Technician Office Visit Report [facility] [address], [address] [place] [address] OFFICE VISIT Date of Service: 12/30/24 MR#: [id number] Acct: [id number] Name: DOLLY GRAY Rep #: [id number] : 1990 Provider: VASYL Sam ams Age/Sex: 34/F Location: [facility] Status: Signed Intake Vital Signs 10/10/24 10:33 [...] 2 current occupational status: unemployed current occupation: [employer] pets and animals: Yes (Avoid litterbox) [...] physical activity do you participate in: none ben/mandaeism: Roman Catholic seatbelt use: always do you feel safe [...] - full term vacuum 6#5oz Male epidural [facility] Justin Balderas 03/06/21 Mayeie 38 live - full term 5#8oz Female none [facility] Allan Balderas HPI 20 wk ob Details: [...] amping. feeling much better. US ordered with [facility]. 12/03/24 -???-???-???-???-?? ?-???-???-???-???-? ??-???-???- 16w 3d 127 [...] First Trimest (more content not included)... Normal [facility] - Chemistry and C hemistry - challengeOrdered By: Marlena Álvarez on 12-03-2024 Glucose Ql (U) Negative [facility] - UrinalysisOrder ed By: Marlena Álvarez on 12-03-2024 Protein Ql (U) Negative [facility] Occupational Therapy Technician Office Visit Reporton 12-03-2024 Occupational Therapy Technician Office Visit Report [facility] [place] [address], [address] [place] [address] OFFICE VISIT Date of Service: 12/03/24 MR#: [id number] Acct: [id number] Name: DOLLY GRAY Rep #: [id number] : 1990 Provider: JOAO raphael Age/Sex: 34/F Location: [facility] Status: Signed Intake Vital Signs 10/10/24 10:33 11/06/24 14:41 12/03/24 09:47 12/03/24 09:53 Height 5 ft 2 in 5 ft 2 in 5 ft 2 in 5 ft 2 in Weight: 127 lb 9 oz BMI 23.3 BP 102/68 Intake Visit Reasons: 16 wk ob Chief Complaint: 16 Week OB Golf Cart Attendant Required: No Is patient in pain?: No [...] 2 current occupational status: unemployed current occupation: [employer] pets and animals: Yes (Avoid litterbox) [...] physical activity do you participate in: none ben/mandaeism: Roman Catholic seatbelt use: always do you feel safe [...] Hazards, Anticipated (more content not included)... Normal [facility] - Chemistry and C hemistry - challengeOrdered By: Gail Murphy on 11-06-2024 Glucose Ql (U) Negative [facility] - UrinalysisOrder ed By: Gail Murphy on 11-06-2024 Protein Ql (U) Negative [facility] Occupational Therapy Technician Office Visit Reporton 11-06-2024 Occupational Therapy Technician Office Visit Report [facility] [address], [address] [place] [address] OFFICE VISIT Date of Service: 11/06/24 MR#: [id number] Acct: [id number] Name: DOLLY GRAY Rep #: [id number] : 1990 Provider: VASYL Sam ams Age/Sex: 34/F Location: [facility] Status: Signed Intake Vital Signs 10/10/24 10:33 11/06/24 14:41 Height 5 ft 2 in 5 ft 2 in Weight: 123 lb 9 oz BMI 22.6 BP 109/73 Intake Visit Reasons: 12 wk ob Golf Cart Attendant Required: No Is patient in pain?: No [...] 2 current occupational status: unemployed current occupation: [employer] pets and animals: Yes (Avoid litterbox) [...] physical activity do you participate in: none ben/mandaeism: Roman Catholic seatbelt use: always do you feel safe [...] - full term vacuum 6#5oz Male epidural [facility] Justin Balderas 03/06/21 Mayeie 38 live - full term 5#8oz Female none [facility] Allan Balderas HPI 12 wk ob Details: [...] amping. feeling much better. US ordered with [facility]. ACOG First Trimester First Trimester: Desire for [...] Trimester Seco (more content not included)... Normal [facility] PAP IG HPV APTIMA 16/18,45on 10-13-2024 ADEQ Comment Normal . [facility] Comment on above: Order Comment: Speci men Comment: [id number] Specimen Comment: No. of containers..01 ThinPrep Vial Result Comment: Sati sfactory for evaluation. No endocervical component is identified. Performed By: #### L 7400.0280, M100.2200, L7000.1800 #### [facility] [address] [place], [place], [address] COMM . Normal . [facility] Comment on above: Order Comment: Speci men Comment: [id number] Specimen Comment: No. of containers..01 ThinPrep Vial Performed By: #### L 7400.0280, M100.2200, L7000.1800 #### [facility] [address] [place], [address] COMMENT Comment Normal . [facility] Comment on above: Order Comment: Speci men Comment: [id number] Specimen Comment: No. of containers..01 ThinPrep Vial Result Comment: This liquid based ThinPrep(R) pap test was screened with the use of an image guided system. Performed By: #### L 7400.0280, M100.2200, L7000.1800 #### [facility] [address] [place], [address] DIAG Comment Normal . [facility] Comment on above: Order Comment: Speci men Comment: [id number] Specimen Comment: No. of containers..01 ThinPrep Vial Result Comment: NEGA TIVE FOR INTRAEPITHELIAL LESION OR MALIGNANCY. Performed By: #### L 7400.0280, M100.2200, L7000.1800 #### [facility] [address] [place], [address] HPV APTIMA, HR Negative Normal Negative [facility] Comment on above: Order Comment: Speci men Comment: [id number] Specimen Comment: No. of containers..01 ThinPrep Vial Result Comment: This nucleic acid amplification test detects fourteen high- risk HPV types (16,18,31,33,35,39,45,51,52,56,58,59,66,68) without differentiation. Performed By: #### L 7400.0280, M100.2200, L7000.1800 #### [facility] [address] [place], [address] HPV Candelaria Rfx Comment Normal . [facility] Comment on above: Order Comment: Speci men Comment: [id number] Specimen Comment: No. of containers..01 ThinPrep Vial Result Comment: Crit eria not met, HPV Genotype not performed. Performed at: - [address] [id number] [employer] Analyst: Sandra Pena MD, Phone: [phone] Performed at: = - [facility], [place] [id number] [employer] Analyst: Sandra Pena MD, Phone: [phone] Performed By: #### L 7400.0280, M100.2200, L7000.1800 #### [facility] [address] [place], [address] PAPSMR Comment Normal . [facility] Comment on above: Order Comment: Speci men Comment: [id number] Specimen Comment: No. of containers..01 ThinPrep Vial [...] By: #### L 7400.0280, M100.2200, L7000.1800 #### [facility] [address] [place], [address] PERFORM Comment Normal . [facility] Comment on above: Order Comment: Speci men Comment: [id number] Specimen Comment: No. of containers..01 ThinPrep Vial Result Comment: Joann Woodward Architectural Inspector (ASCP) Performed By: #### L 7400.0280, M100.2200, L7000.1800 #### [facility] [address] [place], [address] Chlamydia/GC TEE aptimaon CHLAMY,NUC ACID Negative Normal Negative [facility] Comment on above: Performed By: #### L 7400.0280, M100.2200, L7000.1800 #### [facility] [address] [place], [address] GC BY NUC ACID Negative Normal Negative [facility] Comment on above: Result Comment: Perf ormed at: =G - [facility] [address] [place] [id number] [employer] Analyst: Sandra Pena MD, Phone: [phone] Performed By: #### L 7400.0280, M100.2200, L7000.1800 #### [facility] [address] [place], [address] Urine Cultureon 10-11-2024 URC Culture exhibits no growth. Normal [facility] Comment on above: Performed By: #### L 7400.0280, M100.2200, L7000.1800 #### [facility] [address] [place], [address] Absolute lymphocyte countOrd ered By: Gail Murphy on 10-10-2024 Lymphocytes Auto (Unsp spec) [#/Vol] 1.93 10*3/uL 0.83-4.51 [facility] Absolute neutrophil countOrd ered By: Gail Murphy on 10-10-2024 Neutrophils (Bld) [#/Vol] 5.3 10*3/uL 2.0-7.7 [facility] Automated lymphocyte count a s percentage of total leukocytesOrdered By: Gail Murphy on 10-10-2024 Lymphocytes/100 WBC Auto (Unsp spec) 24.4 % 19-41 [facility] Basophil percentageOrdered B y: Gail Murphy on 10-10-2024 Basophils/100 WBC (Bld) 0.3 % 0-1 [facility] CBC W/Diff, Automatedon 10-01 0-2024 Absolute Lymph 1.93 X10 3/uL Normal 0.83-4.51 [facility] Comment on above: Performed By: #### B TS, L509.4006, L3890.6006, L509.8002, L100.0100, L3890.6102, L3890.6301 #### [facility] [address] [place], [address] Absolute Neut 5.3 X10 3/uL Normal 2.0-7.7 [facility] Comment on above: Performed By: #### B TS, L509.4006, L3890.6006, L509.8002, L100.0100, L3890.6102, L3890.6301 #### [facility] [address] [place], [address] Basophils/100 WBC (Bld) 0.3 % Normal 0-1 [facility] Comment on above: Performed By: #### B TS, L509.4006, L3890.6006, L509.8002, L100.0100, L3890.6102, L3890.6301 #### [facility] [address] [place], [address] Eosinophils/100 WBC (Bld) 1.4 % Normal 0-5 [facility] Comment on above: Performed By: #### B TS, L509.4006, L3890.6006, L509.8002, L100.0100, L3890.6102, L3890.6301 #### [facility] [address] [place], [address] Erythrocyte distribution width (RBC) [Ratio] 11.9 % Normal 11.6-14.6 [facility] Comment on above: Performed By: #### B TS, L509.4006, L3890.6006, L509.8002, L100.0100, L3890.6102, L3890.6301 #### [facility] [address], [address] Hematocrit (Bld) [Volume fraction] 39.6 % Normal 37-47 [facility] Comment on above: Performed By: #### B TS, L509.4006, L3890.6006, L509.8002, L100.0100, L3890.6102, L3890.6301 #### [facility] [address] [place], [address] Hemoglobin (Bld) [Mass/Vol] 13.8 g/dL Normal 12.0-15.0 [facility] Comment on above: Performed By: #### B TS, L509.4006, L3890.6006, L509.8002, L100.0100, L3890.6102, L3890.6301 #### [facility] [address] [place], [address] IG% 0.600 Normal 0.0-0.9 [facility] Comment on above: Result Comment: IG% - Immature Granulocytes (promyelocytes, myelocytes and metamyelocytes) > 1% indicates that a LEFT SHIFT is Present. Performed By: #### B TS, L509.4006, L3890.6006, L509.8002, L100.0100, L3890.6102, L3890.6301 #### [facility] [address] [place], [address] Lymphocytes/100 WBC (Bld) 24.4 % Normal 19-41 [facility] Comment on above: Performed By: #### B TS, L509.4006, L3890.6006, L509.8002, L100.0100, L3890.6102, L3890.6301 #### [facility] [address] [place], [address] MCH (RBC) [Entitic mass] 29.6 pg Normal 27.0-32.0 [facility] Comment on above: Performed By: #### B TS, L509.4006, L3890.6006, L509.8002, L100.0100, L3890.6102, L3890.6301 #### [facility] [address] [place], [address] MCHC (RBC) [Mass/Vol] 34.8 g/dL Normal 32-36 [facility] Comment on above: Performed By: #### B TS, L509.4006, L3890.6006, L509.8002, L100.0100, L3890.6102, L3890.6301 #### [facility] [address] [place], [address] MCV (RBC) [Entitic vol] 85.0 fL Normal 81-99 [facility] Comment on above: Performed By: #### B TS, L509.4006, L3890.6006, L509.8002, L100.0100, L3890.6102, L3890.6301 #### [facility] [address] [place], [address] Monocytes/100 WBC (Bld) 6.7 % Normal 0-10 [facility] Comment on above: Performed By: #### B TS, L509.4006, L3890.6006, L509.8002, L100.0100, L3890.6102, L3890.6301 #### [facility] [address] [place], [address] Neutrophils/100 WBC (Bld) 66.6 % Normal 47-70 [facility] Comment on above: Performed By: #### B TS, L509.4006, L3890.6006, L509.8002, L100.0100, L3890.6102, L3890.6301 #### [facility] [address] [place], [address] Nucleated RBC (Bld) [#/Vol] 0 10*3/uL Normal 0-5 [facility] Comment on above: Performed By: #### B TS, L509.4006, L3890.6006, L509.8002, L100.0100, L3890.6102, L3890.6301 #### [facility] [address] [place], [address] Platelet mean volume (Bld) [Entitic vol] 8.8 fL Normal 6.2-12.0 [facility] Comment on above: Performed By: #### B TS, L509.4006, L3890.6006, L509.8002, L100.0100, L3890.6102, L3890.6301 #### [facility] [address] [place], [address] Platelets (Bld) [#/Vol] 343 10*3/uL Normal 150-450 [facility] Comment on above: Performed By: #### B TS, L509.4006, L3890.6006, L509.8002, L100.0100, L3890.6102, L3890.6301 #### [facility] [address] [place], [address] RBC (Bld) [#/Vol] 4.66 10*6/uL Normal 4.2-5.4 [facility] Comment on above: Performed By: #### B TS, L509.4006, L3890.6006, L509.8002, L100.0100, L3890.6102, L3890.6301 #### [facility] [address] [place], [address] RDW SD 36.3 fl Normal 35.1-43.9 [facility] Comment on above: Performed By: #### B TS, L509.4006, L3890.6006, L509.8002, L100.0100, L3890.6102, L3890.6301 #### [facility] [address] [place], [address] WBC (Bld) [#/Vol] 7.9 10*3/uL Normal 4.4-11.0 [facility] Comment on above: Performed By: #### B TS, L509.4006, L3890.6006, L509.8002, L100.0100, L3890.6102, L3890.6301 #### [facility] [address] [place], [address] Cervical or vaginal specimen microscopic examination by liquid based cytology (reportOrdered By: Gail Murphy on 10-10-2024 Cytology report Cyto stain.thin prep Doc (Cvx/Vag) Comment . [facility] Comment on above: Criteria not met, HP V Genotype not performed.Performed at: - [facility] [id number] Director: Sandra Pena MD, Phone: [phone] at: = - [facility] [address] [facility], [place] [id number] Director: Sandra Pena MD, Phone: [phone] Cervical or vagninal specime n microscopic examination by cytology stain (reported asOrdered By: Gail Murphy on 10-10-2024 Cytology report Cyto stain Doc (Cvx/Vag) Comment . [facility] Comment on above: The Pap smear is [...] rRNA TEE+probe Ql (Unsp spec) Negative Negative [facility] Detection in cervical specim en of any of human papilloma virus (HPV) 16, 18, 31, 33,Ordered By: Gail Murphy on 10-10-2024 HPV 16+18+31+33+35+39+45+51+5 2+56+58+59+66+68 DNA Probe+sig amp Ql (Cvx) Negative Negative [facility] Comment on above: This nucleic acid am plification test detects fourteen high-risk HPV types (16,18,31,33,35,39,45,51,52,56,58,59,66,68)without differentiation. Eosinophil percentageOrdered By: Gail Murphy on 10-10-2024 Eosinophils/100 WBC (Bld) 1.4 % 0-5 [facility] Erythrocyte distribution wid th ratioOrdered By: Gail Murphy on 10-10-2024 Erythrocyte distribution width (RBC) [Ratio] 11.9 % 11.6-14.6 [facility] Erythrocyte distribution wid th standard deviationOrdered By: Gail Murphy on 10-10-2024 Erythrocyte distribution width (RBC) [Ratio] 36.3 fl 35.1-43.9 [facility] HIVon 10-10-2024 HIV Non-Reactive Normal Nonreactive [facility] Comment on above: Result Comment: Non- Reactive Reactive Repeatedly reactive samples must be confirmed according to CDC recommended confirmatory algorithms. The subresults for either HIVAG or AHIV can be used as an aid in the selection of the confirmation algorithm for reactive samples. Send out specimens with Reactive results to [facility] for confirmation. Order the HIV antibody detection and differentiation: [id number] Performed By: #### B TS, L509.4006, L3890.6006, L509.8002, L100.0100, L3890.6102, L3890.6301 #### [facility] [address] [place], [place], [address] Hematocrit Auto (Bld) [Volum e fraction]Ordered By: Gail Murphy on 10-10-2024 Hematocrit (Bld) [Volume fraction] 39.6 % 37-47 [facility] Hemoglobin measurementOrdere d By: Gail Murphy on 10-10-2024 Hemoglobin (Bld) [Mass/Vol] 13.8 g/dL 12.0-15.0 [facility] Hepatitis C Antibodyon 10-10 Hepatitis C Ab Non-Reactive Normal Nonreactive [facility] Comment on above: Result Comment: Reac tive: Presumptive evidence of antibodies to HCV. Follow CDC recommendations for supplemental testing. Non-Reactive: Antibodies to HCV were not detected; does not exclude the possibility of exposure to HCV Reactive Results are presumptive evidence of antibodies to HCV. Follow CDC recommendations for supplemental testing. Order confirmation testing: HCV Quant by PCR testing - HCVPCR #[id number] Non Reactive: < 0.8 Equivocal: >/= 0.8 to < 1.0 Reactive: >/= 1.0 The CDC requires that a reactive/equivocal HCV antibody result be sent out for confirmation. HCV Quant by PCR testing. Performed By: #### B TS, L509.4006, L3890.6006, L509.8002, L100.0100, L3890.6102, L3890.6301 ####[facility] [address] [place], [place], [address] Immature granulocytes/100 WB C Auto (Bld)Ordered By: Gail Murphy on 10-10-2024 Immature granulocytes/100 WBC (Bld) 0.600 % 0.0-0.9 [facility] Comment on above: IG% - Immature Granu locytes (promyelocytes, myelocytes and metamyelocytes) > 1% indicates that a LEFT SHIFT is Present. L3890.6102on 10-10-2024 HEP B Surf Ag Non-Reactive Normal Nonreactive [facility] Comment on above: Result Comment: Reac tive: Presumptive evidence of HBV. Repeatedly reactive samples must be confirmed using a neutralization test ([employer] HBsAg Confirmatory Test) Non-Reactive: HBsAg not detected; does not exclude the possibility of exposure to HBV Performed By: #### B TS, L509.4006, L3890.6006, L509.8002, L100.0100, L3890.6102, L3890.6301 ####[facility] [address] [facility] [place], [place], [address] L509.4006on 10-10-2024 Rubella IgG REAC Normal Nonreactive [facility] Comment on above: Result Comment: Anti body Result: Interpretation Non-Reactive: Non-Immune Reactive: Immune The following results were obtained with the [employer] Rubella IgG assay. Results from assays of other manufacturers cannot be used interchangeably. Performed By: #### B TS, L509.4006, L3890.6006, L509.8002, L100.0100, L3890.6102, L3890.6301 ####[facility] [address] [place], [place], [id number] Laboratory - CytologyOrdered By: Gail Murphy on 10-10-2024 Architectural Inspector Cyto stain Nom (Cvx/Vag) [ID] Comment . [facility] Comment on above: Bg Young (ASCP) Laboratory - Microbiology an d Antimicrobial susceptibilityOrdered By: Gail Murphy on 10-10-2024 HBV surface Ag Ql (S) Non-Reactive Nonreactive [facility] Comment on above: Reactive: Presumptiv e evidence of HBV. Repeatedly reactive samples must be confirmed using a neutralization test ([employer] HBsAg Confirmatory Test)Non-Reactive: HBsAg not detected; does not exclude the possibility of exposure to HBV Laboratory - Miscellaneous t estsOrdered By: Gail Murphy on 10-10-2024 Service comment (Unsp spec) [Interp] . . [facility] MCV (mean corpuscular volume ) determinationOrdered By: Gail Murphy on 10-10-2024 MCV (RBC) [Entitic vol] 85.0 fL 81-99 [facility] Mean corpuscular hemoglobin (MCH) determinationOrdered By: Gail Murphy on 10-10-2024 MCH (RBC) [Entitic mass] 29.6 pg 27.0-32.0 [facility] Mean corpuscular hemoglobin concentration (MCHC) determinationOrdered By: Gail Murphy on 10-10-2024 MCHC (RBC) [Mass/Vol] 34.8 g/dL 32-36 [facility] Mean platelet volume determi nationOrdered By: Gail Murphy on 10-10-2024 Platelet mean volume (Bld) [Entitic vol] 8.8 fL 6.2-12.0 [facility] Monocyte percentageOrdered B y: Gail Murphy on 10-10-2024 Monocytes/100 WBC (Bld) 6.7 % 0-10 [facility] Neisseria gonorrhoeae nuclei c acid detection by amplified probe techniqueOrdered By: Gail Murphy on 10-10-2024 N. gonorrhoeae DNA TEE+probe Ql (Unsp spec) Negative Negative [facility] Comment on above: Performed at: =[address] [id number] Director: Sandra Pena MD, Phone: [phone] Neutrophil percentageOrdered By: Gail Murphy on 10-10-2024 Neutrophils/100 WBC (Bld) 66.6 % 47-70 [facility] No Panel InformationOrdered By: Gail Murphy on 10-10-2024 Pap Smear Specimen Adequacy Comment . [facility] Comment on above: Satisfactory for cade luation. No endocervical component is identified. HIV (1&2) Antibody Non-Reactive Nonreactive [facility] Comment on above: Non-ReactiveReactive Repeatedly reactive samples must be confirmed according to CDC recommended confirmatory algorithms. The subresults for either HIVAG or AHIV can be used as an aid in the selection of the confirmation algorithm for reactive samples.Send out specimens with Reactive results to [facility] for confirmation.Order the HIV antibody detection and differentiation: #[id number] Nucleated red blood cell per centageOrdered By: Gail Murphy on 10-10-2024 Nucleated RBC/100 WBC (Bld) [Ratio] 0 % 0-5 [facility] Occupational Therapy Technician Office Visit Reporton 10-10-2024 Occupational Therapy Technician Office Visit Report [facility] [address], [address] [place] [address] OFFICE VISIT Date of Service: 10/10/24 MR#: [id number] Acct: [id number] Name: DOLLY GRAY Rep #: [id number] : 1990 Provider: VASYL Sam ams Age/Sex: 34/F Location: [facility] Status: Signed Intake Vital Signs 03/06/21 07:32 10/03/24 12:30 10/10/24 10:33 Height 5 ft 2 in 5 ft 2 in 5 ft 2 in Weight: 126 lb 8 oz 127 lb 2 oz BMI 23.1 23.2 BP 102/60 115/80 Blood Pressure Location Lt brachial Position Sitting Intake Visit Reasons: *NEW* NOB LMP 08/10, LILIA 05/17 Chief Complaint: New OB Golf Cart Attendant Required: No Is patient in pain?: No [...] 2 current occupational status: unemployed current occupation: [employer] pets and animals: Yes (Avoid litterbox) [...] physical activity do you participate in: none ben/mandaeism: Roman Catholic seatbelt use: always do you feel safe [...] - full term vacuum 6#5oz Male epidural [facility] Wee rita Balderas 03/06/21 Aerie 38 live - full term 5#8oz Female none [facility] Weema n Andrey HPI *NEW* NOB LMP [...] Other Infect (more content not included)... Normal [facility] Platelet countOrdered By: Corey Murphy on 10-10-2024 Platelets (Bld) [#/Vol] 343 10*3/uL 150-450 [facility] RBC Auto (Bld) [#/Vol]Ordere d By: Gail Murphy on 10-10-2024 RBC (Bld) [#/Vol] 4.66 10*6/uL 4.2-5.4 [facility] Syphilis Antibodieson 2024 Syphilis Abs Non-Reactive Normal Nonreactive [facility] Comment on above: Performed By: #### B TS, L509.4006, L3890.6006, L509.8002, L100.0100, L3890.6102, L3890.6301 #### [facility] [address] [place] [place], [address] Type AND Screenon 10-10-2024 Ab SCREEN GEL Negative Normal [facility] Comment on above: Order Comment: PN Performed By: #### B TS, L509.4006, L3890.6006, L509.8002, L100.0100, L3890.6102, L3890.6301 ####[facility] [address] [place], [address] Urine cultureOrdered By: Allen Murphy on 10-10-2024 Bacteria identified Cx Nom (U) Culture exhibits no growth. [facility] White blood cell (WBC) count Ordered By: Gail Murphy on 10-10-2024 WBC (Bld) [#/Vol] 7.9 10*3/uL 4.4-11.0 [facility] - Chemistry and C hemistry - challengeOrdered By: Gail Murphy on 10-03-2024 HCG ( test) Ql (U) Positive [facility] Office Visit Reporton 2024 Office Visit Report [facility] [address] [place] [address] OFFICE VISIT Date of Service: 10/10/24 MR#: [id number] Acct: [id number] Patient: DOLLY GRAY Rep #: [id number] : 1990 Provider: VASYL Sam ams Age/Sex: 34/F Location: [facility] Status: Signed Intake Vital Signs 03/06/21 07:32 10/03/24 12:30 10/10/24 10:33 Height 5 ft 2 in 5 ft 2 in 5 ft 2 in Weight: 126 lb 8 oz 127 lb 2 oz BMI 23.1 23.2 BP 102/60 115/80 Blood Pressure Location Lt brachial Position Sitting Intake Visit Reasons: *NEW* NOB LMP 08/10, LILIA 05/17 Golf Cart Attendant Required: No Accompanied by: Daughter Is patient [...] Cosigner Signature: Date (if applicable) CC: Normal [facility] CBC + DIFFon 12-22-2020 BANDS 3 % Normal 0 - 5 [facility] Comment on above: Performed By: #### 2 40127 #### [facility],[address] [place] [address] 48887 Baso # 0.10 x10EE3/UL Normal 0.00 - 0.10 [facility] Comment on above: Performed By: #### 2 30714 #### [facility],[address] [place] [address] 88651 Basophils/100 WBC (Bld) 1.0 % Normal 0.0 - 2.0 [facility] Comment on above: Performed By: #### 2 14787 #### [facility],[address] [place] [address] 06442 Basophils/100 WBC (Bld) 2.0 % Normal 0.0 - 2.0 [facility] Comment on above: Performed By: #### 2 74856 #### [facility],[address] [place] [address] 72829 CBC + DIFF Normal [facility] Comment on above: Result Comment: CBC- COMPLETE BLOOD COUNT Performed By: #### 2 52381 #### [facility],[address] [place] [address] 29264 CELL COUNT 100 Normal [facility] Comment on above: Performed By: #### 2 46603 #### [facility],[address] [place] [address] EO 1.0 % Normal 0.0 - 4.0 [facility] Comment on above: Performed By: #### 2 04393 #### [facility],[address] [place], [place] [address] EO # 0.60 x10EE3/UL High 0.00 - 0.50 [facility] Comment on above: Performed By: #### 2 66340 #### [facility],[address] [place] [address] Eosinophils/100 WBC (Bld) 5.3 % Normal 0.0 - 7.0 [facility] Comment on above: Performed By: #### 2 88886 #### [facility],[address] [place] [address] Erythrocyte distribution width (RBC) [Ratio] 13.4 % Normal 12.0 - 15.6 [facility] Comment on above: Performed By: #### 2 55152 #### [facility],[address] [place] [address] Hematocrit (Bld) [Volume fraction] 35.7 % Normal 34.0 - 46.0 [facility] Comment on above: Performed By: #### 2 36893 #### [facility],[address] [place], [place] [address] Hemoglobin (Bld) [Mass/Vol] 12.4 g/dL Normal 12.0 - 16.0 [facility] Comment on above: Performed By: #### 2 40087 #### [facility],[address] [place] [address] 60881 Lymph # 2.70 x10EE3/UL Normal 0.80 - 2.80 [facility] Comment on above: Performed By: #### 2 50696 #### [facility],[address] [place], [place] [address] Lymphocytes/100 WBC (Bld) 22.9 % Normal 20.0 - 45. 0 [facility] Comment on above: Performed By: #### 2 07089 #### [facility],[address] [place], [place] [address] Lymphocytes/100 WBC (Bld) 58 % High 20 - 40 [facility] Comment on above: Performed By: #### 2 64030 #### [facility],[address] [place] [address] MANUAL DIFF SEE BELOW Normal [facility] Comment on above: Performed By: #### 2 46026 #### [facility],[address] [place] [address] MCH (RBC) [Entitic mass] 30 pg Normal 27 - 33 [facility] Comment on above: Performed By: #### 2 11790 #### [facility],[address] [place] [address] MCHC 35 X10 3 Normal 32 - 36 [facility] Comment on above: Performed By: #### 2 44659 #### [facility],[address] [place] [address] MCV (RBC) [Entitic vol] 87 fL Normal 80 - 99 [facility] Comment on above: Performed By: #### 2 29289 #### [facility],[address] [place] [address] META 2 % High 0 - 1 [facility] Comment on above: Performed By: #### 2 45753 #### [facility],[address] [place] [address] [place] # 0.70 x10EE3/UL Normal 0.20 - 1.00 [facility] Comment on above: Performed By: #### 2 50916 #### [facility],[address] [place] [address] MONOS 4 % Normal 0 - 8 [facility] Comment on above: Performed By: #### 2 55939 #### [facility],[address] [place] [address] MONOS % 6.1 % Normal 0.0 - 10.0 [facility] Comment on above: Performed By: #### 2 05227 #### [facility],[address] [place] [address] Morphology Jame (Bld) [Interp] REVIEWED Normal [facility] Comment on above: Result Comment: {CD] Performed By: #### 2 73823 #### [facility],[address] [place] [address] Neut # 7.50 x10EE3/UL High 1.50 - 7.10 [facility] Comment on above: Performed By: #### 2 34705 #### [place] [address] Neutrophils/100 WBC (Bld) 64.7 % Normal 46.0 - 76. 0 [facility] Comment on above: Performed By: #### 2 46951 #### [facility],[address] [place] [address] PLATELET 357 x10EE3/UL Normal 150 - 450 [facility] Comment on above: Performed By: #### 2 02756 #### [facility],[address] [place] [address] Platelet mean volume (Bld) [Entitic vol] 7.1 fL Normal 6.6 - 10.5 [facility] Comment on above: Result Comment: AUTO MATED DIFFERENTIAL Performed By: #### 2 45992 #### [facility],[address] [place] [address] RBC 4.10 x 10EE6/UL Normal 4.10 - 5.30 [facility] Comment on above: Performed By: #### 2 42129 #### [facility],[address] [place] [address] SEGS 30 % Low 50 - 70 [facility] Comment on above: Performed By: #### 2 10821 #### [place] [address] WBC 11.7 x 10EE3/UL High 4.5 - 10.8 [facility] Comment on above: Performed By: #### 2 46826 #### [facility],[address] [place] [address]1582 GLUCOSE CHALLENGE 50GM 1 TESSA [place] 12-22-2020 Glucose [Mass/Vol] 102 mg/dL Normal 70 - 140 [facility] Comment on above: Performed By: #### 2 83999 #### [facility],[address] [place] [address] 60044 GLUCOSE CHALLENGE 50GM 1 HOUR Normal [facility] Comment on above: Result Comment: GLUC OSE CHALLENGE 50 GMS 1 HOUR Performed By: #### 2 08135 #### [facility],[address] [place], [place] [address] HEPATITIS C AB IA [CCL]on Hepatitis C Ab IA Negative Normal NEGAT [facility] Comment on above: Result Comment: [facility] [address] [place] [address] Kirby Matias III, M.D. [id number] Performed By: #### 2 30906 #### [facility],[address] [place] [address] Hepatitis C Ab IAon 09-25-19 Hepatitis C Ab IA NEGAT Normal Negative [facility] Comment on above: Performed By: #### A HCV #### [facility] Routine Lab [address] [place] [address] #### POMER3 #### [facility] [address] [place] [address] [place] 3 [CCL]on Hepatitis B Surf. Ag Negative Normal NEGAT [facility] Comment on above: Performed By: #### 2 13006 #### [facility],[address] [place] [address] 15398 Reagin Ab RPR Ql (S) Non-Reactive Normal NR [facility] Comment on above: Performed By: #### 2 88694 #### [facility],[address] [place] [address] 97156 Rubella IgG Ab 1.91 Indexlue Normal [facility] Comment on above: Result Comment: Inde x values are interpreted as follows: Negative specimens <0.90 Equivocol specimens 0.90 to 0.99 Positive specimens >0.99 The magnitude of the measured result is not indicative of the amount of antibody present. [facility] [address] [place] [address] Kirby Matias III, M.D. [id number] Performed By: #### 2 54233 #### [facility],[address] [place], [place] [address] Rubella IgG Ab, Qual Positive Abnormal NEGAT [facility] Comment on above: Result Comment: Samp le is considered positive for IgG antibodies to rubella virus. A positive result indicates previous exposure to Rubella virus or vaccination. Performed By: #### 2 73262 #### [facility],[address] [place] [address] 09-24-2020 Rubella IgG Ab 1.91 Index Value Normal [facility] Comment on above: Performed By: #### A HCV #### [facility] Routine Lab [address] [place] [phone] #### POMER3 #### [facility] [address] [place] [address] Rubella IgG Ab, Qual Positive Abnormal Negative [facility] Comment on above: Performed By: #### A HCV #### [facility]ine Lab [address] [place] [phone] #### POMER3 #### [facility] [address] [place] [phone] Hepatitis B Surf. Ag NEGAT Normal Negative [facility] Comment on above: Performed By: #### A HCV #### [facility] [address] [place] [address] #### POMER3 #### [facility] [address] [place] [address] Reagin Ab RPR Ql (S) NR Normal Non Reactive Cl [facility] Comment on above: Performed By: #### A HCV #### [facility] [address] [place] [address] #### POMER3 #### [facility] [address] [place] [address] BB TYPE & SCREENon 1 ABO O Normal [facility] Comment on above: Performed By: #### 2 78024 #### [facility],[address] [place] [address] ANTIBODY SCR Negative Normal [facility] Comment on above: Performed By: #### 2 65011 #### [facility],[address] [place] [address] BB TYPE & SCREEN Normal [facility] Comment on above: Result Comment: TYPE , Rh, AND SCREEN Performed By: #### 2 67433 #### [facility],[address] [place] [address] Rh Nom (Bld) Positive Normal [facility] Comment on above: Performed By: #### 2 19834 #### [facility],[address] [place] [address] CBC + DIFFon 09-22-2020 Baso # 0.00 x10EE3/UL Normal 0.00 - 0.10 [facility] Comment on above: Performed By: #### 2 26740 #### [facility],[address],[place] [address] Basophils/100 WBC (Bld) 0.5 % Normal 0.0 - 2.0 [facility] Comment on above: Performed By: #### 2 37024 #### [facility],[address] [place] [address] CBC + DIFF Normal [facility] Comment on above: Result Comment: CBC- COMPLETE BLOOD COUNT Performed By: #### 2 84131 #### [facility],[address] [place] [address] EO # 0.10 x10EE3/UL Normal 0.00 - 0.50 [facility] Comment on above: Performed By: #### 2 94674 #### [facility],[address] [place] [address] Eosinophils/100 WBC (Bld) 0.8 % Normal 0.0 - 7.0 [facility] Comment on above: Performed By: #### 2 16256 #### [facility],[address] [place] [address] Erythrocyte distribution width (RBC) [Ratio] 12.4 % Normal 12.0 - 15.6 [facility] Comment on above: Performed By: #### 2 40367 #### [facility],[address] [place] [address] Hematocrit (Bld) [Volume fraction] 42.0 % Normal 34.0 - 46.0 [facility] Comment on above: Performed By: #### 2 37861 #### [facility],[address] [place] [address] Hemoglobin (Bld) [Mass/Vol] 14.8 g/dL Normal 12.0 - 16.0 [facility] Comment on above: Performed By: #### 2 73033 #### [facility],[address] [place] [address] Lymph # 2.10 x10EE3/UL Normal 0.80 - 2.80 [facility] Comment on above: Performed By: #### 2 31851 #### [facility],[address] [place] [address] Lymphocytes/100 WBC (Bld) 22.6 % Normal 20.0 - 45. 0 [facility] Comment on above: Performed By: #### 2 81957 #### [facility],[address] [place] [address] MANUAL DIFF N/A Normal [facility] Comment on above: Performed By: #### 2 33322 #### [facility],[address] [place] [address] MCH (RBC) [Entitic mass] 30 pg Normal 27 - 33 [facility] Comment on above: Performed By: #### 2 28688 #### [facility],[address] [place] [address] MCHC 35 X10 3 Normal 32 - 36 [facility] Comment on above: Performed By: #### 2 88667 #### [facility],[address] [place] [address] MCV (RBC) [Entitic vol] 85 fL Normal 80 - 99 [facility] Comment on above: Performed By: #### 2 92383 #### [facility],[address] [place] [address] [place] # 0.50 x10EE3/UL Normal 0.20 - 1.00 [facility] Comment on above: Performed By: #### 2 40419 #### [facility],[address] [place] [address] MONOS % 4.9 % Normal 0.0 - 10.0 [facility] Comment on above: Performed By: #### 2 66750 #### [facility],[address] [place] [address] Morphology Jame (Bld) [Interp] N/A Normal [facility] Comment on above: Result Comment: {CD] Performed By: #### 2 18603 #### [facility],[address] [place] [address] 73658 Neut # 6.70 x10EE3/UL Normal 1.50 - 7.10 [facility] Comment on above: Performed By: #### 2 75077 #### [facility],[address] [place] [address] 98692 Neutrophils/100 WBC (Bld) 71.2 % Normal 46.0 - 76. 0 [facility] Comment on above: Performed By: #### 2 88836 #### [facility],[address] [place] [address] 14014 PLATELET 348 x10EE3/UL Normal 150 - 450 [facility] Comment on above: Performed By: #### 2 49844 #### [facility],[address] [place] [address] 92961 Platelet mean volume (Bld) [Entitic vol] 7.3 fL Normal 6.6 - 10.5 [facility] Comment on above: Result Comment: AUTO MATED DIFFERENTIAL Performed By: #### 2 62035 #### [facility],[address] [place] [address] 93234 RBC 4.95 x 10EE6/UL Normal 4.10 - 5.30 [facility] Comment on above: Performed By: #### 2 45814 #### [facility],[address] [place] [address]1556 WBC 9.4 x 10EE3/UL Normal 4.5 - 10.8 [facility] Comment on above: Performed By: #### 2 54580 #### [facility],[address] [place] [address] 08183 TSHon 09-22-2020 TSH Qn 0.56 m[IU]/L Normal 0.35 - 3.74 [facility] Comment on above: Performed By: #### 2 35209 #### [facility],[address] [place] [address] 55455 URINALYSISon 09-22-2020 Bilirubin Ql (U) Negative Normal NORMAL: NEGATIVE [facility] Comment on above: Performed By: #### 2 50172 #### [facility],[address] [place] [address] 42327 Clarity (U) clear Normal NORMAL: CLEAR [facility] Comment on above: Performed By: #### 2 79419 #### [facility],[address] [place] [address] 02821 Color (U) p.yel Normal NORMAL: YELLOW [facility] Comment on above: Performed By: #### 2 54115 #### [facility],[address] [place] [address] 64154 Glucose Ql (U) NORM Normal NORMAL: NORMAL [facility] Comment on above: Performed By: #### 2 34480 #### [facility],[address] [place] [address] 79167 Hemoglobin Ql (U) Negative Normal NORMAL: NEGATIVE [facility] Comment on above: Performed By: #### 2 56654 #### [facility],[address] [place] [address] 77673 Ketone Negative Normal NORMAL: NEGATIVE [facility] Comment on above: Performed By: #### 2 78945 #### [facility],[address] [place] [address] 60052 Leukocytes Negative Normal NORMAL: NEGATIVE [facility] Comment on above: Performed By: #### 2 44469 #### [facility],[address] [place] [address] 31938 Nitrite Ql (U) Negative Normal NORMAL: NEGATIVE [facility] Comment on above: Performed By: #### 2 22462 #### [facility],[address] [place] [address] 33784 pH (U) 6 [pH] Normal NORMAL: 5.0-8.0 [facility] Comment on above: Performed By: #### 2 93633 #### [facility],[address] [place] [address] 17017 Protein Ql (U) Negative Normal NORMAL: NEGATIVE [facility] Comment on above: Performed By: #### 2 83498 #### [facility],[address] [place] [address] Sp [place] 1.010 Normal NORMAL: 1.010-1.030 [facility] Comment on above: Performed By: #### 2 97007 #### [facility],[address] [place] [address] Specimen Type Clean catch Normal [facility] Comment on above: Performed By: #### 2 37568 #### [facility],[address] [place] [address] Urinalysis dipstick W Reflex Microscopic panel (U) NOT INDICATED Normal [facility] Comment on above: Performed By: #### 2 92508 #### [facility],[address] [place] [address] Urobilinog NORM Normal NORMAL: NORMAL [facility] Comment on above: Performed By: #### 2 15973 #### [facility],[address] [place], [place] [address] Laboratory - Chemistry and C hemistry - challengeon 12-16-2016 Prolactin [Mass/Vol] 23.2 ng/mL Normal 2.0 - 3 0.0 ng/mL [facility], [facility] Vital Signs Date Time Vital Sign Value Performing Clinician Luma guadarrama 12-30-2024 11:16 Body height 157.48 cm No Primary Care Physician [facility] 12-30-2024 11:16040 Body mass index (BMI) [Ratio] 23.8 kg/m2 No Primary Care Physician [facility] 12-30-2024 11:16 Body weight 59.08 kg No Primary Care Physician [facility] 12-30-2024 11:16040 Diastolic blood pressure 71 mm[Hg] No Primary Care Physician [facility] 12-30-2024 11:16040 Systolic blood pressure 107 mm[Hg] No Primary Care Physician [facility] 12-03-2024 09:53-0400 Body height 157.48 cm No Primary Care Physician [facility] 12-03-2024 09:47-0400 Body mass index (BMI) [Ratio] 23.3 kg/m2 No Primary Care Physician [facility] 12-03-2024 09:47-0400 Body weight 57.86 kg No Primary Care Physician [facility] 12-03-2024 09:47-0400 Diastolic blood pressure 68 mm[Hg] No Primary Care Physician [facility] 12-03-2024 09:47-0400 Systolic blood pressure 102 mm[Hg] No Primary Care Physician [facility] 11-06-2024 14:41-0400 Body height 157.48 cm No Primary Care Physician [facility] 11-06-2024 14:41-0400 Body mass index (BMI) [Ratio] 22.6 kg/m2 No Primary Care Physician [facility] 11-06-2024 14:41-0400 Body weight 56.04 kg No Primary Care Physician [facility] 11-06-2024 14:41-0400 Diastolic blood pressure 73 mm[Hg] No Primary Care Physician [facility] 11-06-2024 14:41-0400 Systolic blood pressure 109 mm[Hg] No Primary Care Physician [facility] 10-10-2024 10:33-0400 Body height 157.48 cm No Primary Care Physician [facility] 10-10-2024 10:33-0400 Body mass index (BMI) [Ratio] 23.2 kg/m2 No Primary Care Physician [facility] 10-10-2024 10:33-0400 Body weight 57.66 kg No Primary Care Physician [facility] 10-10-2024 10:33-0400 Diastolic blood pressure 80 mm[Hg] No Primary Care Physician [facility] 10-10-2024 10:33-0400 Systolic blood pressure 115 mm[Hg] No Primary Care Physician [facility] 09-06-2023 10:37-0400 Body height 157.48 cm ANGELICA MORRISON RN [facility], [facility].; [facility] 09-06-2023 10:37-0400 Body mass index (BMI) [Ratio] 22.86 kg/m2 [facility]ISON [facility]. 09-06-2023 10:37-0400 Body surface area Derived from formula 1.57 m2 ANGELICA MORRISON RN [facility].; [facility]. 09-06-2023 10:37-0400 Body weight 56.7 kg AN[facility]ELICA [facility]ORRISON [facility].; [facility]. 09-06-2023 10:37-0400 Diastolic blood pressure 62 mm[Hg] ANGELICA MORRISON RN [facility].; [facility] [employer] Comment on above: Patient Position: Sitting; Cuff Location : Left Arm; Cuff Size: Standard 09-06-2023 10:37-0400 Heart rate 80 /min ANGELICA MORRISON RN [facility] ([employer]).; [facility] ([employer]). Comment on above: Pattern: Regular 09-06-2023 10:37-0400 Systolic blood pressure 95 mm[Hg] ANGELICA MORRISON RN [facility].; [facility] ([employer]). Comment on above: Patient Position: Sitting; Cuff Location : Left Arm; Cuff Size: Standard 08-21-2023 14:38-0400 Body height 157.48 cm Maurizio JUSTICE MD Work Phone: [facility] ([employer]).; [facility]via [facility] ([employer]). 08-21-2023 14:38-0400 Body mass index (BMI) [Ratio] 22.68 kg/m2 Maurizio JUSTICE MD Work Phone: [facility] ([employer]).; [facility] ([employer]). 08-21-2023 14:38-0400 Body surface area Derived from formula 1.56 m2 aMurizio JUSTICE MD Work Phone: [facility] ([employer]).; [facility] IllMeetingSense Software 08-21-2023 14:38-0400 Body weight 56.25 kg Maurizio JUSTICE MD Work Phone: [facility] ([employer]).; [facility] Chron[facility] IllMeetingSense Software 08-21-2023 14:38-0400 Diastolic blood pressure 57 mm[Hg] Maurizio JUSTICE MD Work Phone: [facility] ([employer]).; [facility] Chron[facility] IllMeetingSense Software Comment on above: Patient Position: Sitting; Cuff Location : Left Arm; Cuff Size: Standard 08-21-2023 14:38-0400 Heart rate 88 /min Maurizio JUSTICE MD Work Phone: [facility] Chron[facility] IllMeetingSense Software; [employer] [facility] IllMeetingSense Software Comment on above: Pattern: Regular 08-21-2023 14:38-0400 Systolic blood pressure 95 mm[Hg] Maurizio JUSTICE MD Work Phone: [facility] IllAmerican [facility]visors Group ([employer]).; [facility] IllAmerican [facility]visors Group ([employer]). Comment on above: Patient Position: Sitting; Cuff Location : Left Arm; Cuff Size: Standard 10-28-2021 10:35-0400 Body height 157.48 cm Pippa Rubio RN [facility].; [facility]. 10-28-2021 10:35-0400 Body mass index (BMI) [Ratio] 22.31 kg/m2 Pippa Rubio RN [facility].; [facility]. 10-28-2021 10:35-0400 Body surface area Derived from formula 1.55 m2 Pippa Rubio RN [facility], [facility].; [facility]. 10-28-2021 10:35-0400 Body weight 55.34 kg Pippa Rubio RN [facility], [facility].; [facility]. 10-28-2021 10:35-0400 Diastolic blood pressure 58 mm[Hg] Pippa Rubio RN [facility], [facility].; [employer] [facility], [facility] Comment on above: Patient Position: Sitting; Cuff Location : Left Arm; Cuff Size: Large 10-28-2021 10:35-0400 Heart rate 73 /min Pippa Rubio RN [facility], [facility].; [employer] [facility] Comment on above: Pattern: Regular 10-28-2021 10:35-0400 Systolic blood pressure 90 mm[Hg] Pippa Rubio RN [facility].; [employer] [facility] Comment on above: Patient Position: Sitting; Cuff Location : Left Arm; Cuff Size: Large 09-15-2016 15:19-0400 Body height 157.48 cm Pippa Rubio RN [facility], [facility].; [employer] [facility] 09-15-2016 15:19-0400 Body mass index (BMI) [Ratio] 21.95 kg/m2 Pippa Rubio RN [facility].; [facility], Inc[facility] 09-15-2016 15:19-0400 Body surface area Derived from formula 1.54 m2 Pippa Rubio RN [facility], [facility].; [employer] [facility], Inc. 09-15-2016 15:19-0400 Body weight 54.43 kg Pippa Rubio RN [facility], [facility].; [employer] [facility] 09-15-2016 15:19-0400 Diastolic blood pressure 74 mm[Hg] Pippa Rubio RN [facility].; [employer] [facility] Comment on above: Patient Position: Sitting; Cuff Location : Left Arm; Cuff Size: Standard 09-15-2016 15:19-0400 Heart rate 95 /min Pippa Rubio RN [facility].; [employer] [facility] [employer] Comment on above: Pattern: Regular 09-15-2016 15:19-0400 Systolic blood pressure 116 mm[Hg] Pippa Rubio RN [facility].; [employer] [facility] Comment on above: Patient Position: Sitting; Cuff Location : Left Arm; Cuff Size: Standard 08-05-2014 13:37-0400 Body height 157.48 cm Mary Olmos RN [facility].; [facility], [facility] 08-05-2014 13:37-0400 Body mass index (BMI) [Ratio] 20.12 kg/m2 Mary Olmos RN [facility], [facility].; [facility], [facility] 08-05-2014 13:37-0400 Body surface area Derived from formula 1.48 m2 Mary Olmos RN [facility], [facility].; [facility], Inc[facility] 08-05-2014 13:37-0400 Body weight 49.9 kg Mary Olmos RN [facility], [employer].; [facility], Inc[facility] 08-05-2014 13:37-0400 Diastolic blood pressure 77 mm[Hg] Mary Olmos RN [facility], [facility].; [facility] Comment on above: Patient Position: Sitting; Cuff Location : Left Arm; Cuff Size: Large 08-05-2014 13:37-0400 Heart rate 118 /min Mary Olmos RN [facility], [employer].; [facility] Comment on above: Pattern: Regular 08-05-2014 13:37-0400 Systolic blood pressure 135 mm[Hg] Mary Olmos RN [facility] IllAmerican [facility]visors Group ([employer]).; [facility] Comment on above: Patient Position: Sitting; Cuff Location : Left Arm; Cuff Size: Large 07-12-2010 14:03-0400 Body height 157.48 cm Maurizio JUSTICE MD Work Phone: [facility] IllAmerican [facility]visors Group ([employer]).; [employer] [facility] 07-12-2010 14:03-0400 Body mass index (BMI) [Percentile] Per age and sex 13 % Maurizio JUSTICE MD Work Phone: [facility] IllAmerican [facility]visors Group ([employer]).; [employer] [facility] 07-12-2010 14:03-0400 Body mass index (BMI) [Ratio] 18.47 kg/m2 Maurizio JUSTICE MD Work Phone: [employer]. 07-12-2010 14:03-0400 Body surface area Derived from formula 1.43 m2 Maurizio JUSTICE MD Work Phone: [employer]. 07-12-2010 14:03-0400 Body temperature 98.3 [degF] Maurizio JUSTICE MD Work Phone: [employer]. Comment on above: Method: Oral 07-12-2010 14:03-0400 Body weight 45.81 kg Maurizio JUSTICE MD Work Phone: [employer]. 07-12-2010 14:03-0400 Diastolic blood pressure 68 mm[Hg] Maurizio JUSTICE MD Work Phone: [employer]. Comment on above: Patient Position: Sitting; Cuff Location : Left Arm; Cuff Size: Large 07-12-2010 14:03-0400 Heart rate 96 /min Maurizio JUSTICE MD Work Phone: [employer]; [employer]. Comment on above: Pattern: Regular 07-12-2010 14:03-0400 Systolic blood pressure 106 mm[Hg] Maurizio JUSTIEC MD Work Phone: [employer]. Comment on above: Patient Position: Sitting; Cuff Location : Left Arm; Cuff Size: Large Encounters Encounter Date Encounter Type Care Provider Facility Start: 05-17-2025 ambulatory No Primary Car e Physician Facility:[facility] Start: 02-24-2025 ambulatory No Primary Car e Physician Facility:[facility] Start: 01-27-2025 End: 01-27-2025 ambulatory No Primary Care Physician Facility:[facility] Start: 12-30-2024 End: 12-30-2024 Patient encounter procedure Gail Murphy CN -Ultrasound [facility] Work Phone: Start: 12-30-2024 End: 12-30-2024 ambulatory No Primary Care Physician -[facility] Start: 12-30-2024 End: 12-30-2024 ambulatory No Primary Care Physician Facility:[facility] Start: 12-03-2024 End: 12-03-2024 Patient encounter procedure Marlena SHEPHERD -[facility] Work Phone: Start: 12-03-2024 End: 12-03-2024 ambulatory No Primary Care Physician -[facility] Start: 11-06-2024 End: 11-06-2024 Patient encounter procedure Gail WYATT -[facility] Work Phone: Start: 11-06-2024 End: 11-06-2024 ambulatory No Primary Care Physician -[facility] Start: 10-10-2024 End: 10-10-2024 Patient encounter procedure Gail WYATT -[facility] Work Phone: Start: 10-10-2024 End: 10-10-2024 ambulatory No Primary Care Physician -[facility] Start: 10-10-2024 End: 10-10-2024 ambulatory Gail Murphy Facility:[facility] Start: 10-03-2024 End: 10-03-2024 Patient encounter procedure Gail WYATT -[facility] Work Phone: Start: 10-03-2024 End: 10-03-2024 ambulatory No [facility] Start: 09-06-2023 End: 09-06-2023 Admission to same day surgery center Maurizio JUSTICE MD Work Phone: [facility] [employer] [facility] IllMe[employer] Software Start: 08-21-2023 End: 08-21-2023 Office outpatient visit 15 minutes Maurizio JUSTICE MD Work Phone: [facility] [employer] [facility] Start: 10-28-2021 End: 10-28-2021 Office outpatient visit 10 minutes Maurizio JUSTICE MD Work Phone: [employer]. Start: 12-22-2020 End: 12-22-2020 ambulatory [facility] Start: 09-22-2020 End: 09-22-2020 ambulatory [facility]IL[facility] Start: 05-15-2019 End: 05-15-2019 Lab Only Maurizio JUSTICE MD Work Phone: [employer]. Start: 12-16-2016 End: 12-16-2016 Lab Only Maurizio JUSTICE MD Work Phone: [employer]. Start: 09-15-2016 End: 09-15-2016 Office outpatient visit 15 minutes Maurizio JUSTICE MD Work Phone: [employer]. Start: 08-05-2014 End: 08-05-2014 Medical examinations/reports status Maurizio JUSTICE MD Work Phone: [employer]. Start: 08-05-2014 End: 08-05-2014 Office outpatient visit 40 minutes Maurizio JUSTICE MD Work Phone: [employer]. Start: 07-12-2010 End: 07-12-2010 Patient encounter procedure Maurizio JUSTICE MD Work Phone: [employer]. Start: 07-12-2010 End: 07-12-2010 Historical Summary Maurizio JUSTICE MD Work Phone: [employer] Procedures Date Procedure Procedure Detail Performing Clinician [...] HCV Quant by PCR testing - HCVPCR #[id number] Non Reactive: < 0.8 Equivocal: >/= 0.8 to < 1.0 Reactive: >/= 1.0The CDC requires that a reactive/equivocal HCV antibody result be sent out for confirmation. HCV Quant by PCR testing. Start: 10-10-2024 Rubella IgG measurement No Primary Care Physician Comment on above: Antibody Result: Int erpretationNon-Reactive: Non- ImmuneReactive: ImmuneThe following results were obtained with the [employer] Rubella IgG assay. Results from assays of [...] Comment: URIN ALYSIS Performed By: #### [id number] #### [facility],[address] [place] [address] Adenoid excision R NICKIE HUSTON MD Work Phone: Comment on above: Age 12 Tonsillectomy Maurizio JUSTICE MD Work Phone: Comment on above: Age 12 Plan of Treatment Date Care Activity Detail Author Start: 10-10-2024 CBC W Auto Differential panel - Blood [facility] Start: 10-10-2024 Hepatitis C antibody measurement [facility] Start: 10-10-2024 Rubella IgG measurement [facility] Start: 10-10-2024 Serologic test for syphilis [facility] Start: 10-10-2024 [facility] Start: 09-06-2023 Patient encounter procedure Medical; ACUTE ILLNESS - CYST ON HEAD [facility]OVAL [facility] Start: 06-Sep-2023 11:00-04:00 DYLAN ABDULLAHI Appointment [facility] Start: 09-15-2016 Patient Education OTITIS MEDIA INSTRUCTIONS Indication: Right acute otitis media Start: 15-Sep-2016 Instruction Type: Patient Education [facility] ([employer]).; [facility] ([employer]). Chlamydia deoxyribon ucleic acid detection [facility] Erythrocyte mean corpuscular volume determination [facility] Hematocrit [Volume Fraction] of Blood [facility] Hemoglobin [Mass/vol ume] in Blood [facility] Hepatitis B virus pete rface Ag [Presence] in Serum [facility] Leukocytes [#/volume ] in Blood [facility] Liquid based cervica l cytology screening [facility] Mean corpuscular hem oglobin concentration determination [facility] Mean corpuscular hem oglobin determination [facility] Neutrophil count [facility] Neutrophil percent differential count [facility] Platelets [#/volume] in Blood [facility] Red blood cell count [facility] Red cell distributio n width determination [facility] Ultrasonography in f irst trimester [facility] Immunizations Immunization Date Immunization Notes Care Provider Fa cility 05-15-2019 *IMMUNIZATION ADMIN ([id number]) Maurizio JUSTICE MD Work Phone: [facility] ([employer]; [employer] [facility] ([employer]). 05-15-2019 tetanus toxoid, redu manuel diphtheria toxoid, and acellular pertussis vaccine, adsorbed Maurizio JUSTICE MD Work Phone: [facility]; [facility] IllAmerican [facility] ([employer]). Comment on above: Site: Right DeltoidV IS Given: * Tdap (Tetanus, Diphtheria, Pertussis) (05/27/14) 05-15-2019 varicella virus vaccine Maurizio JUSTICE MD Work Phone: [facility] Chron[facility] IllMeetingSense Software; [employer] [facility] IllAmerican [facility]visors Group ([employer]). Comment on above: Site: Left ArmVIS Gi luis felipe: * Varicella (Chickenpox) (11/15/2018) 04-10-2019 varicella virus vaccine Maurizio JUSTICE MD Work Phone: [facility] IllMe[facility]; [facility] IllAmerican [facility]visors Group ([employer]). Comment on above: Health Dept 05-06-1997 diphtheria, tetanus toxoids and acellular pertussis vaccine Maurizio JUSTICE MD Work Phone: [facility] IllMe[employer]; [facility] IllMe[facility] [facility] 05-06-1997 measles, mumps and rubella virus vaccine Maurizio JUSTICE MD Work Phone: [facility] IllMe[employer]; [facility] IllAmerican [facility] ([employer]). 05-06-1997 poliovirus vaccine, inactivated Maurizio JUSTICE MD Work Phone: [facility] IllAmerican [facility]visors Group ([employer]).; [facility] ([employer]). 03-08-1994 diphtheria, tetanus toxoids and acellular pertussis vaccine Maurizio JUSTICE MD Work Phone: [facility] IllAmerican [facility]visors Group ([employer]).; [facility] ([employer]). 03-08-1994 measles, mumps and rubella virus vaccine Maurizio JUSTICE MD Work Phone: [facility] IllAmerican [facility]visors Group ([employer]).; [facility] ([employer]). 03-08-1994 poliovirus vaccine, inactivated Maurizio JUSTICE MD Work Phone: [facility] IllMe[employer]; [facility] 03-12-1993 diphtheria, tetanus toxoids and acellular pertussis vaccine Maurizio JUSTICE MD Work Phone: [facility] 1990 diphtheria, tetanus toxoids and acellular pertussis vaccine Maurizio JUSTICE MD Work Phone: [facility].; [facility] 1990 poliovirus vaccine, inactivated Maurizio JUSTICE MD Work Phone: [facility].; [facility] 1990 diphtheria, tetanus toxoids and acellular pertussis vaccine Maurizio JUSTICE MD Work Phone: [facility].; [facility] 1990 poliovirus vaccine, inactivated Maurizio JUSTICE MD Work Phone: [facility].; [facility] Payers Date Payer Category Payer Self-pay 2020 Unknown [id number] 1990 Unknown [id number] 2.16.84 [id number] 1990 Unknown [id number] 2.16.84 [id number] Unknown 90 Unknown [id number] 2.16.8 [id number] Unknown [id number] 2.16.8 [id number] Unknown [id number] 2.16.8 [id number] Unknown [id number] 2.16.8 [id number] Unknown [id number] 2.16.8 [id number] Unknown [id number] 2.16.8 [id number] Unknown [id number] 2.16.8 [id number] Unknown [id number] 2.16.8 [id number] Unknown [id number] 2.16.8 [id number] Unknown [id number] 2.16.8 [id number] Social History Date Type Detail Facility Alcohol Use: Alcohol Use: ; N o Alcohol Use. [facility]; [facility]) Current Work/Study Status Current Work/Study Status [facility]; [facility] ([employer]) Tobacco use: Tobacco use: ; N ever smoker. [facility]Me[facility]; [facility] ([employer]) Start: 1990 Female [facility] Start: 10-03-2024 Never smoked tobacco [facility] Sex Female [facility] Clinical Notes 10-10-2024 to 12-30-2024 Note Date & Type Note Facility 12-30-2024 Progress note [facility] 12-03-2024 Progress note [facility] 11-06-2024 Progress note [facility] 11-06-2024 Progress note Note Date/Time November 06, 2024 2:58pm [facility] [address], [address] [place] [address] OFFICE VISIT Date of Service: 11/06/24 MR#: [id number] Acct: [id number] Name: ISAACIVETDOLLY R Rep #: [id number] : 1990 Provider: VASYL Murphy Age/Sex: 34/F Location: [facility] Status: Signed Intake Vital Signs 10/10/24 10:33 11/06/24 14:41 Height 5 ft 2 in 5 ft 2 in Weight: 123 lb 9 oz BMI 22.6 BP 109/73 Intake Visit Reasons: 12 wk 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.] this visit. [place] appropriate handout given. 11/06/24 0436 <Electronically signed by Gail briseno CNM> Date _ Gail Murphy CNM Cosigner Signature: Date (if applicable) CC: ~ [facility] Work Phone: 1(666) 927-727507-10-2025 Evaluation note* Diagnosis Onset Date Resolution Status Admit Date Infertility associated with anovulation acute October 10, 2024 10:30am PCOS (polycystic ovarian syndrome) acute October 10, 2024 10:30am acute October 10 10:30am Supervision of high-risk acute October 10, 2024 10:30am [facility] Work Phone: 1(123) 759-546207-10-2025 Evaluation note* Diagnosis Onset Date Resolution Status [...] of high-risk acute November 06, 2024 2:36pm [facility] Work Phone: 1(858) 403-761807-10-2025 Evaluation note* Diagnosis Onset Date Resolution Status [...] of high-risk acute December 03 025 9:44am [facility] Work Phone: 1(142) 268-288307-10-2025 Evaluation note* Diagnosis Onset Date Resolution Status [...] of high-risk acute December 30, 2024 11:13am [facility] Work Phone: 1(538) 910-157507-10-2025 [facility] [address] [place] [address], [address] [place] [address] OFFICE VISIT Date of Service: 10/10/24 MR#: [id number] Acct: [id number] Name: DOLLY GRAY Rep #: [id number] : 1990 Provider: VASYL Murphy Age/Sex: 34/F Location: [facility] Status: Signed Intake Vital Signs 03/06/21 07:32 10/03/24 12:30 10/10/24 10:33 Height 5 ft 2 in 5 ft 2 in 5 ft 2 in Weight: 126 lb 8 oz 127 lb 2 oz BMI 23.1 23.2 BP 102/60 115/80 Blood Pressure Location Lt brachial Position Sitting Intake Visit Reasons: *NEW* NOB LMP 08/10, LILIA 05/17 Chief Complaint: New OB Golf Cart Attendant Required: No Is patient in pain?: No [...] 2 current occupational status: unemployed current occupation: [employer] pets and animals: Yes (Avoid litterbox) [...] physical activity do you participate in: none ben/mandaeism: Roman Catholic seatbelt use: always do you feel safe [...] full term vacuum 6#5oz Male epidu ral [facility] Nathalie A nthony 03/06/21 Aerie 38 live - full term 5#8oz Female none [facility] Nathalie Balderas HPI *NEW* NOB LMP 08/10, [...] Pulmonary (e.g.,TB,Asthma), Seasonal allergies, Drug/latex allergies/reactions, Breast, Streetcar Conductor surgery, Anesthetic complications, History of abnormal pap, [...] Cosigner Signature: Date (if applicable) CC: [facility] Work Phone: Evaluation note* Diagnosis Onset Date Resolution Status Admit Date Infertility associated with anovulation acute October 10, 2024 10:30am PCOS (polycystic ovarian syndrome) acute October 10, 2024 10:30am acute October 10 10:30am Supervision of high-risk acute October 10, 2024 10:30am [facility] Work Phone: Progress note Author Gail Murphy [facility] Note Date/Time October 10, 2024 11:[address] [facility] [address] [place] [address], [address] [place] [address] OFFICE VISIT Date of Service: 10/10/24 MR#: [id number] Acct: [id number] Name: DOLLY GRAY Rep #: [id number] : 1990 Provider: VASYL Murphy Age/Sex: 34/F Location: [facility] Status: Signed Intake Vital Signs 03/06/21 07:32 10/03/24 12:30 10/10/24 10:33 Height 5 ft 2 in 5 ft 2 in 5 ft 2 in Weight: 126 lb 8 oz 127 lb 2 oz BMI 23.1 23.2 BP 102/60 115/80 Blood Pressure Location Lt brachial Position Sitting Intake Visit Reasons: *NEW* NOB LMP 08/10, LILIA 05/17 Chief Complaint: New OB Golf Cart Attendant Required: No Is patient in pain?: No [...] 2 current occupational status: unemployed current occupation: [employer] pets and animals: Yes (Avoid litterbox) [...] physical activity do you participate in: none ben/mandaeism: Roman Catholic seatbelt use: always do you feel safe [...] full term vacuum 6#5oz Male epidu ral [facility] Nathalie Roberts nthony 03/06/21 Aerie 38 live - full term 5#8oz Female none [facility] Nathaile Balderas HPI *NEW* NOB LMP 08/10, LILIA [...] Pulmonary (e.g.,TB,Asthma), Seasonal allergies, Drug/latex allergies/reactions, Breast, Streetcar Conductor surgery, Anesthetic complications, History of abnormal pap, [...] Cosigner Signature: Date (if applicable) CC: ~ [facility] Work Phone: Progress note Author Marlena Álvarez [facility] Note Date/Time December 03, 2024 10:00am [facility] [address], [address] [place] [address] OFFICE VISIT Date of Service: 12/03/24 MR#: [id number] Acct: [id number] Name: DOLLY GRAY Rep #: [id number] : 1990 Provider: JOAO Álvarez Age/Sex: 34/F Location: [facility] Status: Signed Intake Vital Signs 10/10/24 10:33 11/06/24 14:41 12/03/24 09:47 12/03/24 09:53 Height 5 ft 2 in 5 ft 2 in 5 ft 2 in 5 ft 2 in Weight: 127 lb 9 oz BMI 23.3 BP 102/68 Intake Visit Reasons: 16 wk ob Chief Complaint: 16 Week OB Golf Cart Attendant Required: No Is patient in pain?: No [...] 2 current occupational status: unemployed current occupation: [employer] pets and animals: Yes (Avoid litterbox) [...] physical activity do you participate in: none ben/mandaeism: Roman Catholic seatbelt use: always do you feel safe [...] full term vacuum 6#5oz Male epidu ral [facility] Radamesterrell Andrey 03/06/21 Aerie 38 live - full term 5#8oz Female none [facility] Andrey HPI 16 wk ob Details: [...] and Symptoms of Preeclampsia, Feeding No , [place] [employer] Medical Leave or Disability [...] Comment: PRR, , LILIA 05/17/25, PC Joey Hesetr, Andrey (2) : Status: Acute Qualifiers: Weeks [...] 1001 <Electronically signed by Marlena briseno NP DIRECTOR MONEY-C> Date _ Marlena Álvarez NP DIRECTOR MONEY-C Cosigner Signature: Date (if applicable) CC: ~ [facility] Work Phone: Progress note Author Gail Murphy [facility] Note Date/Time December 30, 2024 11:35am [facility] [address], [address] [place] [address] OFFICE VISIT Date of Service: 12/30/24 MR#: [id number] Acct: [id number] Name: DOLLY GRAY Rep #: [id number] : 1990 Provider: VASYL Murphy Age/Sex: 34/F Location: [facility] Status: Signed Intake Vital Signs 10/10/24 10:33 [...] 2 current occupational status: unemployed current occupation: [employer] pets and animals: Yes (Avoid litterbox) [...] physical activity do you participate in: none ben/mandaeism: Roman Catholic seatbelt use: always do you feel safe [...] full term vacuum 6#5oz Male epidu ral [facility] Nathalie Balderas 03/06/21 Aerie 38 live - full term 5#8oz Female none [facility] Andrey HPI 20 wk ob Details: [...] this visit. [place] appropriate handout given. 12/30/24 2807 <Electronically signed by Gail briseno CNM> Date _ Gail Murphy CNM Cosigner Signature: Date (if applicable) CC: ~ [facility] Work Phone: Reason for referral (narrative)No reason for referral [facility] Work Phone: Summary Purpose Family History [...] 03, 2024 9:44am PCOS (polycystic ovarian syndrome) [facility] 2024 9:44am December 03, 2024 9:44am Supervision of high-risk [facility] 2024 9:44am Chief Complaint Admit Date PNOB [...] 03, 2024 9:44am PCOS (polycystic ovarian syndrome) [facility] 2024 9:44am December 03, 2024 9:44am Supervision of high-risk [facility] 2024 9:44am Infertility associated with anovulation December 30, 2024 11:13am PCOS (polycystic ovarian syndrome) [facility] 2024 11:13am December 30, 2024 11:13am Supervision of high-risk [facility] 2024 11:13am Additional Source Comments INFORMATION SOURCE (unrecogn ized section and content) DATE CREATED AUTHOR 09/25/2020 [facility] DATE CREATED AUTHOR AUTHOR'S ORGANIZ ATION 12/23/2020 [facility] DATE CREATED AUTHOR AUTHOR'S ORGANIZ ATION 01/29/2025 [facility] Care Teams (unrecognized sec tion and content) [...] 2024 End: December 03, 2024 Marlena Álvarez DIRECTOR MONEY, DIRECTOR MONEY-C Attending Provider Active Start: December 03, 2024 [...] End: December 03, 2024 Marlena Álvarez NP, DIRECTOR MONEY-C Attending physician Active Start: December 03, 2024 [...] BE BASED ON THE PRIMARY CLINICAL RECORDS. [employer] provides no warranty or guarantee of the accuracy or completeness of information in this document.
== END | disposition home or self-care (01) ==
LOC: US 11:55
PROVIDERS: Referring Provider Obstetrics & Gynecology; Visit Provider Obstetrics & Gynecology
DX: N85.6 Intrauterine synechiae (principal)
CPT/HCPCS: 76816